=== PATIENT | male | born 1960 | race Caucasian/White ===

== ENCOUNTER 2017-11-07 08:03 | Inpatient (IN) | payer OTHER ==
[2017-11-07] VITALS (31 sets, daily range): BP systolic 104–138; BP diastolic 71–96; PULSE 179–188; RESP 5–41; TEMP 96.6–98.3; O2SAT 97–98
[~2017-11-07] VITALS: Ht 190.5 cm; Wt 107.4 kg
[2017-11-07] MEDS: HEPARIN 25,000 UNITS/D5W 250ML IV PRN (10:00)
[2017-11-07] MEDS ORDERED: ADENOSINE IV SOLN 3 MG/ML 2 ML VIAL ONE (10:06)
[2017-11-07] MEDS ORDERED: NURSING INFORMATION XX SCH (10:15)
[2017-11-07] MEDS ORDERED: METOCLOPRAMIDE HCL 10 MG/2 ML VIAL IV PUSH PRN (10:15)
[2017-11-07] MEDS ORDERED: LACTULOSE SYRUP 20 GM/30 ML CUP PO PRN (10:15)
[2017-11-07] MEDS ORDERED: CHLORHEXIDINE GLUCONATE 2 % 1 PACK (2 CLOTHS) TOP PRN (10:15)
[2017-11-07] MEDS ORDERED: ONDANSETRON ODT 4 MG TAB PO PRN (10:15)
[2017-11-07] MEDS ORDERED: BISACODYL 10 MG SUPP RECTAL PRN (10:15)
[2017-11-07] MEDS ORDERED: SODIUM CHLORIDE 0.9% FLUSH 10 ML FLUSH IV FLUSH PRN (10:15)
[2017-11-07] MEDS ORDERED: MAGNESIUM HYDROXIDE SUSP 30 ML CUP PO PRN (10:15)
[2017-11-07] MEDS ORDERED: SENNOSIDES 8.6 MG TAB PO PRN (10:15)
[2017-11-07] MEDS ORDERED: RESP: ALBUTEROL 2.5 MG/IPRATROPIUM 0.5 MG NEB (PRN) INH (10:15)
[2017-11-07] MEDS ORDERED: METOPROLOL TARTRATE 5 MG/5 ML VIAL IV PUSH ONE (10:45)
--- NOTE | 2017-11-07 11:06 | HHI.HP ---
HPI Service Critical Care Medicine Primary Care Physician No Primary Care Physician Admission Diagnosis Diagnosis: Chief Complaint: Palpitations, shortness of breath Travel History International Travel<30 Days: No Contact w/Intl Traveler <30 Da: No Traveled to Known Affected Are: No History of Present Illness History of Present Illness HPI This is a 57-year-old male who has a history of coronary artery disease status post CABG with a reduced ejection fraction of 30% and an AICD who presents to the emergency department with palpitations that started overnight, constant, severe, associated with some shortness of breath. He denies any chest discomfort. He says his AICD is set to fire at 220. He has never had symptoms like this before. He does not take any medications and does not currently follow with a spa therapist. One month ago he was evaluated in our chest pain center and had a normal stress test. He later developed shingles which was the etiology of his pain. Patient was evaluated in the ER at the [place]. He received adenosine 12 mg IV with no change in his heart rate. He was diagnosed to be in slow V. tach. Dr. Hassan from cardiology was contacted by ER physician and recommended transferring patient to the [facility] after being initiated on heparin and amiodarone drips. Patient was accepted for admission by critical care medicine service. I evaluated the patient immediately on his arrival to the ICU. At the time of my evaluation patient was resting in bed with a heart rate in the 180s however did not appear to be in any acute distress. He did complain of palpitations however denies any chest pain. He did have minimal shortness of breath at the time. Patient was on heparin and amiodarone drips. Adenosine 12 mg IV push was administered with 12-lead EKG running. Patient had absolutely no change in his heart rate which was at 188 bpm. His ICD was interrogated by ICD rep. It was reading the rhythm as SVT however there was limited data as patient was still in the acute episode per ICD rep. I spoke with Dr. Hassan personally evaluating patient and he recommended attempting Lopressor 5 mg IV for rate control PFSH Past Medical History Atrial Fibrillation: Yes Cardiovascular Problems: Yes (CAD, AFIB) Coronary Artery Disease: Yes Myocardial Infarction: Yes (X2) Past Surgical History AICD: Yes Cardiac Surgery: Yes (ABLATION, AICD) Coronary Artery Bypass Graft: Yes (X3) Social History Alcohol Use: Yes Tobacco Use: Yes (CIGARS OCCASIONALLY) Substance Use: No Allergies-Medications (Allergen,Severity, Reaction): Coded Allergies: No Known Allergies (Verified Allergy, Unknown, 11/07/17) Reported Meds & Prescriptions Reported Meds & Active Scripts Active No Active Prescriptions or Reported Medications Review of Systems Except as stated in HPI: all other systems reviewed are Neg Physical Exam Narrative GENERAL:Well appearing, no acute distress SKIN: Focused skin assessment warm and dry. HEAD: Atraumatic. Normocephalic. EYES: Pupils equal and round. No injection or drainage. ENT: Moist mucous membranes NECK: Trachea midline. CARDIOVASCULAR: Tachycardic. No murmur appreciated. RESPIRATORY: Clear to auscultation. Breath sounds equal bilaterally. GASTROINTESTINAL: Abdomen soft, non-tender, nondistended. MUSCULOSKELETAL: No obvious deformities. NEUROLOGICAL: Awake and alert. No obvious cranial nerve deficits. Moving all extremities. PSYCHIATRIC: Appropriate mood and affect; insight and judgment normal. Review of Systems Constitutional: DENIES: Diaphoretic episodes, Fatigue, Fever, Weight gain, Weight loss, Chills, Dizziness, Change in appetite, Night Sweats Endocrine: DENIES: Heat/cold intolerance, Polydipsia, Polyuria, Polyphagia Eyes: DENIES: Blurred vision, Diplopia, Eye inflammation, Eye pain, Vision loss , Photosensitivity, Double Vision Ears, nose, mouth, throat: DENIES: Tinnitus, Hearing loss, Vertigo, Nasal discharge, Oral lesions, Throat pain, Hoarseness, Ear Pain, Running Nose, Epistaxis, Sinus Pain, Toothache, Odynophagia Respiratory: COMPLAINS OF: Shortness of breath, DENIES: Apneas, Cough, Snoring , Wheezing, Hemoptysis, Sputum production Cardiovascular: COMPLAINS OF: Palpitations, DENIES: Chest pain, Syncope, Dyspnea on Exertion, PND, Lower Extremity Edema, Orthopnea, Claudication Gastrointestinal: DENIES: Abdominal pain, Black stools, Bloody stools, Constipation, Diarrhea, Nausea, Vomiting, Difficulty Swallowing, Anorexia Genitourinary: DENIES: Sexual dysfunction, Urinary frequency, Urinary incontinence, Urgency, Hematuria, Dysuria, Nocturia, Penile Discharge, Testicular Pain, Testicular Swelling Musculoskeletal: COMPLAINS OF: Back pain, DENIES: Joint pain, Muscle aches, Stiffness, Joint Swelling, Neck pain Integumentary: DENIES: Abnormal pigmentation, Nail changes, Pruritus, Rash Hematologic/lymphatic: DENIES: Bruising, Lymphadenopathy Immunologic/allergic: DENIES: Eczema, Urticaria Neurologic: DENIES: Abnormal gait, Headache, Localized weakness, Paresthesias, Seizures, Speech Problems, Tremor, Poor Balance Psychiatric: DENIES: Anxiety, Confusion, Mood changes, Depression, Hallucinations, Agitation, Suicidal Ideation, Homicidal Ideation, Delusions ROS Per HPI Physical Exam Physical Exam HEENT/Neuro: No pallor or icterus, tongue moist, DEBBIE, Awake alert oriented 3 , nonfocal grossly, moving all 4 extremities Neck: No JVD Chest/pulmonary: CTA bilaterally Cardiovascular: S1-S2 regular, ventricular rate 188 bpm, no gallop or murmur. Healed sternotomy scar noted. GI/abdomen: Soft, nontender, bowel sounds present Extremities: Warm bilaterally, no edema Laboratory Unremarkable at the [facility] Caprini VTE Risk Assessment Caprini VTE Risk Assessment: Mod/High Risk (score >= 2) Caprini Risk Assessment Model Point Value = 1 Point Value = 2 Point Value = 3 Point Value = 5 Age 41-60 Minor surgery BMI > 25 kg/m2 Swollen legs Varicose veins or History of unexplained or recurrent spontaneous Oral contraceptives or hormone replacement Sepsis (< 1 month) Serious lung disease, including pneumonia (< 1 month) Abnormal pulmonary function Acute myocardial infarction Congestive heart failure (< 1 month) History of inflammatory bowel disease Medical patient at bed rest Age 61-74 Arthroscopic surgery Major open surgery (> 45 min) Laparoscopic surgery (> 45 min) Malignancy Confined to bed (> 72 hours) Immobilizing plaster cast Central venous access Age >= 75 History of VTE Family history of VTE Factor V Leiden Prothrombin [id number] Lupus anticoagulant Anticardiolipin antibodies Elevated serum homocysteine Heparin-induced thrombocytopenia Other congenital or acquired thrombophilia Stroke (< 1 month) Elective arthroplasty Hip, pelvis, or leg fracture Acute spinal cord injury (< 1 month) Prophylaxis Regimen Total Risk Factor Score Risk Level Prophylaxis Regimen 0-1 Low Early ambulation 2 Moderate Order ONE of the following: *Sequential Compression Device (SCD) *Heparin 5000 units SQ BID 3-4 Higher Order ONE of the following medications: *Heparin 5000 units SQ TID *Enoxaparin/Lovenox 40 mg SQ daily (WT < 150 kg, CrCl > 30 mL/min) *Enoxaparin/Lovenox 30 mg SQ daily (WT < 150 kg, CrCl > 10-29 mL/min) *Enoxaparin/Lovenox 30 mg SQ BID (WT < 150 kg, CrCl > 30 mL/min) AND/OR *Sequential Compression Device (SCD) 5 or more Highest Order ONE of the following medications: *Heparin 5000 units SQ TID (Preferred with Epidurals) *Enoxaparin/Lovenox 40 mg SQ daily (WT < 150 kg, CrCl > 30 mL/min) *Enoxaparin/Lovenox 30 mg SQ daily (WT < 150 kg, CrCl > 10-29 mL/min) *Enoxaparin/Lovenox 30 mg SQ BID (WT < 150 kg, CrCl > 30 mL/min) AND *Sequential Compression Device (SCD) Assessment and Plan Assessment and Plan 57-year-old male with : Tachyarrhythmia: SVT versus slow V. tach CAD Ischemic cardiomyopathy History of A. fib History of CABG/Maze procedure History of ICD placement Plan: Neuro: Follow neuro status. avoid sedatives and narcotics. Cardiovascular: Started on heparin for anticoagulation and amiodarone gtt. following bolus. Did not respond with adenosine 12 mg IV with absolutely no change in heart rate raising concern for accessory pathway SVT versus slow V. tach. Discussed with Dr. Moe Hassan from cardiology. He recommends awaiting 2D echo and administering Lopressor 5 mg IV. He will be evaluating patient to decide further course of action. If patient does not convert possible need for ИРИНА and electrical cardioversion. Pulmonary: Supplemental O2. GI/liver: N.p.o. for now until cardiology evaluation. Renal/: IV hydration, strict intake output, monitor and replete electrolytes, follow BUN/creatinine. ID: No indication for antibiotics at this time. Heme: On any coagulation with heparin. Endocrine: Watch for hyperglycemia, SSI for glycemic control if needed Prophylaxis: On heparin for full anticoagulation. No indication for GI prophylaxis at this time. Further recommendations per Dr. Moe Hassan. Discussed with Dr. Dr. Hassan personally. Discussed current clinical status with patient and updated regarding plan of care and he voiced understanding and was agreeable. Chago Choi MD November 07, 2017 11:06
[2017-11-07] MEDS: SODIUM CHLOR 0.9% 1000 ML INJ 1,000 ML IV SCH ×2 (11:23→20:20)
[2017-11-07] MEDS ORDERED: AMIODARONE INJ 450 MG in DEXTROSE 5% IN WATE(EXCEL) INJ 241 ML IV PRN ×2 (14:58)
[2017-11-07] MEDS ORDERED: HEPARIN-D5W 25,000 U/250 ML 250 ML IV PRN (15:00)
[2017-11-07] MEDS ORDERED: AMIODARONE INJ 450 MG in D5W (EXCEL BAG) INJ 241 ML IV PRN (15:00)
[2017-11-07] MEDS: AMIODARONE INJ 450 MG in SODIUM CHLOR 0.9% 250 ML INJ 241 ML IV PRN (15:36)
[2017-11-07 15:40] LABS: HEMATOCRIT 44.1 % (39.0-51.0); HEMOGLOBIN 14.9 GM/DL (13.0-17.0); MEAN CELL VOLUME 99.8 FL (80.0-100.0); MEAN CORPUSCULAR HEMOGLOBIN 33.7 PG (27.0-34.0); MEAN CORPUSCULAR HGB CONC 33.7 % (32.0-36.0); MEAN PLATELET VOLUME 10.2 FL (7.0-11.0); PLATELET COUNT 178 TH/MM3 (150-450); RED BLOOD COUNT 4.42 MIL/MM3 (4.50-5.90); RED CELL DISTRIBUTION WIDTH 13.8 % (11.6-17.2); WHITE BLOOD COUNT 12.4 TH/MM3 (4.0-11.0)
--- NOTE | 2017-11-07 18:04 | ECHRPT ---
Indication: EVAL FOR APICAL THROMBUS CONCLUSIONS The left ventricular systolic function is severely reduced with an estimated ejection fraction @ 30% Severely dilated left ventricle. Mild concentric left ventricular hypertrophy. There is global left ventricular dysfunction. The left atrial size is moderately dilated. Trace mitral valve regurgitation. There is trace tricuspid valve regurgitation. The pulmonary valve is not well visualized. BP: / HR: Rhythm: Other MEASUREMENTS (Male / Female) Normal Values Technical Quality:Poor 2D ECHO LV Diastolic Diameter PLAX 6.0 cm 4.2 - 5.9 / 3.9 - 5.3 cm LV Systolic Diameter PLAX 5.8 cm IVS Diastolic Thickness 1.3 cm 0.6 - 1.0 / 0.6 - 0.9 cm LVPW Diastolic Thickness 1.2 cm 0.6 - 1.0 / 0.6 - 0.9 cm LV Relative Wall Thickness 0.4 LVOT Diameter 2.1 cm LA Systolic Diameter LX 4.8 cm 3.0 - 4.0 / 2.7 - 3.8 cm M-MODE Aortic Root Diameter MM 3.0 cm AV Cusp Separation MM 1.5 cm DOPPLER AV Peak Velocity 81.4 cm/s AV Peak Gradient 2.7 mmHg LVOT Peak Velocity 66.6 cm/s LVOT Peak Gradient 1.8 mmHg AV Area Cont Eq pk 2.8 cm MV Area PHT 12.2 cm PV Peak Velocity 59.7 cm/s PV Peak Gradient 1.4 mmHg FINDINGS LEFT VENTRICLE The left ventricular systolic function is severely reduced with an estimated ejection fraction less than 20%. Severely dilated left ventricle. Mild concentric left ventricular hypertrophy. There is global left ventricular dysfunction. RIGHT VENTRICLE Normal right ventricular size and systolic function. LEFT ATRIUM The left atrial size is moderately dilated. RIGHT ATRIUM The right atrial size is normal. ATRIAL SEPTUM Normal atrial septal thickness without atrial level shunting by limited color doppler interrogation. AORTA The aortic root and proximal ascending aorta are normal in size on limited imaging. MITRAL VALVE Structurally normal mitral valve. Trace mitral valve regurgitation. AORTIC VALVE Trileaflet aortic valve. No aortic valve stenosis or regurgitation. TRICUSPID VALVE Structurally normal tricuspid valve. There is trace tricuspid valve regurgitation. PULMONARY VALVE The pulmonary valve is not well visualized. VESSELS The inferior vena cava is normal in size. PERICARDIUM No pericardial effusion. Moe Hassan MD, FACC, [facility] (Electronically Signed) Final Date:07 Nov 2017 18:03
[2017-11-07] MEDS ORDERED: ASPIRIN EC 81 MG TABEC PO ONE (20:00)
[2017-11-07] MEDS: DOCUSATE SODIUM 50 MG/SENNA 8.6 MG TAB PO SCH (20:19)
[2017-11-07] MEDS: SODIUM CHLORIDE 0.9% FLUSH 10 ML FLUSH IV FLUSH SCH (20:19)
--- NOTE | 2017-11-07 21:29 | MB ---
cc: Moe Hassan MD DATE: 11/07/2017 HISTORY OF PRESENT ILLNESS: Alonzo is a very pleasant 57-year-old gentleman with history of CABG which was done in 2013 cardiomyopathy, with a known ejection fraction of 30%, status post ICD, presents to the [place] ER with chief complaint of palpitations, dyspnea. Denied any chest pain. Denied any syncope. He was transferred for further evaluation. Dr. Choi tried adenosine 12 mg IV push, which did not improve the arrhythmia. His ICD was interrogated, which showed supraventricular etiology. The patient was put on the amiodarone drip and an attempt was made to give him 5 mg of IV Lopressor, which he did not tolerate due to a mean arterial pressure of 60 and diaphoresis. The patient otherwise denies any fever, chills, cough, GI or , bleeding, PND, orthopnea, dizziness. PAST MEDICAL HISTORY: As per history of present illness. The patient has a history of AFib, myocardial infarction x 2, history of ablation. SOCIAL HISTORY: Drinks alcohol, smokes cigars occasionally. ALLERGIES: NONE. CURRENT MEDICATIONS: In the hospital, IV heparin IV amiodarone. PHYSICAL EXAMINATION: VITAL SIGNS: Pulse 183, blood pressure 129/93, temperature 98.3, sats 98% on room air. GENERAL: He is alert and oriented x 3, in no acute distress. NECK: Supple. No JVD. No bruit. CARDIOVASCULAR: S1, S2. No murmurs, rubs, gallops. PULMONARY: Lungs clear to auscultation bilaterally. ABDOMEN: Soft, nontender, nondistended, with positive bowel sounds. EXTREMITIES: No lower extremity edema. LABORATORY DATA: Chest x-ray shows no acute cardiopulmonary disease, status post CABG, mild cardiomegaly. STUDY: EKG is not available to review in the computer. His echocardiogram read by myself shows an EF of 30%, mild LVH, trace MR, PA pressure not determined. LABORATORY DATA: White count 12.4, hemoglobin 14.9, hematocrit 44.1, platelet count 78. INR is 31.4. Sodium 144, potassium 3.6, chloride 111, bicarbonate 24.0, BUN 15, creatinine 1.0, glucose 131. Troponin less than 0.02. BNP is 68. HE HAS THE FOLLOWING DIAGNOSES: 1. Supraventricular tachycardia. 2. Coronary artery disease. 3. Cardiomyopathy. 4. Status post implantable cardioverter defibrillator. 5. Elevated white count. 6. Palpitations. 7. Dyspnea. 8. Tobacco abuse. PLAN: At this point in time, the ICD interrogation shows SVT. Due to the history of atrial fibrillation, I have recommended not to cardiovert him, particularly in the context of cardiomyopathy as well. He is euvolemic by BMP and his ejection fraction is 30% on the current echo, which is his baseline. At this point in time, I recommend continuing IV heparin. We will add aspirin. We will continue to trend the troponins, continue the amiodarone drip. We will get a consult with Dr. Felder in the a.m. Continue telemetry monitoring and continue to follow trends in the heart rate and blood pressure and symptoms. Strongly recommend smoking cessation. MD GIULIANA Owens/FROILAN , 07:55 PM , 09:28 PM
[2017-11-07] MEDS: MELATONIN 5 MG TAB PO SCH (21:57)
[2017-11-08] VITALS (63 sets, daily range): BP systolic 109–165; BP diastolic 54–93; PULSE 92–184; RESP 17–38; TEMP 96.8–99.3; O2SAT 91–100
[2017-11-08] MEDS: CHLORHEXIDINE GLUCONATE 2 % 1 PACK (2 CLOTHS) TOP SCH (01:03)
[2017-11-08] MEDS: MORPHINE SULFATE 4 MG/ML INJ IV PUSH PRN ×4 (02:45→21:46)
[2017-11-08 03:57] LABS: AUTOMATED NEUTROPHIL # 11.2 TH/MM3 (1.8-7.7); BASOPHIL # 0.1 TH/MM3 (0-0.2); BASOPHIL % 0.4 % (0.0-2.0); EOSINOPHIL % 0.1 % (0.0-4.0); HEMATOCRIT 43.8 % (39.0-51.0); HEMOGLOBIN 14.7 GM/DL (13.0-17.0); LYMPH % 14.8 % (9.0-44.0); LYMPHOCYTE # 2.2 TH/MM3 (1.0-4.8); MEAN CELL VOLUME 99.2 FL (80.0-100.0); MEAN CORPUSCULAR HEMOGLOBIN 33.3 PG (27.0-34.0); MEAN CORPUSCULAR HGB CONC 33.6 % (32.0-36.0); MEAN PLATELET VOLUME 10.6 FL (7.0-11.0); MONO % 8.8 % (0.0-8.0); MONOCYTE # 1.3 TH/MM3 (0-0.9); NEUT % 75.9 % (16.0-70.0); PLATELET COUNT 176 TH/MM3 (150-450); RED BLOOD COUNT 4.42 MIL/MM3 (4.50-5.90); RED CELL DISTRIBUTION WIDTH 13.7 % (11.6-17.2); WHITE BLOOD COUNT 14.8 TH/MM3 (4.0-11.0)
[2017-11-08 04:18] LABS: ALBUMIN 3.3 GM/DL (3.4-5.0); AST (GOT) 51 U/L (15-37); BICARBONATE 19.7 MEQ/L (21.0-32.0); BLOOD UREA NITROGEN 17 MG/DL (7-18); CALCIUM 7.7 MG/DL (8.5-10.1); CHLORIDE 108 MEQ/L (98-107); CHOLESTEROL 218 MG/DL (120-200); CREATININE 1.02 MG/DL (0.60-1.30); GLOMERULAR FILTRATION RATE 76 ML/MIN (>89); GLUCOSE,RANDOM 141 MG/DL (74-106); MAGNESIUM 1.7 MG/DL (1.5-2.5); SODIUM (NA) 141 MEQ/L (136-145); TRIGLYCERIDES 320 MG/DL (42-150)
[2017-11-08 04:22] LABS: ALKALINE PHOSPHATASE 59 U/L (45-117); ALT (GPT) 80 U/L (12-78); CHOLESTEROL/ HDL RATIO 5.73 RATIO; LDL CHOLESTEROL 116 MG/DL (0-99); PHOSPHORUS 3.1 MG/DL (2.5-4.9); TOTAL BILIRUBIN ADULT 0.7 MG/DL (0.2-1.0); TOTAL PROTEIN 7.3 GM/DL (6.4-8.2); TROPONIN I 0.27 NG/ML (0.02-0.05)
[2017-11-08] MEDS ORDERED: PROMETHAZINE INJ 25 MG/ML VIAL IM ONE (05:45)
[2017-11-08] MEDS: HEPARIN 25,000 UNITS/D5W 250ML IV PRN (06:22)
[2017-11-08] MEDS: AMIODARONE INJ 450 MG in SODIUM CHLOR 0.9% 250 ML INJ 241 ML IV PRN ×2 (07:30→20:16)
[2017-11-08] MEDS: ASPIRIN EC 81 MG TABEC PO SCH (08:02)
[2017-11-08] MEDS: SODIUM CHLORIDE 0.9% FLUSH 10 ML FLUSH IV FLUSH SCH ×2 (08:02→20:15)
[2017-11-08] MEDS: DOCUSATE SODIUM 50 MG/SENNA 8.6 MG TAB PO SCH ×2 (08:03→20:15)
[2017-11-08] MEDS: SODIUM CHLOR 0.9% 1000 ML INJ 1,000 ML IV SCH ×2 (09:23→20:17)
[2017-11-08] MEDS ORDERED: HEPARIN-NS/PF INJ 0 ML ONE (12:11)
[2017-11-08] MEDS ORDERED: ISOPROTERENOL INJ PREMIX 0 ML IV ONE (12:11)
[2017-11-08] MEDS ORDERED: PROTAMINE SULFATE 50 MG/5 ML VIAL ONE (12:12)
[2017-11-08] MEDS ORDERED: HEPARIN-D5W 25,000 U/250 ML 0 ML ONE (12:13)
--- NOTE | 2017-11-08 12:14 | HHI.CCPN ---
Subjective Remarks/Hospital Course 11/07:This is a 57-year-old male who has a history of coronary artery disease status post CABG with a reduced ejection fraction of 30% and an AICD who presents to the emergency department with palpitations that started overnight, constant, severe, associated with some shortness of breath. He denies any chest discomfort. He says his AICD is set to fire at 220. He has never had symptoms like this before. He does not take any medications and does not currently follow with a assistant director of residence life. One month ago he was evaluated in our chest pain center and had a normal stress test. He later developed shingles which was the etiology of his pain. Patient was evaluated in the ER at [place]. He received adenosine 12 mg IV with no change in his heart rate. He was diagnosed to be in slow V. tach. Dr. Hassan from cardiology was contacted by ER physician and recommended transferring patient to the [facility] after being initiated on heparin and amiodarone drips. Patient was accepted for admission by critical care medicine service. I evaluated the patient immediately on his arrival to the ICU. At the time of my evaluation patient was resting in bed with a heart rate in the 180s however did not appear to be in any acute distress. He did complain of palpitations however denies any chest pain. He did have minimal shortness of breath at the time. Patient was on heparin and amiodarone drips. Adenosine 12 mg IV push was administered with 12-lead EKG running. Patient had absolutely no change in his heart rate which was at 188 bpm. His ICD was interrogated by ICD rep. It was reading the rhythm as SVT however there was limited data as patient was still in the acute episode per ICD rep. I spoke with Dr. Hassan personally evaluating patient and he recommended attempting Lopressor 5 mg IV for rate control. 11/08: Patient complaining of some shortness of breath and chest discomfort this morning. He had a heart rate of 180s when I was evaluating patient however maintaining his blood pressure. Subsequently he reportedly converted to sinus rhythm when being evaluated by Dr. Felder. Objective Vital Signs Date Time Temp Pulse Resp B/P (MAP) Pulse Ox O2 Delivery O2 Flow Rate FiO2 11/08/17 11:47 98 Nasal Cannula 2.00 11/08/17 07:30 180 125/81 11/08/17 04:00 96.8 18 Intake and Output 5/29/18 5/29/18 5/30/18 08:00 16:00 00:00 Intake Total 1108 ml Output Total 350 ml Balance 758 ml Result Diagram: 11/08/17 0320 11/08/17 0320 Objective Remarks HEENT/Neuro: No pallor or icterus, tongue moist, DEBBIE, Awake alert oriented 3 , nonfocal grossly, moving all 4 extremities Neck: No JVD Chest/pulmonary: CTA bilaterally Cardiovascular: S1-S2 regular, ventricular rate 188 bpm at the time of my evaluation, no gallop or murmur. Healed sternotomy scar noted. GI/abdomen: Soft, nontender, bowel sounds present Extremities: Warm bilaterally, no edema A/P Assessment and Plan 57-year-old male with : Tachyarrhythmia: SVT versus slow V. tach CAD Ischemic cardiomyopathy History of A. fib History of CABG/Maze procedure History of ICD placement Plan: Neuro: Follow neuro status. avoid sedatives and narcotics. Cardiovascular: Started on heparin for anticoagulation and amiodarone gtt. following bolus. Did not respond with adenosine 12 mg IV with absolutely no change in heart rate raising concern for accessory pathway SVT versus slow V. tach. Discussed with Dr. Moe Hassan from cardiology. EP consulted per Dr. Hassan. Patient reportedly converted to sinus rhythm and Dr. Hassan is planning cardiac catheterization. Pulmonary: Supplemental O2. GI/liver: N.p.o. for now until cardiology evaluation. Renal/: IV hydration, strict intake output, monitor and replete electrolytes, follow BUN/creatinine. ID: No indication for antibiotics at this time. Heme: On anticoagulation with heparin. Endocrine: Watch for hyperglycemia, SSI for glycemic control if needed Prophylaxis: On heparin for full anticoagulation. No indication for GI prophylaxis at this time. Further recommendations per Dr. Moe Hassan. Discussed current clinical status with patient and updated regarding plan of care and he voiced understanding and was agreeable. Patient will be transferred to hospitalist service for further medical management as he has converted out of this tachyarrhythmia. Chago Choi MD November 08, 2017 12:14
--- NOTE | 2017-11-08 13:31 | EKG ---
Date Performed: 11/07/2017 Time Performed: 10:16:26 PTAGE: 57 years EKG: Probable ventricular tachycardia. IV conduction defect Inferior infarct - age undetermined Possible septal infarct - age undetermined LVH with secondary repolarization abnormality Marked preco rdial ST depression, CONSIDER ACUTE INFARCT Lateral ST-T changes are probably due to ventricular hype rtrophy Abnormal ECG NO PREVIOUS TRACING Clinical correlation is strongly recommended . DOCTOR: Braden Walden Interpretating Date/Time 11/08/2017 13:30:22
--- NOTE | 2017-11-08 13:31 | EKG ---
Date Performed: 11/08/2017 Time Performed: 09:42:32 PTAGE: 57 years EKG: Sinus rhythm . Rightward axis IV conduction defect Inferior ST-T changes may be due to myocardial ischemia Abnorma l ECG PREVIOUS TRACING : 11/07/2017 10.16 Since prior tracing, the rate has slowed, and there is now sinus rhythm. Continued clinical correlation is recommended. DOCTOR: Braden Walden Interpretating Date/Time 11/11/2017 08:16:52
[2017-11-08] MEDS ORDERED: HEPARIN-NS/PF INJ 1,500 ML ONE (14:00)
[2017-11-08] MEDS ORDERED: MIDAZOLAM HCL 2 MG/2 ML VIAL ONE (14:01)
--- NOTE | 2017-11-08 14:15 | MB ---
cc: Lilia Felder MD,Moe Angel MD DATE: 11/08/2017 HISTORY OF PRESENT ILLNESS: Mr. Huynh is a 57-year-old, gentleman with history of coronary artery disease, coronary artery bypass grafting, previous defibrillator implanted, previous maze procedure during a CABG that was in 2013, admitted due to a wide complex tachyarrhythmia. Heart rate very difficult to control despite multiple medications. Very symptomatic. I was consulted for evaluation and management. The chart was reviewed. The patient was evaluated. ALLERGIES: NONE. SOCIAL HISTORY: The patient used to smoke cigars and drink before hospitalization. FAMILY HISTORY: Noncontributory to his current medical condition. MEDICATIONS: He is on IV heparin. He is on amiodarone IV. He is on aspirin and melatonin. REVIEW OF SYSTEMS: He referred feeling tired, can barely talk at the beginning. No vomiting. No fever. PHYSICAL EXAMINATION: GENERAL: Alert, fully oriented. VITAL SIGNS: Blood pressure 120/83, pulse 185-190 beats per minute, respiratory rate 18. LUNGS: Ventilated. CARDIOVASCULAR: S1, S2, tachycardic. ABDOMEN: Soft, obese. No mass. EXTREMITIES: No edema. SKIN: Left infraclavicular area with device pocket. LABORATORY DATA: Hemoglobin is 14.7, white blood cell 14.8. Potassium 4.6, creatinine 1.02. Troponin 0.27. BNP only 480. ASSESSMENT AND RECOMMENDATIONS: Mr. Huynh was in this arrhythmia for the past 24 hours. While I am talking to the gentleman, the gentleman converted into sinus rhythm with a different axis. Interrogation of the device reports supraventricular tachyarrhythmia. I am not sure if there was a supraventricular tachyarrhythmia that degenerated into ventricular arrhythmia because there is complete change of axis during the tachyarrhythmia. The gentleman refers previous episodes in the past. He has shortness of breath and was very tired. He has an ejection fraction of less than 20%; Dr. Hassan refers around 15%. I discussed the case extensively with the patient, as well as with Dr. Hassan. The patient is back into sinus rhythm. At this point my recommendation is for electrophysiology study. Based on the result, further decision be taking about his management. The gentleman is doing far better right now that the heart rate is controlled. I will monitor him during the hospitalization. ? MD MABLE Lopez/JONAS/ , 12:41 PM , 01:29 PM
[2017-11-08] MEDS ORDERED: ADENOSINE STRESS TEST INJ 90 MG/30 ML VIAL ONE (14:55)
[2017-11-08] MEDS ORDERED: FUROSEMIDE 40 MG/4 ML VIAL ONE (15:43)
[2017-11-08] MEDS ORDERED: CLOPIDOGREL 300 MG TAB ONE (15:48)
[2017-11-08] MEDS ORDERED: HEPARIN SODIUM - IV 10,000 UNITS/10 ML VIAL ONE (15:58)
[2017-11-08] MEDS ORDERED: MISC INFORMATION XX ONE (16:15)
[2017-11-08] MEDS ORDERED: SODIUM CHLORIDE 0.9% FLUSH 10 ML FLUSH IV FLUSH PRN (16:15)
--- NOTE | 2017-11-08 16:17 | CATHPROC ---
[facility] HIS Report Study Information Study Number Admission Scheduled Start Study Start [id number] Nov 07 2017 9:37AM 11/08/2017 Nov 08 2017 1:56PM [place] [facility] Cardiac Catheterization Admit Source Facility Department Other [facility] - Yeast Culture Operator Physician and Clinical Staff Initial Moe Garcia Building Estimator Balbir Connell,RITESH Other Taj Pederson,RITESH Recorder Yasmin Loya,RT(R) Scrub Manisha Humphries ,RT(R) Procedures Performed Procedure Location (Site) Vessel Name Coronary Angiograms LCA Left Coronary Coronary Angiograms RCA Right Coronary Coronary Angiograms HENDERSON-LAD Left Coronary Coronary Angiograms SVG-DIAG Left Coronary Coronary Angiograms SVG-RCA Right Coronary Stent SVG-RCA Right Coronary Stent LAD Ost Left Coronary Stent LAD Prox Left Coronary Wire insertion Fem Art (right) Femoral Art Wire insertion Fem Vein (right) Femoral Vein Equipment Time Supply Officer Description Size Mfg Part Number Used/Scraped CATHETER, FR5 SWAN FRED 14:18 BRAMBILA THOMPSON FR 5 [id number] *[id number] Used MONITOR TRANSDUCER, TRUWAVE [id number] 14:07 BRAMBILA THOMPSON * Used W/STOCKCOCK *[id number] TRANSDUCER, TRUWAVE [id number] 14:18 BRAMBILA THOMPSON * Used W/STOCKCOCK *[id number] [phone] *[id number] 538-448 *[id number] 538-420 *[id number] 538-422 *[id number] 538-421 *3795589 670-054-00 *[id number] 670-056-00 *[id number] 14:07 MEDLINE INDUSTRIES PACK, CCL CUSTOM * Used *[id number] 14:07 MEDLINE PACER PEN, SKIN DUAL W/ RULER * Used *[id number] 15:40 MEDTRONIC STENT, 3.0 9 INTEGRITY 3.0 9 Used *[id number] 15:08 MEDTRONIC STENT, 4.0 18 INTEGRITY 4.0 18 Used *[id number] 15:00 MEDTRONIC STENT, 4.0 9 INTEGRITY 4.0 9 [id number] Used [id number] 15:02 [employer]steres MEDICAL 30 RILEY INDEFLATOR Used *[id number] 14:18 [employer] MEDICAL SHEATH, FR5.5 PRELUDE 11CM FR 5.5 Used 038ACT# [id number] 14:48 MERIT MEDICAL SHEATH, FR6.5 PRELUDE 11CM FR 6.5 038ACT Used *[id number] 14:18 [employer] MEDICAL WIRE, 3MMJ .035 180CM 180CM Used *[id number] 14:18 NAMIC MANIFOLD, 4 PORT * Used *[id number] 14:07 NYCOMED OMNIPAQUE, 350 MG, 150ML 150ML [id number] Used 14:18 NYCOMED OMNIPAQUE, 350 MG, 150ML 150ML [id number] Used 15:00 NYCOMED OMNIPAQUE, 350 MG, 50ML 50ML [id number] Used 15:00 NYCOMED OMNIPAQUE, 350 MG, 50ML 50ML [id number] Used NEEDLE, FEMORAL ONE STICK, [id number] 14:26 NIR 18GA Used 18GA *[id number] [id number] 14:07 [facility] BLANKET,WARM AIR CCL * Used *[id number] 14:18 TERUMO MEDICAL SHEATH, FR4 TERUMO (10CM) FR 4 Used *[id number] 14:52 [place] PRIME WIRE, VERRATA 185CM 185CM Used *[id number] Equipment Model, Serial, Lot Number and Expiration Data Description Model Number Serial Number Lot Number Expiration Date PRIME WIRE, VERRATA 185CM 25093 [id number] 10-10-2020 STENT, 3.0 9 INTEGRITY [id number] 02-22-2019 STENT, 4.0 18 INTEGRITY [id number] 11-19-2017 STENT, 4.0 9 INTEGRITY [id number] 02-10-2019 History: Current Medications Medication Dosage/Unit Route Frequency Last Date/Time Taken ASA History: Allergies Allergy Reaction No Known Allergies History: Risk Factors Family History of Hypertension Dyslipidemia Previous NE Previous Heart Failure Premature CAD Yes Yes Yes Yes Yes Prior Valve Prior PCI Prior CABG Prior CABGDate Surgery No No Yes 06/13/2013 Cerebrovascular Peripheral Artery Chronic Lung On Dialysis Diabetes Disease Disease Disease No No Yes No No History: Symptoms/Diagnosis Selection Items Chest pain History: Stress Tests Stress or Imaging Studies Performed No History: Other Current Smoker No Labs Hgb (g/dl) Hct (%) WBC (l/cumm) Platelets (thousands) 11.60-17.00 35.00-51.00 4.00-11.00 150.00-450.00 14.7 43.8 14.8 176 Glucose (mg/dl) BUN (mg/dl) Creatinine (mg/dl) BUN:Creatinine (1:x) 74.00-106.00 7.00-18.00 0.50-1.30 10.00-20.00 141 17 1.0 17 Na (meq/l) K (meq/l) 136.00-145.00 3.50-5.10 141 4.6 Troponin I (ng/ml) CPK-MB (ng/ML) 0.02-0.05 0.50-3.60 0.27 Not Drawn Medication Medication Total Dose (Bolus/Oral) Medication Total Dosage/Unit 1% XYLOCAINE 20 mL FENTANYL 25 mcg HEPARIN 86953 units LASIX 40 mg PLAVIX 600 mg VERSED 1 mg Medications (Bolus/Oral) Medication Time Given Dosage/Unit Administered By Reason VERSED 11/08/2017 2:24:53 PM 1 mg Becki Balbir 1 mg VERSED given in lab by Balbir Connell RN via Peripheral IV. FENTANYL 11/08/2017 2:25:20 PM 25 mcg Becki, Balbir 25 mcg FENTANYL given in lab by Balbir Connell RN via Peripheral IV. 1% XYLOCAINE 11/08/2017 2:26:40 PM 20 mL SonyaMoe 20 mL 1% XYLOCAINE given in lab by Moe Hassan in Right Groin via Subcutaneous. HEPARIN 11/08/2017 2:53:50 PM 8000 units Becki, Balbir 8000 units HEPARIN given in lab by Balbir Connell RN via Peripheral IV. HEPARIN 11/08/2017 3:11:18 PM 2000 units Becki, Balbir 2000 units HEPARIN given in lab by Balbir Connell RN via Peripheral IV. HEPARIN 11/08/2017 3:23:25 PM 2000 units Becki, Balbir 2000 units HEPARIN given in lab by Balbir Connell RN via Peripheral IV. LASIX 11/08/2017 3:46:40 PM 40 mg Becki, Balbir 40 mg LASIX given in lab by Balbir Connell RN via Peripheral IV. PLAVIX 11/08/2017 3:52:44 PM 600 mg Becki, Balbir 600 mg PLAVIX given in lab by Balbir Connell RN via Oral. Medication (Drip) Medication Time Given Dosage/Unit Concentration/Unit Diluent (ml) Solution ADENOSINE DRIP 11/08/2017 3:23:04 PM 140 mcg/kg/min 90 mg 90 NaCl .9 140 mcg/kg/min ADENOSINE DRIP given in lab by Balbir Connell RN via Peripheral IV. Pump/Drip Flow = 95 5.92 ml/hr using NaCl .9 with a concentration of 90 mg in 90 ml. Amiodarone Drip 11/08/2017 2:09:30 PM 17 mL/hr 450 mL 250 D5W Patient arrived on 17 mL/hr Amiodarone Drip in Right Antecubital via Peripheral IV. Pump/Drip Flow = 9.44 ml/hr using D5W with a concentration of 450 mL in 250 ml. IV Solutions 11/08/2017 1:56:25 PM 0 mL (IV) 500 NaCl .9 Patient arrived on IV Solutions in Left Antecubital via Peripheral IV. Pump/Drip Flow = 20 ml/hr usin g NaCl .9. Initial Case Assessment Cardiovascular HR Rhythm NIBP Chest Pain 96 reg 151/90 0 Edema Present Skin color Skin None Normal Warm Circulatory - Right Pulses Dorsalis Pedis Femoral 1 1 Scale (0,1,2,3,4,d) Circulatory - Left Pulses Dorsalis Pedis Femoral 1 1 Scale (0,1,2,3,4,d) Circulatory - Lower Extremities Color Lower Right Color Lower Left Normal Normal Neurological State Oriented to time-place- Alert Moves all extremities person Respiration - General Respiration Rate SpO2 (%) O2 (lpm) (B/min) 20 97 4 Chronological Log Time Study Chronological Log 13:55:10 Patient arrived via Bed. 13:56:16 Patient Name, D.O.B, / Armband Verified By R.N. 13:56:16 Consent signed by the physician and the patient and verified by the Yeast Culture Operator staff. 13:56:17 Pre-op and post- op instructions given; patient acknowledges understanding of instruction s. 13:56:18 Verbal Stimulation=2 Physical Stimulation=2 Airway=2 Respiration=2 TOTAL=8. (0=absent, 1= limited, 2=present) 13:56:21 Patient has been NPO for More than 6Hrs. 13:56:22 Skin Breakdown-none 13:56:24 A # 20 IV was noted in the Antecubital (left). Grade = 0 13:56:25 Patient arrived on IV Solutions in Left Antecubital via Peripheral IV. Pump/Drip Flow = 20 ml/hr using NaCl .9. 13:56:29 History and physical on the chart or being dictated. Assessment: Initial Case, HR=96 BPM, Rhythm=reg, KGZI=261/90 mmhg, Chest Pain=0, Edema=None, Co oscar=Normal, Skin = Warm Right Pulses: Robert Ped=1, Femoral=1 Left Pulses: Robert Ped=1, Femoral=1 13:56:30 Lower Right Extremities: Color=Normal Lower Left Extremities: Color=Normal Neurological: State=Alert, Ox3, LANE Respiration: Resp=20 B/min, SpO2=97 %, O2=4 lpm Vitals capture started with the following parameters, Patient=Adult, Interval=5 min, Initial Pr hbrfwj=332 mmHg, 14:02:39 Deflation Rate=5 mmHg, Cuff placed on left Arm 14:04:33 HR=86 bpm, OUTG=474/95 mmhg, SpO2=98.0 %, Pain=0, Yoav=10, Falk=2 14:06:03 Reference ECG taken 14:08:20 HR=96 bpm, YGDB=582/95 mmhg, SpO2=96.0 %, Resp=17 B/min, Pain=0, Yoav=10, Falk=2 14:08:48 A # 20 IV was noted in the Wrist (right). Grade = 0 saline locked 14:09:09 A # 20 IV was noted in the Antecubital (right). Grade = 0 Patient arrived on 17 mL/hr Amiodarone Drip in Right Antecubital via Peripheral IV. Pump/Drip F low = 9.44 ml/hr using 14:09:30 D5W with a concentration of 450 mL in 250 ml. 14:13:25 HR=96 bpm, LQSB=359/82 mmhg, SpO2=96.0 %, Resp=22 B/min, Pain=0, Yoav=10, Falk=2 14:18:20 HR=95 bpm, UWVS=648/90 mmhg, SpO2=96.0 %, Resp=20 B/min, Pain=0, Yoav=10, Falk=2 14:21:05 History and physical on the chart or being dictated. 14:21:09 Bilateral groins prepped with 2% chlorhexidine, and draped after a 3 minute waiting time. 14:21:14 MD arrived. 14:23:21 HR=96 bpm, XYHR=280/91 mmhg, SpO2=96.0 %, Resp=36 B/min, Pain=0, Yoav=10, Falk=2 Time Out. Correct patient, correct procedure, correct physician, labs, allergies, and equipment verified with bobcat driver/labor 14::28 team present. Fire risk assesment completed (see hard stop sheet for coding). Time Out Conc urred by MD and individual staff in procedure. 14:24:15 Pressure channel 1 zeroed. 14:24:53 1 mg VERSED given in lab by Balbir Connell, RN via Peripheral IV. 14:25:20 25 mcg FENTANYL given in lab by Balbir Connell RN via Peripheral IV. 14:26:33 Case Start 14:26:34 Verbal Stimulation=2 Physical Stimulation=2 Airway=2 Respiration=2 TOTAL=8. (0=absent, 1=li mited, 2=present) 14:26:40 20 mL 1% XYLOCAINE given in lab by Moe Hassan in Right Groin via Subcutaneous. 14:27:16 Access site was Right Femoral Vein. 14:27:27 A WIRE, 3MMJ .035 180CM 180CM was inserted via Fem Vein (right). 14:27:48 A SHEATH, FR5.5 PRELUDE 11CM FR 5.5 was advanced into the Fem Vein (right) using the Percut aneous technique. 14:28:03 Access site was Right Femoral Artery. 14:28:09 A wire was inserted via Fem Art (right). 14:28:14 A SHEATH, FR4 TERUMO (10CM) FR 4 was advanced into the Fem Art (right) using the Percutaneo us technique. 14:28:25 HR=95 bpm, VGAC=774/83 mmhg, SpO2=97.0 %, Resp=17 B/min, Pain=0, Yoav=10, Falk=2 14:29:05 Saturation: Site=Ao (Aorta) , O2=96.2 %, Hgb=14.7 gm/dl, Condition=Condition 1. Used in dilip culation. 14:30:17 A CATHETER, FR5 SWAN FRED MONITOR FR 5 was inserted via Fem Vein (right) Recorded Pressure: PCW, HR=96, Condition=Condition 1 14:32:42 (Pulmonary Capillary Wedge) PCW 29/27/27 14:33:21 HR=96 bpm, NHIO=176/78 mmhg, SpO2=96.0 %, Resp=25 B/min, Pain=0, Yoav=10, Falk=2 Recorded Pressure: MPA, HR=96, Condition=Condition 1 14:33:28 (Main Pulmonary Artery) MPA 60/25/44 Recorded Pressure: RV, HR=97, Condition=Condition 1 14:34:22 (Right Ventricle) RV 62/21/32 Recorded Pressure: RA, HR=96, Condition=Condition 1 14:34:41 (Right Atrium) RA 18/16/13 14:34:59 Saturation: Site=PA (Pulmonary Artery) , O2=70.4 %, Hgb=14.7 gm/dl, Condition=Condition 1. Used in calculation. 14:35:58 Saturation: Site=RA (Right Atrium) , O2=72 %, Hgb=14.7 gm/dl, Condition=Condition 1. Used i n calculation. 14:36:13 [place] Fred Catheter Removed A JR 4.0 INFINITI CATHETER FR 4 was advanced over a wire. OMNIPAQUE, 350 MG, 150ML 150ML was us ed for 14:36:17 injections. Recorded Pressure: LV, HR=96, Condition=Condition 1 14:36:48 (Left Ventricle) LV -114/-159/-163 Recorded Pressure: LV, Ao, HR=96, Condition=Condition 1 14:37:07 (Left Ventricle) LV 118/4/16, (Aorta) Ao 125/76/96 14:38:23 The RCA was injected and visualized at various angles. OMNIPAQUE, 350 MG, 150ML 150ML used . 14:38:49 The SVG-DIAG was injected and visualized at various angles. OMNIPAQUE, 350 MG, 150ML 150ML used. 14:38:51 HR=96 bpm, CTZP=636/85 mmhg, SpO2=95.0 %, Resp=19 B/min, Pain=0, Yoav=10, Falk=2 Recorded Pressure: Ao, HR=97, Condition=Condition 1 14:38:59 (Aorta) Ao 118/77/94 14:39:57 The SVG-RCA was injected and visualized at various angles. OMNIPAQUE, 350 MG, 150ML 150ML u sed. 14:41:01 The HENDERSON-LAD was injected and visualized at various angles. OMNIPAQUE, 350 MG, 150ML 150ML used. 14:41:25 Catheter was removed A JL 5.0 INFINITI CATHETER FR 4 was advanced over a wire. OMNIPAQUE, 350 MG, 150ML 150ML was us ed for 14:41:38 injections. 14:43:09 The LCA was injected and visualized at various angles. OMNIPAQUE, 350 MG, 150ML 150ML used . 14:43:24 HR=97 bpm, TKAQ=588/84 mmhg, SpO2=96.0 %, Resp=23 B/min, Pain=0, Yoav=10, Falk=2 14:44:44 Catheter was removed A AR MOD INFINITI CATHETER FR 4 was advanced over a wire. OMNIPAQUE, 350 MG, 150ML 150ML was us ed for 14:44:51 injections. 14:45:46 The SVG-RCA was injected and visualized at various angles. OMNIPAQUE, 350 MG, 150ML 150ML u sed. 14:48:22 Catheter was removed 14:48:23 HR=95 bpm, OFRL=836/78 mmhg, SpO2=95.0 %, Resp=19 B/min, Pain=0, Yoav=10, Falk=2 A SHEATH, FR6.5 PRELUDE 11CM FR 6.5 was exchanged in the Fem Art (right). This was necessary in order to 14:48:33 accomodate a larger catheter. 14:49:47 Pressure channel 1 zeroed. 14:53:24 HR=95 bpm, CCPK=980/81 mmhg, SpO2=95.0 %, Resp=20 B/min, Pain=0, Yoav=10, Falk=2 14:53:50 8000 units HEPARIN given in lab by Balbir Connell, RN via Peripheral IV. After removing the current catheter a XB 4.0 GUIDE CATHETER FR 6 was advanced over a WIRE, 3MMJ .035 180CM 14:54:55 180CM. 14:55:56 A PRIME WIRE, VERRATA 185CM 185CM was inserted via Fem Art (right). 14:56:31 ACT (Normal Range 90-180) = 175 14:56:48 Flow Wire was was placed in the LAD Ost. The FFR measures ~FFR~ percent. The IFR measures 0 .88 Percent. 14:58:25 HR=96 bpm, KHDN=465/74 mmhg, SpO2=97.0 %, Resp=22 B/min, Pain=0, Yoav=10, Falk=2 An STENT, 4.0 9 INTEGRITY 4.0 9 Bare Metal Stent was inserted through a XB 4.0 GUIDE CATHETER F R 6 over a 15:01:17 PRIME WIRE, VERRATA 185CM 185CM. A STENT, 4.0 9 INTEGRITY 4.0 9 was deployed using a 30 RILEY INDEFLATOR at 16 atmospheres for 15 seconds in the 15:01:44 LAD Ost. 15:03:16 Delivery device removed 15:03:24 HR=95 bpm, XXMB=855/77 mmhg, SpO2=96.0 %, Resp=22 B/min, Pain=0, Yoav=10, Falk=2 15:04:14 Activated Clotting Time Drawn 15:05:13 Flow Wire was was placed in the LAD Prox. The FFR measures ~FFR~ percent. The IFR measures 0.84 Percent. 15:08:23 HR=95 bpm, CNMC=011/80 mmhg, SpO2=97.0 %, Resp=23 B/min, Pain=0, Yoav=10, Falk=2 An STENT, 4.0 18 INTEGRITY 4.0 18 Bare Metal Stent was inserted through a XB 4.0 GUIDE CATHETER FR 6 over a 15:08:29 PRIME WIRE, VERRATA 185CM 185CM. A STENT, 4.0 18 INTEGRITY 4.0 18 was deployed using a 30 RILEY INDEFLATOR at 10 atmospheres for 1 2 seconds in 15:08:41 the LAD Prox. ::29 Delivery device removed 15::18 2000 units HEPARIN given in lab by Balbir Connell RN via Peripheral IV. 15:11:38 Flow Wire was was placed in the LAD Prox. The FFR measures ~FFR~ percent. The IFR measures 0.9 Percent. 15:13:22 HR=94 bpm, DOZH=836/84 mmhg, SpO2=97.0 %, Resp=19 B/min, Pain=0, Yoav=10, Falk=2 15:17:15 Activated Clotting Time Drawn 15:18:27 HR=93 bpm, USYP=057/75 mmhg, SpO2=98.0 %, Resp=23 B/min, Pain=0, Yoav=10, Falk=2 15:18:46 Wire removed 15:18:58 Catheter was removed 15:19:50 A AR 1 GUIDE CATHETER FR 6 was advanced over a wire. OMNIPAQUE, 350 MG, 150ML 150ML was use d for injections. 15:23:02 Flow Wire was was placed in the SVG-RCA. The FFR measures 0.79 percent. The IFR measures 1 Percent. 140 mcg/kg/min ADENOSINE DRIP given in lab by Balbir Connell RN via Peripheral IV. Pump/Drip Sb w = 955.92 ml/hr 15:23:04 using NaCl .9 with a concentration of 90 mg in 90 ml. 15:23:25 2000 units HEPARIN given in lab by Balbir Connell RN via Peripheral IV. 15:23:28 HR=93 bpm, JBTP=250/75 mmhg, SpO2=98.0 %, Resp=17 B/min, Pain=0, Yoav=10, Falk=2 15:28:27 HR=92 bpm, VZUY=032/75 mmhg, SpO2=98.0 %, Resp=18 B/min, Pain=0, Yoav=10, Falk=2 15:33:28 HR=92 bpm, XIPR=383/77 mmhg, SpO2=99.0 %, Resp=20 B/min, Pain=0, Yoav=10, Falk=2 15:36:34 ACT (Normal Range 90-180) = 340 15:38:25 HR=92 bpm, NOOD=473/82 mmhg, SpO2=97 %, Resp=21 B/min, Pain=0, Yoav=10, Falk=2 An STENT, 3.0 9 INTEGRITY 3.0 9 Bare Metal Stent was inserted through a AR 1 GUIDE CATHETER FR 6 over a PRIME 15:39:18 WIRE, VERRATA 185CM 185CM. A STENT, 3.0 9 INTEGRITY 3.0 9 was deployed using a 30 RILEY INDEFLATOR at 10 atmospheres for 15 seconds in the 15:39:53 SVG-RCA. 15:43:17 The PRIME WIRE, VERRATA 185CM 185CM was removed. 15:43:26 HR=94 bpm, IYYX=873/84 mmhg, SpO2=96.0 %, Resp=22 B/min, Pain=0, Yoav=10, Falk=2 15:43:27 Catheter was removed 15:43:38 Case End 15:46:40 40 mg LASIX given in lab by Balbir Connell, RN via Peripheral IV. 15:48:31 HR=94 bpm, LDXR=034/83 mmhg, SpO2=95.0 %, Resp=14 B/min, Pain=0, Yoav=10, Falk=2 15:52:44 600 mg PLAVIX given in lab by Balbir Connell, RN via Oral. 15:53:32 HR=99 bpm, MBZW=950/94 mmhg, SpO2=97.0 %, Resp=27 B/min, Pain=0, Yoav=10, Falk=2 15:58:32 HR=93 bpm, DFGF=105/98 mmhg, SpO2=97.0 %, Resp=10 B/min, Pain=0, Yoav=10, Falk=2 16:03:28 Vitals capture stopped. End Study - Contrast Media Used In Study Contrast Total Opened (mL) Total Used (mL) Total Wasted (mL) Omnipaque 295 295 0 End Study - Maximum Contrast Load Max Contrast Load (mL) 569.1 End Study - Radiation Exposure Fluoro Time (minutes) 17.3 End Study - Patient Disposition Complications Transferred To Interventional Outcome No Telemetry Bed successful
[2017-11-08] MEDS ORDERED: CLOPIDOGREL 300 MG TAB PO ONE (16:45)
--- NOTE | 2017-11-08 17:09 | MA ---
cc: Moe Hassan MD, Hanscy MD DATE: 11/08/2017 PROCEDURE PERFORMED: Right heart catheterization, left heart catheterization, left ventriculography, coronary angiography, saphenous vein angiography, HENDERSON angiography, IFR of the ostial LAD, IFR of the proximal LAD, IFR of the distal LAD and mid-LAD with pullback IFR of the distal and mid-LAD, direct PCI with bare metal stent in the ostial LAD, direct PCI with bare-metal stent in the proximal LAD, FFR of the vein graft to the right coronary artery and direct PCI with bare metal stent of the vein graft to the right coronary artery anastomosis. INDICATIONS: V-tach, wide complex tachycardia, coronary artery disease, decompensated congestive heart failure, congestive heart failure, cardiomyopathy, coronary artery disease, status post CABG, non-STEMI. PROCEDURE: The patient was brought to the cardiac catheterization laboratory, prepped and draped in the usual sterile fashion. 10 mL of 1% lidocaine was used to locally anesthetize the right common femoral artery, a 4-Latvian sheath placed in right common femoral artery, a 5.5-Latvian sheath placed in the right common femoral vein. Right heart catheterization was performed first with the following findings: Pulmonary capillary wedge pressure 29/27-27. PA pressure 60/25-44. RV pressure 62/21-32. RA pressures 18/16-13. By Keith the cardiac output is 5.8 liters per minute. Cardiac index is 2.4 liters per meter2 square per minute. SVR is 1136.9 dynes. Sats on room air: FA sat 96.2%, PA sat 70.4%, RA sat 72.0%. Left heart catheterization was then performed with a 4-Latvian, JR4, JL5 and AR1 modified catheter with the following findings: The LV pressure is 118/4-20. Ejection fraction is 30%. Left ventricle appears to be dilated, at least mild to moderately. The right coronary artery is occluded proximally. The vein graft to first obtuse marginal vessel was widely patent. The marginal vessel has a proximal bifurcation just after the graft insertion site with both branches being about 2.5 mm in diameter with no significant obstructive disease. There is retrograde filling back to the circumflex vessel, which then fills the AV groove, left circumflex and then it fills 2 distal small posterolateral arteries, which are about 0.5 mm in diameter. The HENDERSON to LAD appears atretic in the ostial proximal segment. It is occluded in the proximal mid-segment. The left main coronary artery has no significant disease angiographically. Left circumflex vessel is occluded in the proximal segment. The LAD has an ostial 70% stenosis. It has a long 70% proximal mid-stenosis. The mid-segment has a 50% stenosis at a bifurcation with a small to medium-sized diagonal vessel, which is about 2.25 to 2.5 mm vessel angiographically. The LAD is tortuous in the mid to distal segment with no obvious focal segmental stenosis. It is a transapical vessel supplying the distal inferior apical wall. The initial ACT was 170. 2000 units of heparin was given. Subsequent ACT was 170. Another 2000 units of heparin was given. The next ACT was approximately 170. It was then determined that the IV was functioning properly and that the machine may not be working right. Therefore, we did give another 2000 units of heparin and checked an ACT on a different machine. Final ACT was 340. A 6-Latvian sheath was exchanged for the 4-Latvian sheath. I do think it was medically necessary to do FFR of the LAD and the anastomosis of the vein graft to the right coronary artery given the V-tach, the high risk presentation with cardiomyopathy, ventricular tachycardia refractory to IV amiodarone and high risk for significant morbidity and mortality. Therefore, a 6-Latvian XB 4.0 guide and a 0.014 [place] pressure wire was placed in the aortic root. Note: Pressure waveforms were normalized in the aortic root as the lesion location was in the ostium of the LAD. The introducer was removed. Guide catheter was thoroughly flushed with 20 mL of normal saline. We did a normalization of the pressure waveform. I then advanced the 0.014 [place] pressure wire into the distal LAD. Initial IFR was 0.88. We then placed a 4.0/9 Integrity stent at the ostium of the left anterior descending, one inflation to 16 atmospheres for 20 seconds. Stenosis went from 70% to 0% with NIKO 3 flow. I then did remove the wire. We did a second waveform normalization under normal conditions with flushing of the catheter and removal of the introducer as previously done. IFR remained at 0.88. The proximal LAD did appear to be 70% angiographically. I then placed a 4.0/18 Integrity stent at this lesion site, one inflation 16 of atmospheres for 20 seconds. Stenosis went from 70% to 0% with NIKO 3 flow. We then removed the wire to the third normalization under protocol conditions as previous, advanced the wire into the distal LAD. The IFR was still 0.88, therefore did a pullback across the area of tortuosity in the mid to distal LAD. IFR was then normal at 0.98. There was wire biasing of the very tortuous segment of the mid to distal LAD. I suspect that this was what was creating the gradient. Also, due to the extreme tortuosity of this segment, I did not feel the risk/benefit ratio favored initially stenting this segment and therefore did not perform PCI of the segment. Pullback proximal to this lesion showed an IFR 0.98 suggesting that the mid-LAD at the bifurcation with the diagonal vessel was not hemodynamically significant. The bifurcation of the diagonal vessel was about a 25-degree angle and the diagonal vessel was a medium-sized vessel. Therefore, I did think the risk/benefit ratio favored initially stenting this lesion either. We then turned our attention to the vein graft to the right coronary artery. We used a 6-Latvian AR1 guide, placed a 0.014 [place] pressure wire into the distal graft proximal to the lesion, removed the introducer to 20 mL of normal saline flush, normalized the pressure waveforms, then advanced the 0.014 [place] pressure wire into the makah right coronary artery and right PDA. Initial IFR was 0.98. We did a 3-minute infusion of adenosine at 140 mcg/kg per minute. At about 90 seconds, the FFR dropped to 0.78. Therefore, we proceeded to direct PCI with bare metal stent of the vein graft anastomosis to the right coronary artery with a 3.0/9 Integrity stent, one inflation of 12 atmospheres for 20 seconds. The stenosis went from 70% to 0% with NIKO 3 flow. Note that after the 3 PCIs done, initial pressure was 110 systolic. Final pressure was 145 systolic. The patient's dyspnea improved as well immediately. CONCLUSION: 1. Wide complex tachycardia, thought to be ventricular tachycardia by Dr. Felder, the checker dump grounds. Indeterminate culprit lesions, but the IFR of the ostial left anterior descending was 0.88, IFR of the proximal left anterior descending was 0.88 and FFR of the vein graft to right coronary anastomosis was 0.78. 2. Successful direct percutaneous coronary intervention of the ostial left anterior descending from 70% to 0% with NIKO 3 flow. 3. Successful direct percutaneous coronary intervention with bare metal stent of the proximal left anterior descending from 70% to 0% with NIKO 3 flow. 4. Successful direct percutaneous coronary intervention with bare metal stent of the vein graft to the right coronary artery from 70% to 0% with NIKO 3 flow. 5. Pullback FFR of the mid to distal very tortuous left anterior descending did show normalization of the IFR. Percutaneous coronary intervention deferred due to extreme vessel tortuosity and it appeared that there was significant vessel wire biasing which may have created a false stenosis. There was no IFR gradient of the mid left anterior descending 50% stenosis. 6. Also note that the patient had somewhat atypical anatomy; it was difficult to determine whether the vein graft to the right coronary artery anastomosis appeared to fill a right posterior descending artery and what would anatomically would be the right posterolateral artery. However, this segment, which was the stenotic area, then filled a segment that also bifurcated and appeared to demonstrate a posterior descending artery and posterolateral artery with retrograde filling of what appeared to be the right coronary artery. Note, there was partial obstruction of the questionable posterior descending artery at the vein graft anastomosis, but flow was NIKO 3 and the ostium appeared to be at about 50% stenosis. This was a 1.5-2 mm vessel. 7. Severe left ventricular systolic dysfunction, left ventricular ejection fraction of 30%. 8. Markedly elevated right heart catheterization pressures as detailed above. 9. Elevated left ventricular end-diastolic pressure equal to 20. 10. Severe three-vessel coronary artery disease with 2 of 3 grafts patent and severe stenosis in the vein graft to the right coronary artery, as detailed above. RECOMMENDATIONS: 1. Recommend Plavix 600 mg load, then 75 mg a day for 12-15 months. Aspirin 162 mg daily. Note the final activated clotting time was 340. Also 40 of intravenous Lasix was given at the end of the procedure, due to the markedly elevated right heart catheterization pressures. 2. We will continue telemetry monitoring. 3. Will defer to Dr. Felder further evaluation for arrhythmia and antiarrhythmic therapy. MD GIULIANA Owens/SHANNAN , 04:07 PM , 05:08 PM
[2017-11-08] MEDS ORDERED: IOHEXOL 350 MG/ML 100 ML BTL (for Cath Lab) OTHER ONE (17:18)
[2017-11-08] MEDS: MELATONIN 5 MG TAB PO SCH (20:15)
[2017-11-09] VITALS (32 sets, daily range): BP systolic 98–140; BP diastolic 57–78; PULSE 84–182; RESP 16–41; TEMP 98.4–100.2; O2SAT 93–98
[2017-11-09] MEDS: CHLORHEXIDINE GLUCONATE 2 % 1 PACK (2 CLOTHS) TOP SCH (02:54)
[2017-11-09 05:30] LABS: AUTOMATED NEUTROPHIL # 7.7 TH/MM3 (1.8-7.7); BASOPHIL % 0.5 % (0.0-2.0); EOSINOPHIL % 0.2 % (0.0-4.0); HEMATOCRIT 36.2 % (39.0-51.0); HEMOGLOBIN 12.3 GM/DL (13.0-17.0); LYMPH % 10.3 % (9.0-44.0); MEAN CELL VOLUME 100.2 FL (80.0-100.0); MEAN CORPUSCULAR HGB CONC 33.9 % (32.0-36.0); MEAN PLATELET VOLUME 10.7 FL (7.0-11.0); MONOCYTE # 0.9 TH/MM3 (0-0.9); PLATELET COUNT 129 TH/MM3 (150-450); RED BLOOD COUNT 3.62 MIL/MM3 (4.50-5.90); RED CELL DISTRIBUTION WIDTH 13.2 % (11.6-17.2); WHITE BLOOD COUNT 9.7 TH/MM3 (4.0-11.0)
[2017-11-09] MEDS: SODIUM CHLOR 0.9% 1000 ML INJ 1,000 ML IV SCH (05:46)
[2017-11-09 06:08] LABS: BICARBONATE 28.1 MEQ/L (21.0-32.0); CALCIUM 7.5 MG/DL (8.5-10.1); CHOLESTEROL/ HDL RATIO 4.72 RATIO; CREATININE 1.08 MG/DL (0.60-1.30); HDL CHOLESTEROL 32.2 MG/DL (40.0-60.0)
[2017-11-09] MEDS ORDERED: CARVEDILOL 3.125 MG TAB PO ONE (08:00)
[2017-11-09] MEDS ORDERED: RAMIPRIL 2.5 MG CAP PO ONE (08:00)
[2017-11-09] MEDS: CLOPIDOGREL 75 MG TAB PO SCH (08:48)
[2017-11-09] MEDS: ASPIRIN 81 MG CHEW TAB PO SCH (08:48)
[2017-11-09] MEDS: DOCUSATE SODIUM 50 MG/SENNA 8.6 MG TAB PO SCH ×2 (08:49→21:00)
[2017-11-09] MEDS: SODIUM CHLORIDE 0.9% FLUSH 10 ML FLUSH IV FLUSH SCH ×2 (08:49→21:00)
[2017-11-09] MEDS ORDERED: SPIRONOLACTONE 25 MG TAB PO SCH (09:00)
[2017-11-09] MEDS: ASPIRIN EC 81 MG TABEC PO SCH (09:00)
--- NOTE | 2017-11-09 09:33 | HHI.PR ---
Subjective Remarks 11/07:This is a 57-year-old male who has a history of coronary artery disease status post CABG with a reduced ejection fraction of 30% and an AICD who presents to the emergency department with palpitations that started overnight, constant, severe, associated with some shortness of breath. He denies any chest discomfort. He says his AICD is set to fire at 220. He has never had symptoms like this before. 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 One month ago he was evaluated in our chest pain center and had a normal stress test. He later developed shingles which was the etiology of his pain. Patient was evaluated in the ER at [place]. He received adenosine 12 mg IV with no change in his heart rate. He was diagnosed to be in slow V. tach. Dr. Hassan from cardiology was contacted by ER physician and recommended transferring patient to the [facility] after being initiated on heparin and amiodarone drips. Patient was accepted for admission by critical care medicine service. I evaluated the patient immediately on his arrival to the ICU. At the time of my evaluation patient was resting in bed with a heart rate in the 180s however did not appear to be in any acute distress. He did complain of palpitations however denies any chest pain. He did have minimal shortness of breath at the time. Patient was on heparin and amiodarone drips. Adenosine 12 mg IV push was administered with 12-lead EKG running. Patient had absolutely no change in his heart rate which was at 188 bpm. His ICD was interrogated by ICD rep. It was reading the rhythm as SVT however there was limited data as patient was still in the acute episode per ICD rep. I spoke with Dr. Hassan personally evaluating patient and he recommended attempting Lopressor 5 mg IV for rate control. 11/08: Patient complaining of some shortness of breath and chest discomfort this morning. He had a heart rate of 180s when I was evaluating patient however maintaining his blood pressure. Subsequently he reportedly converted to sinus rhythm when being evaluated by Dr. Rivero. 11-09 patient has been transferred to our service today Had cardiac catheterization yesterday with Dr. Hassan Was seen by Dr. RIVERO Remains on amiodarone drip Discussed with RN and patient Increased activity physical therapy and occupational therapy to eval and treat Try to transfer out of ICU bed is available Objective Vitals Vital Signs Date Time Temp Pulse Resp B/P (MAP) Pulse Ox O2 Delivery O2 Flow Rate FiO2 11/09/17 09:13 96 Nasal Cannula 2.00 11/09/17 09:00 94 22 139/78 (98) 94 11/09/17 08:00 98.8 90 23 140/67 (91) 93 11/09/17 08:00 90 11/09/17 07:00 89 22 116/66 (83) 95 11/09/17 06:00 90 11/09/17 06:00 90 140/65 11/09/17 04:30 93 31 128/67 (87) 94 11/09/17 04:15 92 23 114/57 (76) 95 11/09/17 04:00 98.8 91 18 137/69 (91) 95 11/09/17 04:00 91 11/09/17 03:45 91 33 122/65 (84) 95 11/09/17 03:30 92 34 127/68 (87) 96 11/09/17 03:15 92 21 137/64 (88) 95 11/09/17 03:00 93 25 127/65 (85) 97 11/09/17 02:45 94 23 126/67 (86) 97 11/09/17 02:30 91 32 126/70 (88) 98 11/09/17 02:16 91 25 127/66 (86) 95 11/09/17 02:00 91 11/09/17 02:00 91 30 126/59 (81) 96 11/09/17 01:46 101 41 126/65 (85) 97 11/09/17 01:30 92 18 127/64 (85) 96 11/09/17 01:15 92 18 129/65 (86) 95 11/09/17 01:00 93 18 138/67 (90) 95 11/09/17 00:30 93 17 121/64 (83) 95 11/09/17 00:15 93 19 113/61 (78) 95 11/09/17 00:00 94 11/09/17 00:00 98.6 94 20 111/59 (76) 94 11/08/17 23:45 96 18 124/62 (82) 94 11/08/17 23:30 95 17 124/57 (79) 94 11/08/17 23:15 96 17 134/67 (89) 94 11/08/17 23:00 96 28 119/62 (81) 95 11/08/17 22:45 97 20 126/60 (82) 94 11/08/17 22:30 96 26 115/58 (77) 95 11/08/17 22:15 97 24 124/62 (82) 93 11/08/17 22:00 97 23 113/59 (77) 94 11/08/17 22:00 97 11/08/17 21:30 100 20 127/62 (83) 93 11/08/17 21:15 100 20 121/55 (77) 94 11/08/17 21:00 99 21 125/61 (82) 93 11/08/17 20:55 99 21 Arterial Line 93 11/08/17 20:45 98 22 122/59 (80) 94 11/08/17 20:45 98 22 122/59 (80) 94 Arterial Line 11/08/17 20:40 99 22 Arterial Line 93 11/08/17 20:30 98 22 123/55 (77) 94 Arterial Line 11/08/17 20:30 98 22 123/55 (77) 94 11/08/17 20:25 98 25 Arterial Line 93 11/08/17 20:16 99 129/60 11/08/17 20:15 100 20 129/60 (83) 95 11/08/17 20:15 100 20 129/60 (83) 95 Arterial Line 11/08/17 20:10 101 24 Arterial Line 91 11/08/17 20:00 98.1 97 26 128/65 (86) 94 Arterial Line 11/08/17 20:00 97 11/08/17 20:00 98.1 97 26 128/65 (86) 94 11/08/17 19:55 98 21 127/66 (86) 93 11/08/17 19:55 98 21 127/66 (86) 93 Arterial Line 11/08/17 19:50 97 17 131/70 (90) 93 11/08/17 19:50 97 17 131/70 (90) 93 Arterial Line 11/08/17 19:45 99 22 131/66 (87) 92 Arterial Line 11/08/17 19:45 99 22 131/66 (87) 92 11/08/17 19:40 99 21 131/64 (86) 92 119/60 (79) 11/08/17 19:40 99 21 131/64 (86) 92 119/60 (79) 11/08/17 19:35 99 25 125/60 (81) 92 121/60 (80) 11/08/17 19:35 99 25 125/60 (81) 92 121/60 (80) 11/08/17 19:30 100 23 123/59 (80) 94 125/54 (77) 11/08/17 19:30 100 23 123/59 (80) 94 125/54 (77) 11/08/17 19:25 99 23 119/59 (79) 93 11/08/17 19:15 100 23 114/60 (78) 93 118/60 (79) 11/08/17 19:15 100 23 114/60 (78) 93 118/60 (79) 11/08/17 19:10 101 21 119/62 (81) 93 11/08/17 19:00 100 21 119/56 (77) 93 115/61 (79) 11/08/17 19:00 100 21 119/56 (77) 93 115/61 (79) 11/08/17 19:00 100 119/56 11/08/17 18:55 101 20 116/62 (80) 94 11/08/17 18:45 100 21 126/60 (82) 94 117/61 (79) 11/08/17 18:15 101 23 133/68 (89) 93 126/65 (85) 11/08/17 18:00 99 11/08/17 17:45 98 22 125/60 (81) 94 115/62 (79) 11/08/17 17:15 101 27 134/72 (92) 95 134/70 (91) 11/08/17 17:00 101 26 138/70 (92) 95 138/72 (94) 11/08/17 16:45 102 28 152/74 (100) 94 149/77 (101) 11/08/17 16:30 99.3 103 20 165/85 (111) 100 11/08/17 16:30 98.3 103 20 165/85 (111) 94 11/08/17 16:30 103 11/08/17 12:00 94 11/08/17 12:00 97.5 94 31 147/93 (111) 96 11/08/17 11:47 98 Nasal Cannula 2.00 11/08/17 10:00 92 I/O 11/08/17 11/08/17 11/08/17 11/09/17 11/09/17 11/09/17 07:00 15:00 23:00 07:00 15:00 23:00 Intake Total 1108 ml 1250 ml 1608 ml Output Total 350 ml 2100 ml 800 ml Balance 758 ml -850 ml 808 ml Intake Oral 500 ml IV Total 1108 ml 1250 ml 1108 ml Output Urine Total 350 ml 2100 ml 800 ml # Voids 5 # Bowel Movements 0 0 Result Diagram: 11/09/17 0322 11/09/17 0322 Other Results Laboratory Tests Test 11/07/17 10:30 11/07/17 15:11 11/07/17 21:32 11/08/17 03:20 Nasal Screen MRSA (PCR) MRSA NOT DETECTED White Blood Count 12.4 TH/MM3 14.8 TH/MM3 Red Blood Count 4.42 MIL/MM3 4.42 MIL/MM3 Hemoglobin 14.9 GM/DL 14.7 GM/DL Hematocrit 44.1 % 43.8 % Mean Corpuscular Volume 99.8 FL 99.2 FL Mean Corpuscular Hemoglobin 33.7 PG 33.3 PG Mean Corpuscular Hemoglobin Concent 33.7 % 33.6 % Red Cell Distribution Width 13.8 % 13.7 % Platelet Count 178 TH/MM3 176 TH/MM3 Mean Platelet Volume 10.2 FL 10.6 FL Activated Partial Thromboplast Time 31.4 SEC 32.1 SEC 34.3 SEC Troponin I 0.26 NG/ML 0.27 NG/ML Neutrophils (%) (Auto) 75.9 % Lymphocytes (%) (Auto) 14.8 % Monocytes (%) (Auto) 8.8 % Eosinophils (%) (Auto) 0.1 % Basophils (%) (Auto) 0.4 % Neutrophils # (Auto) 11.2 TH/MM3 Lymphocytes # (Auto) 2.2 TH/MM3 Monocytes # (Auto) 1.3 TH/MM3 Eosinophils # (Auto) 0.0 TH/MM3 Basophils # (Auto) 0.1 TH/MM3 CBC Comment DIFF FINAL Differential Comment Blood Urea Nitrogen 17 MG/DL Creatinine 1.02 MG/DL Random Glucose 141 MG/DL Total Protein 7.3 GM/DL Albumin 3.3 GM/DL Calcium Level 7.7 MG/DL Phosphorus Level 3.1 MG/DL Magnesium Level 1.7 MG/DL Alkaline Phosphatase 59 U/L Aspartate Amino Transf (AST/SGOT) 51 U/L Alanine Aminotransferase (ALT/SGPT) 80 U/L Total Bilirubin 0.7 MG/DL Sodium Level 141 MEQ/L Potassium Level 4.6 MEQ/L Chloride Level 108 MEQ/L Carbon Dioxide Level 19.7 MEQ/L Anion Gap 13 MEQ/L Estimat Glomerular Filtration Rate 76 ML/MIN B-Type Natriuretic Peptide 483 PG/ML Triglycerides Level 320 MG/DL Cholesterol Level 218 MG/DL LDL Cholesterol 116 MG/DL HDL Cholesterol 38.0 MG/DL Cholesterol/HDL Ratio 5.73 RATIO Test 11/08/17 09:45 11/08/17 16:52 11/09/17 03:22 Activated Partial Thromboplast Time 36.4 SEC 133.3 SEC White Blood Count 9.7 TH/MM3 Red Blood Count 3.62 MIL/MM3 Hemoglobin 12.3 GM/DL Hematocrit 36.2 % Mean Corpuscular Volume 100.2 FL Mean Corpuscular Hemoglobin 34.0 PG Mean Corpuscular Hemoglobin Concent 33.9 % Red Cell Distribution Width 13.2 % Platelet Count 129 TH/MM3 Mean Platelet Volume 10.7 FL Neutrophils (%) (Auto) 80.0 % Lymphocytes (%) (Auto) 10.3 % Monocytes (%) (Auto) 9.0 % Eosinophils (%) (Auto) 0.2 % Basophils (%) (Auto) 0.5 % Neutrophils # (Auto) 7.7 TH/MM3 Lymphocytes # (Auto) 1.0 TH/MM3 Monocytes # (Auto) 0.9 TH/MM3 Eosinophils # (Auto) 0.0 TH/MM3 Basophils # (Auto) 0.0 TH/MM3 CBC Comment DIFF FINAL Differential Comment Blood Urea Nitrogen 18 MG/DL Creatinine 1.08 MG/DL Random Glucose 110 MG/DL Calcium Level 7.5 MG/DL Sodium Level 140 MEQ/L Potassium Level 3.5 MEQ/L Chloride Level 104 MEQ/L Carbon Dioxide Level 28.1 MEQ/L Anion Gap 8 MEQ/L Estimat Glomerular Filtration Rate 71 ML/MIN Total Creatine Kinase 271 U/L B-Type Natriuretic Peptide 195 PG/ML Triglycerides Level 160 MG/DL Cholesterol Level 152 MG/DL LDL Cholesterol 88 MG/DL HDL Cholesterol 32.2 MG/DL Cholesterol/HDL Ratio 4.72 RATIO Objective Remarks GENERAL: Awake alert and oriented 3 talkative and cooperative SKIN: Warm and dry. HEAD: Atraumatic. Normocephalic. EYES: Pupils equal and round. No scleral icterus. No injection or drainage. Extraocular muscles intact ENT: No nasal bleeding or discharge. Mucous membranes pink and moist. Tongue is midline NECK: Trachea midline. No JVD. Supple CARDIOVASCULAR: IRRegular rate and rhythm. S1-S2 no S3 or S4 RESPIRATORY: No accessory muscle use. Clear to auscultation. Breath sounds equal bilaterally. GASTROINTESTINAL: Abdomen soft, non-tender, nondistended. Hepatic and splenic margins not palpable. MUSCULOSKELETAL: Extremities without clubbing, cyanosis, or edema. No obvious deformities. Right groin catheterization site is stable NEUROLOGICAL: Awake and alert. No obvious cranial nerve deficits. Motor grossly within normal limits. Five out of 5 muscle strength in the arms and legs. Normal speech. PSYCHIATRIC: Appropriate mood and affect; insight and judgment normal. Procedures 11/08/2017 PROCEDURE PERFORMED: Right heart catheterization, left heart catheterization, left ventriculography, coronary angiography, saphenous vein angiography, HENDERSON angiography, IFR of the ostial LAD, IFR of the proximal LAD, IFR of the distal LAD and mid-LAD with pullback IFR of the distal and mid-LAD, direct PCI with bare metal stent in the ostial LAD, direct PCI with bare-metal stent in the proximal LAD, FFR of the vein graft to the right coronary artery and direct PCI with bare metal stent of the vein graft to the right coronary artery anastomosis. INDICATIONS: V-tach, wide complex tachycardia, coronary artery disease, decompensated congestive heart failure, congestive heart failure, cardiomyopathy, coronary artery disease, status post CABG, non-STEMI. PROCEDURE: The patient was brought to the cardiac catheterization laboratory, prepped and draped in the usual sterile fashion. 10 mL of 1% lidocaine was used to locally anesthetize the right common femoral artery, a 4-[place] sheath placed in right common femoral artery, a 5.5-[place] sheath placed in the right common femoral vein. Right heart catheterization was performed first with the following findings: Pulmonary capillary wedge pressure 29/27-27. PA pressure 60/25-44. RV pressure 62/21-32. RA pressures 18/16-13. By Keith the cardiac output is 5.8 liters per minute. Cardiac index is 2.4 liters per meter2 square per minute. SVR is 1136.9 dynes. Sats on room air: FA sat 96.2%, PA sat 70.4%, RA sat 72.0%. Left heart catheterization was then performed with a 4-[place], JR4, JL5 and AR1 modified catheter with the following findings: The LV pressure is 118/4-20. Ejection fraction is 30%. Left ventricle appears to be dilated, at least mild to moderately. The right coronary artery is occluded proximally. The vein graft to first obtuse marginal vessel was widely patent. The marginal vessel has a proximal bifurcation just after the graft insertion site with both branches being about 2.5 mm in diameter with no significant obstructive disease. There is retrograde filling back to the circumflex vessel, which then fills the AV groove, left circumflex and then it fills 2 distal small posterolateral arteries, which are about 0.5 mm in diameter. The HENDERSON to LAD appears atretic in the ostial proximal segment. It is occluded in the proximal mid-segment. The left main coronary artery has no significant disease angiographically. Left circumflex vessel is occluded in the proximal segment. The LAD has an ostial 70% stenosis. It has a long 70% proximal mid-stenosis. The mid-segment has a 50% stenosis at a bifurcation with a small to medium-sized diagonal vessel, which is about 2.25 to 2.5 mm vessel angiographically. The LAD is tortuous in the mid to distal segment with no obvious focal segmental stenosis. It is a transapical vessel supplying the distal inferior apical wall. The initial ACT was 170. 2000 units of heparin was given. Subsequent ACT was 170. Another 2000 units of heparin was given. The next ACT was approximately 170. It was then determined that the IV was functioning properly and that the machine may not be working right. Therefore, we did give another 2000 units of heparin and checked an ACT on a different machine. Final ACT was 340. A 6-[place] sheath was exchanged for the 4-[place] sheath. I do think it was medically necessary to do FFR of the LAD and the anastomosis of the vein graft to the right coronary artery given the V-tach, the high risk presentation with cardiomyopathy, ventricular tachycardia refractory to IV amiodarone and high risk for significant morbidity and mortality. Therefore, a 6-[place] XB 4.0 guide and a 0.014 [place] pressure wire was placed in the aortic root. Note: Pressure waveforms were normalized in the aortic root as the lesion location was in the ostium of the LAD. The introducer was removed. Guide catheter was thoroughly flushed with 20 mL of normal saline. We did a normalization of the pressure waveform. I then advanced the 0.014 [place] pressure wire into the distal LAD. Initial IFR was 0.88. We then placed a 4.0/9 Integrity stent at the ostium of the left anterior descending, one inflation to 16 atmospheres for 20 seconds. Stenosis went from 70% to 0% with NIKO 3 flow. I then did remove the wire. We did a second waveform normalization under normal conditions with flushing of the catheter and removal of the introducer as previously done. IFR remained at 0.88. The proximal LAD did appear to be 70% angiographically. I then placed a 4.0/18 Integrity stent at this lesion site, one inflation 16 of atmospheres for 20 seconds. Stenosis went from 70% to 0% with NIKO 3 flow. We then removed the wire to the third normalization under protocol conditions as previous, advanced the wire into the distal LAD. The IFR was still 0.88, therefore did a pullback across the area of tortuosity in the mid to distal LAD. IFR was then normal at 0.98. There was wire biasing of the very tortuous segment of the mid to distal LAD. I suspect that this was what was creating the gradient. Also, due to the extreme tortuosity of this segment, I did not feel the risk/benefit ratio favored initially stenting this segment and therefore did not perform PCI of the segment. Pullback proximal to this lesion showed an IFR 0.98 suggesting that the mid-LAD at the bifurcation with the diagonal vessel was not hemodynamically significant. The bifurcation of the diagonal vessel was about a 25-degree angle and the diagonal vessel was a medium-sized vessel. Therefore, I did think the risk/benefit ratio favored initially stenting this lesion either. We then turned our attention to the vein graft to the right coronary artery. We used a 6-[place] AR1 guide, placed a 0.014 [place] pressure wire into the distal graft proximal to the lesion, removed the introducer to 20 mL of normal saline flush, normalized the pressure waveforms, then advanced the 0.014 [place] pressure wire into the [place] right coronary artery and right PDA. Initial IFR was 0.98. We did a 3-minute infusion of adenosine at 140 mcg/kg per minute. At about 90 seconds, the FFR dropped to 0.78. Therefore, we proceeded to direct PCI with bare metal stent of the vein graft anastomosis to the right coronary artery with a 3.0/9 Integrity stent, one inflation of 12 atmospheres for 20 seconds. The stenosis went from 70% to 0% with NIKO 3 flow. Note that after the 3 PCIs done, initial pressure was 110 systolic. Final pressure was 145 systolic. The patient's dyspnea improved as well immediately. CONCLUSION: 1. Wide complex tachycardia, thought to be ventricular tachycardia by Dr. Rivero, the case consultant. Indeterminate culprit lesions, but the IFR of the ostial left anterior descending was 0.88, IFR of the proximal left anterior descending was 0.88 and FFR of the vein graft to right coronary anastomosis was 0.78. 2. Successful direct percutaneous coronary intervention of the ostial left anterior descending from 70% to 0% with NIKO 3 flow. 3. Successful direct percutaneous coronary intervention with bare metal stent of the proximal left anterior descending from 70% to 0% with NIKO 3 flow. 4. Successful direct percutaneous coronary intervention with bare metal stent of the vein graft to the right coronary artery from 70% to 0% with NIKO 3 flow. 5. Pullback FFR of the mid to distal very tortuous left anterior descending did show normalization of the IFR. Percutaneous coronary intervention deferred due to extreme vessel tortuosity and it appeared that there was significant vessel wire biasing which may have created a false stenosis. There was no IFR gradient of the mid left anterior descending 50% stenosis. 6. Also note that the patient had somewhat atypical anatomy; it was difficult to determine whether the vein graft to the right coronary artery anastomosis appeared to fill a right posterior descending artery and what would anatomically would be the right posterolateral artery. However, this segment, which was the stenotic area, then filled a segment that also bifurcated and appeared to demonstrate a posterior descending artery and posterolateral artery with retrograde filling of what appeared to be the right coronary artery. Note, there was partial obstruction of the questionable posterior descending artery at the vein graft anastomosis, but flow was NIKO 3 and the ostium appeared to be at about 50% stenosis. This was a 1.5-2 mm vessel. 7. Severe left ventricular systolic dysfunction, left ventricular ejection fraction of 30%. 8. Markedly elevated right heart catheterization pressures as detailed above. 9. Elevated left ventricular end-diastolic pressure equal to 20. 10. Severe three-vessel coronary artery disease with 2 of 3 grafts patent and severe stenosis in the vein graft to the right coronary artery, as detailed above. RECOMMENDATIONS: 1. Recommend Plavix 600 mg load, then 75 mg a day for 12-15 months. Aspirin 162 mg daily. Note the final activated clotting time was 340. Also 40 of intravenous Lasix was given at the end of the procedure, due to the markedly elevated right heart catheterization pressures. 2. We will continue telemetry monitoring. 3. Will defer to Dr. Rivero further evaluation for arrhythmia and antiarrhythmic therapy. Moe Hassan MD Medications and IVs Current Medications Adenosine (Adenocard Inj) 12 mg STK-MED ONCE .ROUTE Last administered on at 10:12; Start 11/07/17 at 10:06; Stop 11/07/17 at 10:07; Status DC Sodium Chloride 1,000 ml @ 84 mls/hr [id number] IV Last administered on at 05:46; Start 11/07/17 at 10:10 Sodium Chloride (NS Flush) 2 ml UNSCH PRN IV FLUSH FLUSH AFTER USING IV ACCESS Last administered on 11/09/17at 08:49; Start 11/07/17 at 10:15 Sodium Chloride (NS Flush) 2 ml BID IV FLUSH Last administered on 11/08/17at 08: 02; Start 11/07/17 at 21:00; Stop 11/08/17 at 16:32; Status DC Acetaminophen (Tylenol) 650 mg Q6H PRN PO PAIN 1-10 AND/OR FEVER >101F; Start 11/07/17 at 10:15 Ondansetron HCl (Zofran Odt) 4 mg Q6H PRN PO NAUSEA OR VOMITING; Start at 10:15 Metoclopramide HCl (Reglan Inj) 10 mg Q6H PRN IV PUSH NAUSEA OR VOMITING; Start 11/07/17 at 10:15 Albuterol/ Ipratropium (Duoneb Neb) 1 ampule Q2HR NEB PRN INH WHEEZING; Start 11/07/17 at 10:15 Miscellaneous Information ([facility]) 1 [id number] Last administered on 11/07/17at 10:15; Start 11/07/17 at 10:15 Chlorhexidine Gluconate (Chlorhexidine 2% Cloth) 3 pack Taper DAILY@04 TOP Last administered on 11/09/17at 02:54; Start 11/08/17 at 04:00; Stop 11/04/18 at 03:59 Chlorhexidine Gluconate (Chlorhexidine 2% Cloth) 3 pack UNSCH PRN TOP HYGIENIC CARE; Start 11/07/17 at 10:15 Senna/Docusate Sodium (Amna-Colace) 1 tab BID PO ; Start 11/07/17 at 21:00 Magnesium Hydroxide (Milk Of Magnesia Liq) 30 ml Q12H PRN PO Mild constipation ; Start 11/07/17 at 10:15 Sennosides (Senokot) 17.2 mg Q12H PRN PO Moderate constipation; Start 11/07/17 at 10:15 Bisacodyl (Dulcolax Supp) 10 mg DAILY PRN RECTAL SEVERE CONSITIPATION; Start at 10:15 Lactulose (Lactulose Liq) 30 ml DAILY PRN PO SEVERE CONSITIPATION; Start at 10:15 Metoprolol Tartrate (Lopressor Inj) 5 mg ONCE ONCE IV PUSH Last administered on 11/07/17at 11:12; Start 11/07/17 at 10:45; Stop 11/07/17 at 10:53; Status DC Amiodarone HCl 450 mg/Dextrose 250 ml @ 16.66 mls/ hr Q15H1M PRN IV Per Protocol; Start 11/07/17 at 14:58; Status UNV Heparin Sodium/ Dextrose 250 ml @ 0 mls/hr TITRATE PRN IV Coagulation Management; Start 11/07/17 at 15:00; Status UNV Amiodarone HCl 450 mg/Dextrose 250 ml @ 16.66 mls/ hr TITRATE PRN IV Per Protocol; Start 11/07/17 at 15:00; Status Cancel Heparin Sodium/ Dextrose 250 ml @ 10 mls/hr TITRATE PRN IV Ordered parameters Last administered on 11/08/17at 06:22; Start 11/07/17 at 15:15 Amiodarone HCl 450 mg/Sodium Chloride 250 ml @ 16.66 mls/ hr TITRATE PRN IV Per Protocol Last administered on 11/08/17at 20:16; Start 11/07/17 at 15:15 Aspirin (Ecotrin Ec) 81 mg ONCE ONCE PO Last administered on 11/07/17at 20:19; Start 11/07/17 at 20:00; Stop 11/07/17 at 20:12; Status DC Aspirin (Ecotrin Ec) 81 mg DAILY PO Last administered on 11/08/17at 08:02; Start 11/08/17 at 09:00 Melatonin (Melatonin) 5 mg HS PO Last administered on 11/08/17at 20:15; Start at 22:00 Morphine Sulfate (Morphine Inj) 2 mg Q4H PRN IV PUSH pain 8-10 or not taking po Last administered on 11/08/17at 21:46; Start 11/08/17 at 02:45 Promethazine HCl (Phenergan Inj) 12.5 mg ONCE ONCE IM Last administered on at 08:02; Start 11/08/17 at 05:45; Stop 11/08/17 at 05:46; Status DC Isoproterenol HCl 0 ml @ As Directed STK-MED ONCE IV ; Start 11/08/17 at 12:11; Stop 11/08/17 at 12:12; Status DC Heparin Sodium/ Sodium Chloride 0 ml @ As Directed STK-MED ONCE .ROUTE ; Start 11/08/17 at 12:11; Stop 11/08/17 at 12:12; Status DC Protamine Sulfate (Protamine Sulfate Inj) 50 mg STK-MED ONCE .ROUTE ; Start at 12:12; Stop 11/08/17 at 12:13; Status DC Heparin Sodium/ Dextrose 0 ml @ As Directed STK-MED ONCE .ROUTE ; Start at 12:13; Stop 11/08/17 at 12:14; Status DC Heparin Sodium/ Sodium Chloride 1,500 ml @ As Directed STK-MED ONCE .ROUTE ; Start 11/08/17 at 14:00; Stop 11/08/17 at 14:01; Status DC Midazolam HCl (Versed Inj) 2 mg STK-MED ONCE .ROUTE Last administered on at 14:24; Start 11/08/17 at 14:01; Stop 11/08/17 at 14:02; Status DC Fentanyl Citrate (fentaNYL INJ) 100 mcg STK-MED ONCE .ROUTE Last administered on 11/08/17 14:25; Start 11/08/17 at 14:01; Stop 11/08/17 at 14:02; Status DC Adenosine (Adenoscan Inj) 90 mg STK-MED ONCE .ROUTE Last administered on at 15:30; Start 11/08/17 at 14:55; Stop 11/08/17 at 14:56; Status DC Furosemide (Lasix Inj) 40 mg STK-MED ONCE .ROUTE Last administered on at 15:46; Start 11/08/17 at 15:43; Stop 11/08/17 at 15:44; Status DC Clopidogrel Bisulfate (Plavix) 600 mg STK-MED ONCE .ROUTE ; Start 11/08/17 at 15 :48; Stop 11/08/17 at 15:49; Status DC Heparin Sodium (Porcine) (Heparin Inj) 20,000 units STK-MED ONCE .ROUTE Last administered on 11/08/17at 14:53; Start 11/08/17 at 15:58; Stop 11/08/17 at 15:59 ; Status DC Sodium Chloride (NS Flush) 2 ml UNSCH PRN IV FLUSH FLUSH AFTER USING IV ACCESS Last administered on 11/09/17at 08:49; Start 11/08/17 at 16:15 Sodium Chloride (NS Flush) 2 ml BID IV FLUSH Last administered on 11/09/17at 08: 49; Start 11/08/17 at 21:00 Aspirin (Aspirin Chew) 162 mg DAILY PO Last administered on 11/09/17at 08:48; Start 11/09/17 at 09:00 Clopidogrel Bisulfate (Plavix) 600 mg ONCE ONCE PO ; Start 11/08/17 at 16:45; Stop 11/08/17 at 16:46; Status DC Clopidogrel Bisulfate (Plavix) 75 mg DAILY PO Last administered on 11/09/17at 08 :48; Start 11/09/17 at 09:00 Miscellaneous Information 1 ONCE ONCE XX ; Start 11/08/17 at 16:15; Stop at 16:31; Status DC Iohexol (OMNIPAQUE 350 INJ ([employer])) 100 ml STK-MED ONCE OTHER ; Start at 17:18; Stop 11/08/17 at 17:19; Status DC Spironolactone (Aldactone) 25 mg DAILY PO ; Start 11/09/17 at 09:00; Status UNV Spironolactone (Aldactone) 25 mg BID@18 PO ; Start 11/09/17 at 09:00; Status UNV Ramipril (Altace) 2.5 mg ONCE ONCE PO Last administered on 11/09/17at 08:48; Start 11/09/17 at 08:00; Stop 11/09/17 at 08:01; Status DC Ramipril (Altace) 2.5 mg DAILY PO ; Start 11/10/17 at 09:00 Carvedilol (Coreg) 3.125 mg ONCE ONCE PO Last administered on 11/09/17at 08:48 ; Start 11/09/17 at 08:00; Stop 11/09/17 at 08:01; Status DC Carvedilol (Coreg) 3.125 mg Q12HR PO ; Start 11/09/17 at 21:00 A/P Assessment and Plan Assessment and Plan 57-year-old male with : Tachyarrhythmia: SVT versus slow V. tach CAD Ischemic cardiomyopathy History of A. fib History of CABG/Maze procedure History of ICD placement Status post cardiac catheterization was bare-metal stent to the LAD and saphenous vein graft Plan: Neuro: Follow neuro status. avoid sedatives and narcotics. Cardiovascular: Started on heparin for anticoagulation and amiodarone gtt. following bolus. Did not respond with adenosine 12 mg IV with absolutely no change in heart rate raising concern for accessory pathway SVT versus slow V. tach. Discussed with Dr. Moe Hassan from cardiology. EP consulted per Dr. Hassan. Patient reportedly converted to sinus rhythm and Dr. Hassan is planning cardiac catheterization. Remains on amiodarone drip Pulmonary: Supplemental O2. GI/liver: Continue cardiac diet Renal/: IV hydration, strict intake output, monitor and replete electrolytes, follow BUN/creatinine. ID: No indication for antibiotics at this time. Heme: On anticoagulation with heparin. Endocrine: Watch for hyperglycemia, SSI for glycemic control if needed Prophylaxis: On heparin for full anticoagulation. No indication for GI prophylaxis at this time. Is being followed by Dr. RIVERO Further recommendations per Dr. Moe Hassan. Discussed current clinical status with patient and updated regarding plan of care and he voiced understanding and was agreeable. Patient will be transferred to hospitalist service for further medical management as he has converted out of this tachyarrhythmia. Discharge Planning PENDING CARDIAC CLEARANCE Tramaine Mensah DO November 09, 2017 09:33
[2017-11-09] MEDS: AMIODARONE INJ 450 MG in SODIUM CHLOR 0.9% 250 ML INJ 241 ML IV PRN (12:52)
--- NOTE | 2017-11-09 13:56 | EKG ---
Date Performed: 11/09/2017 Time Performed: 07:41:20 PTAGE: 57 years EKG: Sinus rhythm BORDERLINE RIGHT AXIS DEVIATION INTRAVENTRICULAR CONDUCTION DELAY POSSIBLE INFERIOR MYOCARDIAL INFAR CTION , OF INDETERMINATE AGE ABNORMAL ECG PREVIOUS TRACING : 11/08/2017 17.00 DOCTOR: Sukhwinder Eldridge Interpretating Date/Time 11/09/2017 13:53:33
[2017-11-09] MEDS: ACETAMINOPHEN 325 MG TAB PO PRN (13:58)
--- NOTE | 2017-11-09 14:13 | EKG ---
Date Performed: 11/08/2017 Time Performed: 17:00:31 PTAGE: 57 years EKG: SINUS TACHYCARDIA WITH OCCASIONAL SUPRAVENTRICULAR PREMATURE COMPLEXES BORDERLINE RIGHT AXI S DEVIATION INTRAVENTRICULAR CONDUCTION DELAY ABNORMAL ECG PREVIOUS TRACING : 11/08/2017 09.42 DOCTOR: Sukhwinder Eldridge Interpretating Date/Time 11/09/2017 14:11:53
[2017-11-09] MEDS ORDERED: HEPARIN SODIUM - IV 10,000 UNITS/10 ML VIAL IV PUSH PRN ×2 (14:45)
[2017-11-09] MEDS ORDERED: HEPARIN 25,000 UNITS-D5W 250 ML - PREMIX IV PRN (15:00)
[2017-11-09] MEDS ORDERED: HEPARIN SODIUM - IV 10,000 UNITS/10 ML VIAL IV ONE (15:00)
[2017-11-09] MEDS ORDERED: LIDOCAINE HCL 2% 100 MG/5 ML SYRINGE IV PUSH ONE (15:15)
[2017-11-09] MEDS ORDERED: MIDAZOLAM HCL 2 MG/2 ML VIAL IV PUSH ONE (15:41)
[2017-11-09] MEDS ORDERED: MIDAZOLAM HCL 5 MG/ML VIAL (1 ML) ONE (15:49)
[2017-11-09] MEDS ORDERED: LIDOCAINE/D5W 2000 MG/500 ML 500 ML IV SCH (16:45)
--- NOTE | 2017-11-09 19:24 | PD.CARD.PN ---
Subjective Subjective Remarks diaphoretic, c/p palpitations, dyspnea, wct @ 180 bpm on monitor Objective Medications Current Medications Medications (Trade) Dose Ordered Sig/Janneth Route Start Time Stop Time Status Last Admin Sodium Chloride 1,000 ml @ 84 mls/hr [id number] IV 11/07/17 10:10 11/09/17 05:46 (NS Flush) 2 ml UNSCH PRN IV FLUSH 11/07/17 10:15 11/09/17 08:49 (Tylenol) 650 mg Q6H PRN PO 11/07/17 10:15 11/09/17 13:58 (Zofran Odt) 4 mg Q6H PRN PO 11/07/17 10:15 (Reglan Inj) 10 mg Q6H PRN IV PUSH 11/07/17 10:15 (Duoneb Neb) 1 ampule Q2HR NEB PRN INH 11/07/17 10:15 ([facility]) 1 [id number] XX 11/07/17 10:15 11/07/17 10:15 (Chlorhexidine 2% Cloth) 3 pack Taper DAILY@04 TOP 11/08/17 04:00 11/04/18 03:59 11/09/17 02:54 (Chlorhexidine 2% Cloth) 3 pack UNSCH PRN TOP 11/07/17 10:15 (Amna-Colace) 1 tab BID PO 11/07/17 21:00 (Milk Of Magnesia Liq) 30 ml Q12H PRN PO 11/07/17 10:15 (Senokot) 17.2 mg Q12H PRN PO 11/07/17 10:15 (Dulcolax Supp) 10 mg DAILY PRN RECTAL 11/07/17 10:15 (Lactulose Liq) 30 ml DAILY PRN PO 11/07/17 10:15 Amiodarone HCl 450 mg/Sodium Chloride 250 ml @ 16.66 mls/ hr TITRATE PRN IV 11/07/17 15:15 11/09/17 12:52 (Melatonin) 5 mg HS PO 11/07/17 22:00 11/08/17 20:15 (Morphine Inj) 2 mg Q4H PRN IV PUSH 11/08/17 02:45 11/08/17 21:46 (NS Flush) 2 ml UNSCH PRN IV FLUSH 11/08/17 16:15 11/09/17 08:49 (NS Flush) 2 ml BID IV FLUSH 11/08/17 21:00 11/09/17 08:49 (Aspirin Chew) 162 mg DAILY PO 11/09/17 09:00 11/09/17 08:48 (Plavix) 75 mg DAILY PO 11/09/17 09:00 11/09/17 08:48 (Aldactone) 25 mg DAILY PO 11/09/17 09:00 UNV (Aldactone) 25 mg BID@09,18 PO 11/09/17 09:00 UNV (Altace) 2.5 mg DAILY PO 11/10/17 09:00 Heparin Sodium/ Dextrose 250 ml @ 18 mls/hr TITRATE PRN IV 11/09/17 15:00 11/09/17 14:51 (Heparin Inj) 5,000 units UNSCH PRN IV PUSH 11/09/17 14:45 (Heparin Inj) 2,500 units UNSCH PRN IV PUSH 11/09/17 14:45 Lidocaine HCl/ Dextrose 500 ml @ 30 mls/hr [id number] IV 11/09/17 16:45 11/09/17 18:01 Vital Signs / I&O Vital Signs Date Time Temp Pulse Resp B/P (MAP) Pulse Ox O2 Delivery O2 Flow Rate FiO2 11/09/17 18:01 86 127/88 11/09/17 17:01 87 11/09/17 16:01 100.2 173 20 98/71 (80) 95 11/09/17 16:00 94 11/09/17 16:00 93 4.00 11/09/17 15:00 182 11/09/17 14:00 178 11/09/17 13:00 84 11/09/17 12:52 82 136/76 11/09/17 12:01 98.4 84 18 138/76 (96) 94 11/09/17 12:00 86 11/09/17 09:13 96 Nasal Cannula 2.00 11/09/17 09:00 94 22 139/78 (98) 94 11/09/17 08:00 98.8 90 23 140/67 (91) 93 11/09/17 08:00 90 11/09/17 07:00 89 22 116/66 (83) 95 11/09/17 06:00 90 11/09/17 06:00 90 140/65 11/09/17 04:30 93 31 128/67 (87) 94 11/09/17 04:15 92 23 114/57 (76) 95 11/09/17 04:00 98.8 91 18 137/69 (91) 95 11/09/17 04:00 91 11/09/17 03:45 91 33 122/65 (84) 95 11/09/17 03:30 92 34 127/68 (87) 96 11/09/17 03:15 92 21 137/64 (88) 95 11/09/17 03:00 93 25 127/65 (85) 97 11/09/17 02:45 94 23 126/67 (86) 97 11/09/17 02:30 91 32 126/70 (88) 98 11/09/17 02:16 91 25 127/66 (86) 95 11/09/17 02:00 91 11/09/17 02:00 91 30 126/59 (81) 96 11/09/17 01:46 101 41 126/65 (85) 97 11/09/17 01:30 92 18 127/64 (85) 96 11/09/17 01:15 92 18 129/65 (86) 95 11/09/17 01:00 93 18 138/67 (90) 95 11/09/17 00:30 93 17 121/64 (83) 95 11/09/17 00:15 93 19 113/61 (78) 95 11/09/17 00:00 94 11/09/17 00:00 98.6 94 20 111/59 (76) 94 11/08/17 23:45 96 18 124/62 (82) 94 11/08/17 23:30 95 17 124/57 (79) 94 11/08/17 23:15 96 17 134/67 (89) 94 11/08/17 23:00 96 28 119/62 (81) 95 11/08/17 22:45 97 20 126/60 (82) 94 11/08/17 22:30 96 26 115/58 (77) 95 11/08/17 22:15 97 24 124/62 (82) 93 11/08/17 22:00 97 23 113/59 (77) 94 11/08/17 22:00 97 11/08/17 21:30 100 20 127/62 (83) 93 11/08/17 21:15 100 20 121/55 (77) 94 11/08/17 21:00 99 21 125/61 (82) 93 11/08/17 20:55 99 21 Arterial Line 93 11/08/17 20:45 98 22 122/59 (80) 94 11/08/17 20:45 98 22 122/59 (80) 94 Arterial Line 11/08/17 20:40 99 22 Arterial Line 93 11/08/17 20:30 98 22 123/55 (77) 94 Arterial Line 11/08/17 20:30 98 22 123/55 (77) 94 11/08/17 20:25 98 25 Arterial Line 93 11/08/17 20:16 99 129/60 11/08/17 20:15 100 20 129/60 (83) 95 11/08/17 20:15 100 20 129/60 (83) 95 Arterial Line 11/08/17 20:10 101 24 Arterial Line 91 11/08/17 20:00 98.1 97 26 128/65 (86) 94 Arterial Line 11/08/17 20:00 97 11/08/17 20:00 98.1 97 26 128/65 (86) 94 11/08/17 19:55 98 21 127/66 (86) 93 11/08/17 19:55 98 21 127/66 (86) 93 Arterial Line 11/08/17 19:50 97 17 131/70 (90) 93 11/08/17 19:50 97 17 131/70 (90) 93 Arterial Line 11/08/17 19:45 99 22 131/66 (87) 92 Arterial Line 11/08/17 19:45 99 22 131/66 (87) 92 11/08/17 19:40 99 21 131/64 (86) 92 119/60 (79) 11/08/17 19:40 99 21 131/64 (86) 92 119/60 (79) 11/08/17 19:35 99 25 125/60 (81) 92 121/60 (80) 11/08/17 19:35 99 25 125/60 (81) 92 121/60 (80) 11/08/17 19:30 100 23 123/59 (80) 94 125/54 (77) 11/08/17 19:30 100 23 123/59 (80) 94 125/54 (77) 11/08/17 19:25 99 23 119/59 (79) 93 I/O 11/08/17 11/08/17 11/08/17 11/09/17 11/09/17 11/09/17 07:00 15:00 23:00 07:00 15:00 23:00 Intake Total 1108 ml 1250 ml 1608 ml 250 ml 480 ml Output Total 350 ml 2100 ml 800 ml 400 ml 600 ml Balance 758 ml -850 ml 808 ml -150 ml -120 ml Intake Oral 500 ml 250 ml 480 ml IV Total 1108 ml 1250 ml 1108 ml Output Urine Total 350 ml 2100 ml 800 ml 400 ml 600 ml # Voids 5 # Bowel Movements 0 0 Physical Exam GENERAL: SKIN: Warm and dry. HEAD: Normocephalic. EYES: No scleral icterus. No injection or drainage. NECK: Supple, trachea midline. No JVD or lymphadenopathy. CARDIOVASCULAR: Regular rate and rhythm without murmurs, gallops, or rubs. RESPIRATORY: Breath sounds equal bilaterally. No accessory muscle use. GASTROINTESTINAL: Abdomen soft, non-tender, nondistended. MUSCULOSKELETAL: No cyanosis, or edema. BACK: Nontender without obvious deformity. No CVA tenderness. Laboratory Laboratory Tests Test 11/09/17 03:22 11/09/17 15:00 White Blood Count 9.7 TH/MM3 Red Blood Count 3.62 MIL/MM3 Hemoglobin 12.3 GM/DL Hematocrit 36.2 % Mean Corpuscular Volume 100.2 FL Mean Corpuscular Hemoglobin 34.0 PG Mean Corpuscular Hemoglobin Concent 33.9 % Red Cell Distribution Width 13.2 % Platelet Count 129 TH/MM3 Mean Platelet Volume 10.7 FL Neutrophils (%) (Auto) 80.0 % Lymphocytes (%) (Auto) 10.3 % Monocytes (%) (Auto) 9.0 % Eosinophils (%) (Auto) 0.2 % Basophils (%) (Auto) 0.5 % Neutrophils # (Auto) 7.7 TH/MM3 Lymphocytes # (Auto) 1.0 TH/MM3 Monocytes # (Auto) 0.9 TH/MM3 Eosinophils # (Auto) 0.0 TH/MM3 Basophils # (Auto) 0.0 TH/MM3 CBC Comment DIFF FINAL Differential Comment Blood Urea Nitrogen 18 MG/DL Creatinine 1.08 MG/DL Random Glucose 110 MG/DL Calcium Level 7.5 MG/DL Sodium Level 140 MEQ/L Potassium Level 3.5 MEQ/L Chloride Level 104 MEQ/L Carbon Dioxide Level 28.1 MEQ/L Anion Gap 8 MEQ/L Estimat Glomerular Filtration Rate 71 ML/MIN Total Creatine Kinase 271 U/L B-Type Natriuretic Peptide 195 PG/ML Triglycerides Level 160 MG/DL Cholesterol Level 152 MG/DL LDL Cholesterol 88 MG/DL HDL Cholesterol 32.2 MG/DL Cholesterol/HDL Ratio 4.72 RATIO Activated Partial Thromboplast Time 212.0 SEC Assessment and Plan Problem List: (1) CAD (coronary artery disease) ICD Codes: I25.10 - Atherosclerotic heart disease of [place] coronary artery without angina pectoris (2) S/P CABG x 3 ICD Codes: Z95.1 - Presence of aortocoronary bypass graft (3) Cardiomyopathy ICD Codes: I42.9 - Cardiomyopathy, unspecified (4) ICD (implantable cardioverter-defibrillator) battery depletion ICD Codes: Z45.02 - Encounter for adjustment and management of automatic implantable cardiac defibrillator (5) CHF (congestive heart failure) ICD Codes: I50.9 - Heart failure, unspecified (6) Dyspnea ICD Codes: R06.00 - Dyspnea, unspecified (7) Palpitations ICD Codes: R00.2 - Palpitations (8) Tobacco abuse ICD Codes: Z72.0 - Tobacco use (9) Wide-complex tachycardia ICD Codes: I47.2 - Ventricular tachycardia (10) Ventricular tachycardia ICD Codes: I47.2 - Ventricular tachycardia Assessment and Plan 1.) Ventricular tachycardia - symptomatic, recurrent, d/w Dr Felder, he recommends attempt at lidocaine bolus of 100 mg iv and if not converted to proceed to cardioversion, unable to do EPS until 5-6 s/p plavix bolus, continue iv amiodarone; at this point VT appears to be nonischemic in origin as he is completely revascularized 11/08/17; replete electrolytes prn 2.) CAD - continue aspirin, plavix 3.) Cardiomyopathy - continue altace, aldactone, lasix, f/u bnp/bmp; there is uncertainty of his ability to tolerate beta blockers has he developed hypotension and diaphoresis with administration of 5 mg iv lopressor and recurrent vt occurred @ 2-3 hours after he was given coreg 3.125 mg po, so i have discontinued coreg and will defer risks and benefits of beta leigh use to Dr Felder; f/u bnp, bmp Moe Hassan MD November 09, 2017 19:24
[2017-11-09] MEDS ORDERED: POTASSIUM CHLORIDE 10 MEQ CONTROLLED RELEASE TAB PO ONE (20:00)
--- NOTE | 2017-11-09 20:26 | MR ---
cc: Moe Hassan MD, Arthur W MD DATE: 11/09/2017 PROCEDURE: Cardioversion INDICATIONS FOR PROCEDURE: 1. Ventricular tachycardia. 2. Symptomatic ventricular tachycardia. 3. Coronary artery disease. 4. Cardiomyopathy. PROCEDURE IN DETAIL: Pads were placed in the appropriate positions. The patient was started on a heparin bolus and drip with an ACT at 212. He was given 1 mg of Versed and 50 mcg of IV fentanyl. First attempt was made at synchronized cardioversion at 100 joules. This was unsuccessful. 200 joules was unsuccessful. 300 joules was unsuccessful and finally at 360 joules, the patient cardioverted to normal sinus rhythm. Blood pressure improved from 90 systolic to 130 systolic. The patient felt much better. I attempted to call Dr. Felder, but he was not available. Therefore, I called Dr. Marina, who recommended lidocaine drip which we initiated and also I ordered a transfer to ICU. Continue IV amiodarone. Continue IV heparin and continue electrolyte repletion p.r.n. Moe Hassan MD AWViolette/ , 07:29 PM , 08:24 PM
[2017-11-09] MEDS: MELATONIN 5 MG TAB PO SCH (20:50)
[2017-11-09] MEDS: MAGNESIUM SULFATE 1 GM PREMIX 100 ML IV SCH ×2 (20:52→22:17)
[2017-11-09] MEDS: SPIRONOLACTONE 25 MG TAB PO SCH (20:52)
[2017-11-09] MEDS ORDERED: CARVEDILOL 3.125 MG TAB PO SCH (21:00)
--- NOTE | 2017-11-09 21:37 | MB ---
cc: Robbie Marina MD, Huijian MD Crossman,Moe Angel MD DATE: 11/09/2017 REFERRING PHYSICIAN: Dr. Hassan REASON FOR CONSULTATION: Management of tachycardia. HISTORY OF PRESENT ILLNESS: Ms. Huynh is a 57-year-old gentleman who presented to [facility] with tachycardia. He does have CAD status post bypass and maze procedure back in 2013. He also had ischemic cardiomyopathy, had a single-chamber [employer] ICD implanted by Dr. Khan at [place]. He did have episodes of VT, status post ICD shocks in the past. He presented to [place] with some tachycardia. I did review all the tracings. He was admitted and he had cardiac catheterization with Dr. Hassan, which showed ostial LAD disease, status post bare metal stenting along with stenting involving SVG to RCA. Cardiac catheterization also showed EF around 30%. He has seen by Dr. Felder, but today on the floor he was noted to have tachycardia. He had multiple shocks, finally terminated by [address] Felder was not available. I got involved in his care. He was started on amiodarone drip and given lidocaine bolus and currently on lidocaine drip of 2 along with amio 0.5 mg. Currently, he is in sinus. I did review the ICD interrogation. So far, VT setting is over 170. Some of the VT episodes could be slower than that. Overall morphology agree with Dr. Felder. It could be most likely VT giving different axis with more than left bundle branch block morphology. He is stable at this moment. He has been given potassium and he is getting magnesium. I also ordered calcium gluconate. PAST MEDICAL HISTORY: As above. ALLERGIES: NO KNOWN DRUG ALLERGIES. THERE IS A QUESTION ABOUT BETA HEMA INCLUDING METOPROLOL AND COREG. SOCIAL HISTORY: He used to smoke cigars and drinks some alcohol. FAMILY HISTORY: Not significant for CAD at early age. MEDICATIONS: 1. Ramipril 2.5 mg. 2. Amiodarone drip 0.5 3. Lidocaine drip. 4. Aspirin 162 mg along with Plavix 75 mg. PHYSICAL EXAMINATION: VITAL SIGNS: Blood pressure of 124/70 with pulse in the 80s. The patient is afebrile. HEENT: Normal oral exam. PERRLA. ENDOCRINE: There is no thyroid enlargement. LYMPHATIC: There is lymphadenopathy. RESPIRATORY: Decreased breath sounds bilaterally, but no crackles. CARDIOVASCULAR: Decreased S1, S2. Left-sided ICD incision well healed. No loud murmurs. ABDOMEN: Active bowel sounds in all 4 quadrants. GENITOURINARY: Deferred. MUSCULOSKELETAL: All range of motion. SKIN: There is no ecchymosis. PSYCHIATRIC: The patient has good mood good judgment. LABORATORY DATA: So far, hematocrit 36 with potassium 3.5. BNP is decreased at 191 with potassium 3.5, which has been supplemented. Calcium was low also. ASSESSMENT: 1. Tachycardiac. So far, it is more consistent with ventricular tachycardia with axis changes. I agree with Dr. Felder. 2. Coronary artery disease status post bypass. 3. Atrial fibrillation, status post MAZE procedure. 4. [employer] single chamber implantable cardioverter-defibrillator. 5. Dizziness. 6. Status post recent left anterior descending percutaneous coronary intervention involving ostial lesion along with stent to saphenous vein graft to right coronary artery. PLAN: I will admit him for supportive care. We will keep amiodarone drip along with lidocaine drip overnight. May consider switching to mexiletine tomorrow along with amiodarone. I also discussed the option of ablation with him if he has recurrent tachycardia. So far, it is more consistent with ventricular tachycardia. I also talked to the [employer] dermatology sales representative. We will change the ventricular tachycardia zone to 150 beats along with ATP addition, along with shock treatment. I will continue aspirin and Plavix with recent coronary artery disease status post percutaneous coronary intervention. I would like to hold off on ablation if possible, with recent coronary artery disease status post percutaneous coronary intervention. We were aiming for medical treatment. Hopefully, he will be stabilized on amiodarone along with a class 1B drug. I will also continue potassium supplements, magnesium supplement along with calcium gluconate. We will see how he does overnight first. I would like to thank Dr. Hassan for letting me participate in the care of Mr. Huynh. MD CARMEN Fenton/ , 09:04 PM , 09:36 PM
[2017-11-09] MEDS ORDERED: CALCIUM GLUCONATE INJ 1 GM in SODIUM CHLORIDE 0.9% INJ 100 ML IV ONE (22:00)
[2017-11-10] VITALS (11 sets, daily range): BP systolic 144–164; BP diastolic 75–111; PULSE 81–97; RESP 14–20; TEMP 98.4–98.7; O2SAT 96–97
[2017-11-10 01:11] LABS: HEMATOCRIT 34.3 % (39.0-51.0); HEMOGLOBIN 11.9 GM/DL (13.0-17.0); MEAN CELL VOLUME 99.3 FL (80.0-100.0); MEAN CORPUSCULAR HEMOGLOBIN 34.5 PG (27.0-34.0); MEAN CORPUSCULAR HGB CONC 34.7 % (32.0-36.0); MEAN PLATELET VOLUME 10.4 FL (7.0-11.0); PLATELET COUNT 123 TH/MM3 (150-450); RED BLOOD COUNT 3.45 MIL/MM3 (4.50-5.90); RED CELL DISTRIBUTION WIDTH 13.2 % (11.6-17.2); WHITE BLOOD COUNT 7.4 TH/MM3 (4.0-11.0)
[2017-11-10 01:13] LABS: AUTOMATED NEUTROPHIL # 5.3 TH/MM3 (1.8-7.7); BASOPHIL % 0.4 % (0.0-2.0); EOSINOPHIL # 0.1 TH/MM3 (0-0.4); EOSINOPHIL % 0.9 % (0.0-4.0); HEMATOCRIT 34.3 % (39.0-51.0); HEMOGLOBIN 11.9 GM/DL (13.0-17.0); LYMPH % 16.9 % (9.0-44.0); LYMPHOCYTE # 1.3 TH/MM3 (1.0-4.8); MEAN CELL VOLUME 99.3 FL (80.0-100.0); MEAN CORPUSCULAR HEMOGLOBIN 34.4 PG (27.0-34.0); MEAN CORPUSCULAR HGB CONC 34.6 % (32.0-36.0); MEAN PLATELET VOLUME 10.2 FL (7.0-11.0); MONO % 9.8 % (0.0-8.0); MONOCYTE # 0.7 TH/MM3 (0-0.9); PLATELET COUNT 118 TH/MM3 (150-450); RED BLOOD COUNT 3.46 MIL/MM3 (4.50-5.90); RED CELL DISTRIBUTION WIDTH 13.1 % (11.6-17.2); WHITE BLOOD COUNT 7.4 TH/MM3 (4.0-11.0)
[2017-11-10 01:38] LABS: ALBUMIN 2.9 GM/DL (3.4-5.0); ALKALINE PHOSPHATASE 136 U/L (45-117); ALT (GPT) 167 U/L (12-78); AST (GOT) 124 U/L (15-37); BICARBONATE 25.5 MEQ/L (21.0-32.0); BLOOD UREA NITROGEN 12 MG/DL (7-18); CALCIUM 7.6 MG/DL (8.5-10.1); CHLORIDE 103 MEQ/L (98-107); CREATININE 0.92 MG/DL (0.60-1.30); DIRECT BILIRUBIN ADULT 0.3 MG/DL (0.0-0.2); FREE T4 1.02 NG/DL (0.76-1.46); GLOMERULAR FILTRATION RATE 85 ML/MIN (>89); GLUCOSE,RANDOM 108 MG/DL (74-106); INDIRECT BILIRUBIN 0.5 MG/DL (0.0-0.8); MAGNESIUM 2.5 MG/DL (1.5-2.5); PHOSPHORUS 1.5 MG/DL (2.5-4.9); SODIUM (NA) 139 MEQ/L (136-145); TOTAL BILIRUBIN ADULT 0.8 MG/DL (0.2-1.0); TOTAL PROTEIN 6.6 GM/DL (6.4-8.2)
[2017-11-10] MEDS: AMIODARONE INJ 450 MG in SODIUM CHLOR 0.9% 250 ML INJ 241 ML IV PRN (04:00)
[2017-11-10] MEDS: CHLORHEXIDINE GLUCONATE 2 % 1 PACK (2 CLOTHS) TOP SCH (04:00)
[2017-11-10] MEDS: SPIRONOLACTONE 25 MG TAB PO SCH ×2 (08:59→17:31)
[2017-11-10] MEDS: DOCUSATE SODIUM 50 MG/SENNA 8.6 MG TAB PO SCH ×2 (09:00→20:16)
[2017-11-10] MEDS: SODIUM CHLORIDE 0.9% FLUSH 10 ML FLUSH IV FLUSH SCH ×2 (09:00→20:16)
[2017-11-10] MEDS: ASPIRIN 81 MG CHEW TAB PO SCH (09:01)
[2017-11-10] MEDS: CLOPIDOGREL 75 MG TAB PO SCH (09:02)
[2017-11-10] MEDS: RAMIPRIL 2.5 MG CAP PO SCH (09:02)
[2017-11-10] MEDS ORDERED: POTASSIUM PHOSPHATE INJ 30 MMOL in SODIUM CHLOR 0.9% 250 ML INJ 250 ML IV ONE (10:00)
--- NOTE | 2017-11-10 10:17 | HHI.PR ---
Subjective Remarks 11/07:This is a 57-year-old male who has a history of coronary artery disease status post CABG with a reduced ejection fraction of 30% and an AICD who presents to the emergency department with palpitations that started overnight, constant, severe, associated with some shortness of breath. He denies any chest discomfort. He says his AICD is set to fire at 220. He has never had symptoms like this before. 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 One month ago he was evaluated in our chest pain center and had a normal stress test. He later developed shingles which was the etiology of his pain. Patient was evaluated in the ER at [place]. He received adenosine 12 mg IV with no change in his heart rate. He was diagnosed to be in slow V. tach. Dr. Hassan from cardiology was contacted by ER physician and recommended transferring patient to the [facility] after being initiated on heparin and amiodarone drips. Patient was accepted for admission by critical care medicine service. I evaluated the patient immediately on his arrival to the ICU. At the time of my evaluation patient was resting in bed with a heart rate in the 180s however did not appear to be in any acute distress. He did complain of palpitations however denies any chest pain. He did have minimal shortness of breath at the time. Patient was on heparin and amiodarone drips. Adenosine 12 mg IV push was administered with 12-lead EKG running. Patient had absolutely no change in his heart rate which was at 188 bpm. His ICD was interrogated by ICD rep. It was reading the rhythm as SVT however there was limited data as patient was still in the acute episode per ICD rep. I spoke with Dr. Hassan personally evaluating patient and he recommended attempting Lopressor 5 mg IV for rate control. 11/08: Patient complaining of some shortness of breath and chest discomfort this morning. He had a heart rate of 180s when I was evaluating patient however maintaining his blood pressure. Subsequently he reportedly converted to sinus rhythm when being evaluated by Dr. Rivero. 11-09 patient has been transferred to our service today Had cardiac catheterization yesterday with Dr. Hassan Was seen by Dr. RIVERO Remains on amiodarone drip Discussed with RN and patient Increased activity physical therapy and occupational therapy to eval and treat Try to transfer out of ICU bed is available 11-10 had issues with ventricular tachycardia yesterday Was cardioverted by Dr. Hassan Seen by electrophysiology medications have been adjusted Started on amiodarone and mexiletine Discussed with RN and patient Hep-Lock IV Increase activity REPLACE POTASSIUM Objective Vitals Vital Signs Date Time Temp Pulse Resp B/P (MAP) Pulse Ox O2 Delivery O2 Flow Rate FiO2 11/10/17 07:00 85 11/10/17 04:00 98.7 87 16 160/82 (108) 96 11/10/17 04:00 88 11/10/17 04:00 88 158/71 11/10/17 00:00 98.6 84 14 161/75 (103) 97 11/10/17 00:00 90 11/09/17 20:00 88 11/09/17 20:00 98.5 88 16 124/69 (87) 98 11/09/17 18:01 86 127/88 11/09/17 17:01 87 11/09/17 16:01 100.2 173 20 98/71 (80) 95 11/09/17 16:00 94 11/09/17 16:00 93 4.00 11/09/17 15:00 182 11/09/17 14:00 178 11/09/17 13:00 84 11/09/17 12:52 82 136/76 11/09/17 12:01 98.4 84 18 138/76 (96) 94 11/09/17 12:00 86 I/O 11/09/17 11/09/17 11/09/17 11/10/17 11/10/17 11/10/17 07:00 15:00 23:00 07:00 15:00 23:00 Intake Total 1608 ml 250 ml 580 ml 2010 ml Output Total 800 ml 400 ml 600 ml 1850 ml Balance 808 ml -150 ml -20 ml 160 ml Intake Oral 500 ml 250 ml 480 ml 480 ml IV Total 1108 ml 100 ml 1530 ml Output Urine Total 800 ml 400 ml 600 ml 1850 ml # Bowel Movements 0 0 Result Diagram: 11/10/174211/10/1742 Other Results Laboratory Tests Test 11/07/17 10:30 11/07/17 15:11 11/07/17 21:32 11/08/17 03:20 Nasal Screen MRSA (PCR) MRSA NOT DETECTED White Blood Count 12.4 TH/MM3 14.8 TH/MM3 Red Blood Count 4.42 MIL/MM3 4.42 MIL/MM3 Hemoglobin 14.9 GM/DL 14.7 GM/DL Hematocrit 44.1 % 43.8 % Mean Corpuscular Volume 99.8 FL 99.2 FL Mean Corpuscular Hemoglobin 33.7 PG 33.3 PG Mean Corpuscular Hemoglobin Concent 33.7 % 33.6 % Red Cell Distribution Width 13.8 % 13.7 % Platelet Count 178 TH/MM3 176 TH/MM3 Mean Platelet Volume 10.2 FL 10.6 FL Activated Partial Thromboplast Time 31.4 SEC 32.1 SEC 34.3 SEC Troponin I 0.26 NG/ML 0.27 NG/ML Neutrophils (%) (Auto) 75.9 % Lymphocytes (%) (Auto) 14.8 % Monocytes (%) (Auto) 8.8 % Eosinophils (%) (Auto) 0.1 % Basophils (%) (Auto) 0.4 % Neutrophils # (Auto) 11.2 TH/MM3 Lymphocytes # (Auto) 2.2 TH/MM3 Monocytes # (Auto) 1.3 TH/MM3 Eosinophils # (Auto) 0.0 TH/MM3 Basophils # (Auto) 0.1 TH/MM3 CBC Comment DIFF FINAL Differential Comment Blood Urea Nitrogen 17 MG/DL Creatinine 1.02 MG/DL Random Glucose 141 MG/DL Total Protein 7.3 GM/DL Albumin 3.3 GM/DL Calcium Level 7.7 MG/DL Phosphorus Level 3.1 MG/DL Magnesium Level 1.7 MG/DL Alkaline Phosphatase 59 U/L Aspartate Amino Transf (AST/SGOT) 51 U/L Alanine Aminotransferase (ALT/SGPT) 80 U/L Total Bilirubin 0.7 MG/DL Sodium Level 141 MEQ/L Potassium Level 4.6 MEQ/L Chloride Level 108 MEQ/L Carbon Dioxide Level 19.7 MEQ/L Anion Gap 13 MEQ/L Estimat Glomerular Filtration Rate 76 ML/MIN B-Type Natriuretic Peptide 483 PG/ML Triglycerides Level 320 MG/DL Cholesterol Level 218 MG/DL LDL Cholesterol 116 MG/DL HDL Cholesterol 38.0 MG/DL Cholesterol/HDL Ratio 5.73 RATIO Test 11/08/17 09:45 11/08/17 16:52 11/09/17 03:22 11/09/17 15:00 Activated Partial Thromboplast Time 36.4 SEC 133.3 SEC 212.0 SEC White Blood Count 9.7 TH/MM3 Red Blood Count 3.62 MIL/MM3 Hemoglobin 12.3 GM/DL Hematocrit 36.2 % Mean Corpuscular Volume 100.2 FL Mean Corpuscular Hemoglobin 34.0 PG Mean Corpuscular Hemoglobin Concent 33.9 % Red Cell Distribution Width 13.2 % Platelet Count 129 TH/MM3 Mean Platelet Volume 10.7 FL Neutrophils (%) (Auto) 80.0 % Lymphocytes (%) (Auto) 10.3 % Monocytes (%) (Auto) 9.0 % Eosinophils (%) (Auto) 0.2 % Basophils (%) (Auto) 0.5 % Neutrophils # (Auto) 7.7 TH/MM3 Lymphocytes # (Auto) 1.0 TH/MM3 Monocytes # (Auto) 0.9 TH/MM3 Eosinophils # (Auto) 0.0 TH/MM3 Basophils # (Auto) 0.0 TH/MM3 CBC Comment DIFF FINAL Differential Comment Blood Urea Nitrogen 18 MG/DL Creatinine 1.08 MG/DL Random Glucose 110 MG/DL Calcium Level 7.5 MG/DL Sodium Level 140 MEQ/L Potassium Level 3.5 MEQ/L Chloride Level 104 MEQ/L Carbon Dioxide Level 28.1 MEQ/L Anion Gap 8 MEQ/L Estimat Glomerular Filtration Rate 71 ML/MIN Total Creatine Kinase 271 U/L B-Type Natriuretic Peptide 195 PG/ML Triglycerides Level 160 MG/DL Cholesterol Level 152 MG/DL LDL Cholesterol 88 MG/DL HDL Cholesterol 32.2 MG/DL Cholesterol/HDL Ratio 4.72 RATIO Test 11/10/17 00:43 White Blood Count 7.4 TH/MM3 Red Blood Count 3.46 MIL/MM3 Hemoglobin 11.9 GM/DL Hematocrit 34.3 % Mean Corpuscular Volume 99.3 FL Mean Corpuscular Hemoglobin 34.4 PG Mean Corpuscular Hemoglobin Concent 34.6 % Red Cell Distribution Width 13.1 % Platelet Count 118 TH/MM3 Mean Platelet Volume 10.2 FL Neutrophils (%) (Auto) 72.0 % Lymphocytes (%) (Auto) 16.9 % Monocytes (%) (Auto) 9.8 % Eosinophils (%) (Auto) 0.9 % Basophils (%) (Auto) 0.4 % Neutrophils # (Auto) 5.3 TH/MM3 Lymphocytes # (Auto) 1.3 TH/MM3 Monocytes # (Auto) 0.7 TH/MM3 Eosinophils # (Auto) 0.1 TH/MM3 Basophils # (Auto) 0.0 TH/MM3 CBC Comment DIFF FINAL Differential Comment Activated Partial Thromboplast Time 26.8 SEC Blood Urea Nitrogen 12 MG/DL Creatinine 0.92 MG/DL Random Glucose 108 MG/DL Total Protein 6.6 GM/DL Albumin 2.9 GM/DL Calcium Level 7.6 MG/DL Phosphorus Level 1.5 MG/DL Magnesium Level 2.5 MG/DL Alkaline Phosphatase 136 U/L Aspartate Amino Transf (AST/SGOT) 124 U/L Alanine Aminotransferase (ALT/SGPT) 167 U/L Total Bilirubin 0.8 MG/DL Direct Bilirubin 0.3 MG/DL Sodium Level 139 MEQ/L Potassium Level 3.4 MEQ/L Chloride Level 103 MEQ/L Carbon Dioxide Level 25.5 MEQ/L Anion Gap 11 MEQ/L Estimat Glomerular Filtration Rate 85 ML/MIN Indirect Bilirubin 0.5 MG/DL B-Type Natriuretic Peptide 448 PG/ML Free Thyroxine 1.02 NG/DL Thyroid Stimulating Hormone 3rd Gen 2.440 uIU/ML Objective Remarks GENERAL: Awake alert and oriented 3 talkative and cooperative SKIN: Warm and dry. HEAD: Atraumatic. Normocephalic. EYES: Pupils equal and round. No scleral icterus. No injection or drainage. Extraocular muscles intact ENT: No nasal bleeding or discharge. Mucous membranes pink and moist. Tongue is midline NECK: Trachea midline. No JVD. Supple CARDIOVASCULAR: IRRegular rate and rhythm. S1-S2 no S3 or S4 RESPIRATORY: No accessory muscle use. Clear to auscultation. Breath sounds equal bilaterally. GASTROINTESTINAL: Abdomen soft, non-tender, nondistended. Hepatic and splenic margins not palpable. MUSCULOSKELETAL: Extremities without clubbing, cyanosis, or edema. No obvious deformities. Right groin catheterization site is stable NEUROLOGICAL: Awake and alert. No obvious cranial nerve deficits. Motor grossly within normal limits. Five out of 5 muscle strength in the arms and legs. Normal speech. PSYCHIATRIC: Appropriate mood and affect; insight and judgment normal. Procedures 11/08/2017 PROCEDURE PERFORMED: Right heart catheterization, left heart catheterization, left ventriculography, coronary angiography, saphenous vein angiography, HENDERSON angiography, IFR of the ostial LAD, IFR of the proximal LAD, IFR of the distal LAD and mid-LAD with pullback IFR of the distal and mid-LAD, direct PCI with bare metal stent in the ostial LAD, direct PCI with bare-metal stent in the proximal LAD, FFR of the vein graft to the right coronary artery and direct PCI with bare metal stent of the vein graft to the right coronary artery anastomosis. INDICATIONS: V-tach, wide complex tachycardia, coronary artery disease, decompensated congestive heart failure, congestive heart failure, cardiomyopathy, coronary artery disease, status post CABG, non-STEMI. PROCEDURE: The patient was brought to the cardiac catheterization laboratory, prepped and draped in the usual sterile fashion. 10 mL of 1% lidocaine was used to locally anesthetize the right common femoral artery, a 4-Swedish sheath placed in right common femoral artery, a 5.5-Swedish sheath placed in the right common femoral vein. Right heart catheterization was performed first with the following findings: Pulmonary capillary wedge pressure 29/27-27. PA pressure 60/25-44. RV pressure 62/21-32. RA pressures 18/16-13. By Keith the cardiac output is 5.8 liters per minute. Cardiac index is 2.4 liters per meter2 square per minute. SVR is 1136.9 dynes. Sats on room air: FA sat 96.2%, PA sat 70.4%, RA sat 72.0%. Left heart catheterization was then performed with a 4-Swedish, JR4, JL5 and AR1 modified catheter with the following findings: The LV pressure is 118/4-20. Ejection fraction is 30%. Left ventricle appears to be dilated, at least mild to moderately. The right coronary artery is occluded proximally. The vein graft to first obtuse marginal vessel was widely patent. The marginal vessel has a proximal bifurcation just after the graft insertion site with both branches being about 2.5 mm in diameter with no significant obstructive disease. There is retrograde filling back to the circumflex vessel, which then fills the AV groove, left circumflex and then it fills 2 distal small posterolateral arteries, which are about 0.5 mm in diameter. The HENDERSON to LAD appears atretic in the ostial proximal segment. It is occluded in the proximal mid-segment. The left main coronary artery has no significant disease angiographically. Left circumflex vessel is occluded in the proximal segment. The LAD has an ostial 70% stenosis. It has a long 70% proximal mid-stenosis. The mid-segment has a 50% stenosis at a bifurcation with a small to medium-sized diagonal vessel, which is about 2.25 to 2.5 mm vessel angiographically. The LAD is tortuous in the mid to distal segment with no obvious focal segmental stenosis. It is a transapical vessel supplying the distal inferior apical wall. The initial ACT was 170. 2000 units of heparin was given. Subsequent ACT was 170. Another 2000 units of heparin was given. The next ACT was approximately 170. It was then determined that the IV was functioning properly and that the machine may not be working right. Therefore, we did give another 2000 units of heparin and checked an ACT on a different machine. Final ACT was 340. A 6-Swedish sheath was exchanged for the 4-Swedish sheath. I do think it was medically necessary to do FFR of the LAD and the anastomosis of the vein graft to the right coronary artery given the V-tach, the high risk presentation with cardiomyopathy, ventricular tachycardia refractory to IV amiodarone and high risk for significant morbidity and mortality. Therefore, a 6-Swedish XB 4.0 guide and a 0.014 [place] pressure wire was placed in the aortic root. Note: Pressure waveforms were normalized in the aortic root as the lesion location was in the ostium of the LAD. The introducer was removed. Guide catheter was thoroughly flushed with 20 mL of normal saline. We did a normalization of the pressure waveform. I then advanced the 0.014 [place] pressure wire into the distal LAD. Initial IFR was 0.88. We then placed a 4.0/9 Integrity stent at the ostium of the left anterior descending, one inflation to 16 atmospheres for 20 seconds. Stenosis went from 70% to 0% with NIKO 3 flow. I then did remove the wire. We did a second waveform normalization under normal conditions with flushing of the catheter and removal of the introducer as previously done. IFR remained at 0.88. The proximal LAD did appear to be 70% angiographically. I then placed a 4.0/18 Integrity stent at this lesion site, one inflation 16 of atmospheres for 20 seconds. Stenosis went from 70% to 0% with NIKO 3 flow. We then removed the wire to the third normalization under protocol conditions as previous, advanced the wire into the distal LAD. The IFR was still 0.88, therefore did a pullback across the area of tortuosity in the mid to distal LAD. IFR was then normal at 0.98. There was wire biasing of the very tortuous segment of the mid to distal LAD. I suspect that this was what was creating the gradient. Also, due to the extreme tortuosity of this segment, I did not feel the risk/benefit ratio favored initially stenting this segment and therefore did not perform PCI of the segment. Pullback proximal to this lesion showed an IFR 0.98 suggesting that the mid-LAD at the bifurcation with the diagonal vessel was not hemodynamically significant. The bifurcation of the diagonal vessel was about a 25-degree angle and the diagonal vessel was a medium-sized vessel. Therefore, I did think the risk/benefit ratio favored initially stenting this lesion either. We then turned our attention to the vein graft to the right coronary artery. We used a 6-Swedish AR1 guide, placed a 0.014 [place] pressure wire into the distal graft proximal to the lesion, removed the introducer to 20 mL of normal saline flush, normalized the pressure waveforms, then advanced the 0.014 [place] pressure wire into the [place] right coronary artery and right PDA. Initial IFR was 0.98. We did a 3-minute infusion of adenosine at 140 mcg/kg per minute. At about 90 seconds, the FFR dropped to 0.78. Therefore, we proceeded to direct PCI with bare metal stent of the vein graft anastomosis to the right coronary artery with a 3.0/9 Integrity stent, one inflation of 12 atmospheres for 20 seconds. The stenosis went from 70% to 0% with NIKO 3 flow. Note that after the 3 PCIs done, initial pressure was 110 systolic. Final pressure was 145 systolic. The patient's dyspnea improved as well immediately. CONCLUSION: 1. Wide complex tachycardia, thought to be ventricular tachycardia by Dr. Rivero, the patrol supervisor. Indeterminate culprit lesions, but the IFR of the ostial left anterior descending was 0.88, IFR of the proximal left anterior descending was 0.88 and FFR of the vein graft to right coronary anastomosis was 0.78. 2. Successful direct percutaneous coronary intervention of the ostial left anterior descending from 70% to 0% with NIKO 3 flow. 3. Successful direct percutaneous coronary intervention with bare metal stent of the proximal left anterior descending from 70% to 0% with NIKO 3 flow. 4. Successful direct percutaneous coronary intervention with bare metal stent of the vein graft to the right coronary artery from 70% to 0% with NIKO 3 flow. 5. Pullback FFR of the mid to distal very tortuous left anterior descending did show normalization of the IFR. Percutaneous coronary intervention deferred due to extreme vessel tortuosity and it appeared that there was significant vessel wire biasing which may have created a false stenosis. There was no IFR gradient of the mid left anterior descending 50% stenosis. 6. Also note that the patient had somewhat atypical anatomy; it was difficult to determine whether the vein graft to the right coronary artery anastomosis appeared to fill a right posterior descending artery and what would anatomically would be the right posterolateral artery. However, this segment, which was the stenotic area, then filled a segment that also bifurcated and appeared to demonstrate a posterior descending artery and posterolateral artery with retrograde filling of what appeared to be the right coronary artery. Note, there was partial obstruction of the questionable posterior descending artery at the vein graft anastomosis, but flow was NIKO 3 and the ostium appeared to be at about 50% stenosis. This was a 1.5-2 mm vessel. 7. Severe left ventricular systolic dysfunction, left ventricular ejection fraction of 30%. 8. Markedly elevated right heart catheterization pressures as detailed above. 9. Elevated left ventricular end-diastolic pressure equal to 20. 10. Severe three-vessel coronary artery disease with 2 of 3 grafts patent and severe stenosis in the vein graft to the right coronary artery, as detailed above. RECOMMENDATIONS: 1. Recommend Plavix 600 mg load, then 75 mg a day for 12-15 months. Aspirin 162 mg daily. Note the final activated clotting time was 340. Also 40 of intravenous Lasix was given at the end of the procedure, due to the markedly elevated right heart catheterization pressures. 2. We will continue telemetry monitoring. 3. Will defer to Dr. Rivero further evaluation for arrhythmia and antiarrhythmic therapy. Moe Hassan MD 11/09/2017 PROCEDURE: Cardioversion INDICATIONS FOR PROCEDURE: 1. Ventricular tachycardia. 2. Symptomatic ventricular tachycardia. 3. Coronary artery disease. 4. Cardiomyopathy. PROCEDURE IN DETAIL: Pads were placed in the appropriate positions. The patient was started on a heparin bolus and drip with an ACT at 212. He was given 1 mg of Versed and 50 mcg of IV fentanyl. First attempt was made at synchronized cardioversion at 100 joules. This was unsuccessful. 200 joules was unsuccessful. 300 joules was unsuccessful and finally at 360 joules, the patient cardioverted to normal sinus rhythm. Blood pressure improved from 90 systolic to 130 systolic. The patient felt much better. I attempted to call Dr. Rivero, but he was not available. Therefore, I called Dr. Marina, who recommended lidocaine drip which we initiated and also I ordered a transfer to ICU. Continue IV amiodarone. Continue IV heparin and continue electrolyte repletion p.r.n. Moe Hassan MD Medications and IVs Current Medications Adenosine (Adenocard Inj) 12 mg STK-MED ONCE .ROUTE Last administered on at 10:12; Start 11/07/17 at 10:06; Stop 11/07/17 at 10:07; Status DC Sodium Chloride 1,000 ml @ 84 mls/hr [id number] IV Last administered on at 05:46; Start 11/07/17 at 10:10 Sodium Chloride (NS Flush) 2 ml UNSCH PRN IV FLUSH FLUSH AFTER USING IV ACCESS Last administered on 11/09/17at 08:49; Start 11/07/17 at 10:15; Stop 11/09/17 at 19:49; Status DC Sodium Chloride (NS Flush) 2 ml BID IV FLUSH Last administered on 11/08/17at 08: 02; Start 11/07/17 at 21:00; Stop 11/08/17 at 16:32; Status DC Acetaminophen (Tylenol) 650 mg Q6H PRN PO PAIN 1-10 AND/OR FEVER >101F Last administered on 11/09/17at 13:58; Start 11/07/17 at 10:15 Ondansetron HCl (Zofran Odt) 4 mg Q6H PRN PO NAUSEA OR VOMITING; Start at 10:15 Metoclopramide HCl (Reglan Inj) 10 mg Q6H PRN IV PUSH NAUSEA OR VOMITING; Start 11/07/17 at 10:15 Albuterol/ Ipratropium (Duoneb Neb) 1 ampule Q2HR NEB PRN INH WHEEZING; Start 11/07/17 at 10:15 Miscellaneous Information ([facility]) 1 [id number] Last administered on 11/07/17at 10:15; Start 11/07/17 at 10:15 Chlorhexidine Gluconate (Chlorhexidine 2% Cloth) 3 pack Taper DAILY@04 TOP Last administered on 11/10/17at 04:00; Start 11/08/17 at 04:00; Stop 11/04/18 at 03:59 Chlorhexidine Gluconate (Chlorhexidine 2% Cloth) 3 pack UNSCH PRN TOP HYGIENIC CARE; Start 11/07/17 at 10:15 Senna/Docusate Sodium (Amna-Colace) 1 tab BID PO ; Start 11/07/17 at 21:00 Magnesium Hydroxide (Milk Of Magnesia Liq) 30 ml Q12H PRN PO Mild constipation ; Start 11/07/17 at 10:15 Sennosides (Senokot) 17.2 mg Q12H PRN PO Moderate constipation; Start 11/07/17 at 10:15 Bisacodyl (Dulcolax Supp) 10 mg DAILY PRN RECTAL SEVERE CONSITIPATION; Start at 10:15 Lactulose (Lactulose Liq) 30 ml DAILY PRN PO SEVERE CONSITIPATION; Start at 10:15 Metoprolol Tartrate (Lopressor Inj) 5 mg ONCE ONCE IV PUSH Last administered on 11/07/17at 11:12; Start 11/07/17 at 10:45; Stop 11/07/17 at 10:53; Status DC Amiodarone HCl 450 mg/Dextrose 250 ml @ 16.66 mls/ hr Q15H1M PRN IV Per Protocol; Start 11/07/17 at 14:58; Status UNV Heparin Sodium/ Dextrose 250 ml @ 0 mls/hr TITRATE PRN IV Coagulation Management; Start 11/07/17 at 15:00; Status UNV Amiodarone HCl 450 mg/Dextrose 250 ml @ 16.66 mls/ hr TITRATE PRN IV Per Protocol; Start 11/07/17 at 15:00; Status Cancel Heparin Sodium/ Dextrose 250 ml @ 10 mls/hr TITRATE PRN IV Ordered parameters Last administered on 11/08/17at 06:22; Start 11/07/17 at 15:15; Stop 11/09/17 at 14:38; Status DC Amiodarone HCl 450 mg/Sodium Chloride 250 ml @ 16.66 mls/ hr TITRATE PRN IV Per Protocol Last administered on 11/10/17at 04:00; Start 11/07/17 at 15:15 Aspirin (Ecotrin Ec) 81 mg ONCE ONCE PO Last administered on 11/07/17at 20:19; Start 11/07/17 at 20:00; Stop 11/07/17 at 20:12; Status DC Aspirin (Ecotrin Ec) 81 mg DAILY PO Last administered on 11/08/17at 08:02; Start 11/08/17 at 09:00; Stop 11/09/17 at 09:36; Status DC Melatonin (Melatonin) 5 mg HS PO Last administered on 11/09/17at 20:50; Start at 22:00 Morphine Sulfate (Morphine Inj) 2 mg Q4H PRN IV PUSH pain 8-10 or not taking po Last administered on 11/08/17at 21:46; Start 11/08/17 at 02:45 Promethazine HCl (Phenergan Inj) 12.5 mg ONCE ONCE IM Last administered on at 08:02; Start 11/08/17 at 05:45; Stop 11/08/17 at 05:46; Status DC Isoproterenol HCl 0 ml @ As Directed STK-MED ONCE IV ; Start 11/08/17 at 12:11; Stop 11/08/17 at 12:12; Status DC Heparin Sodium/ Sodium Chloride 0 ml @ As Directed STK-MED ONCE .ROUTE ; Start 11/08/17 at 12:11; Stop 11/08/17 at 12:12; Status DC Protamine Sulfate (Protamine Sulfate Inj) 50 mg STK-MED ONCE .ROUTE ; Start at 12:12; Stop 11/08/17 at 12:13; Status DC Heparin Sodium/ Dextrose 0 ml @ As Directed STK-MED ONCE .ROUTE ; Start at 12:13; Stop 11/08/17 at 12:14; Status DC Heparin Sodium/ Sodium Chloride 1,500 ml @ As Directed STK-MED ONCE .ROUTE ; Start 11/08/17 at 14:00; Stop 11/08/17 at 14:01; Status DC Midazolam HCl (Versed Inj) 2 mg STK-MED ONCE .ROUTE Last administered on at 14:24; Start 11/08/17 at 14:01; Stop 11/08/17 at 14:02; Status DC Fentanyl Citrate (fentaNYL INJ) 100 mcg STK-MED ONCE .ROUTE Last administered on 11/08/17at 14:25; Start 11/08/17 at 14:01; Stop 11/08/17 at 14:02; Status DC Adenosine (Adenoscan Inj) 90 mg STK-MED ONCE .ROUTE Last administered on at 15:30; Start 11/08/17 at 14:55; Stop 11/08/17 at 14:56; Status DC Furosemide (Lasix Inj) 40 mg STK-MED ONCE .ROUTE Last administered on at 15:46; Start 11/08/17 at 15:43; Stop 11/08/17 at 15:44; Status DC Clopidogrel Bisulfate (Plavix) 600 mg STK-MED ONCE .ROUTE ; Start 11/08/17 at 15 :48; Stop 11/08/17 at 15:49; Status DC Heparin Sodium (Porcine) (Heparin Inj) 20,000 units STK-MED ONCE .ROUTE Last administered on 11/08/17at 14:53; Start 11/08/17 at 15:58; Stop 11/08/17 at 15:59 ; Status DC Sodium Chloride (NS Flush) 2 ml UNSCH PRN IV FLUSH FLUSH AFTER USING IV ACCESS Last administered on 11/09/17at 08:49; Start 11/08/17 at 16:15 Sodium Chloride (NS Flush) 2 ml BID IV FLUSH Last administered on 11/10/17at 09: 00; Start 11/08/17 at 21:00 Aspirin (Aspirin Chew) 162 mg DAILY PO Last administered on 11/10/17at 09:01; Start 11/09/17 at 09:00 Clopidogrel Bisulfate (Plavix) 600 mg ONCE ONCE PO ; Start 11/08/17 at 16:45; Stop 11/08/17 at 16:46; Status DC Clopidogrel Bisulfate (Plavix) 75 mg DAILY PO Last administered on 11/10/17at 09 :02; Start 11/09/17 at 09:00 Miscellaneous Information 1 ONCE ONCE XX ; Start 11/08/17 at 16:15; Stop at 16:31; Status DC Iohexol (OMNIPAQUE 350 INJ (Twx Operator)) 100 ml STK-MED ONCE OTHER ; Start at 17:18; Stop 11/08/17 at 17:19; Status DC Spironolactone (Aldactone) 25 mg DAILY PO ; Start 11/09/17 at 09:00; Status UNV Spironolactone (Aldactone) 25 mg BID@09,18 PO Last administered on 11/10/17at 08 :59; Start 11/09/17 at 20:00 Ramipril (Altace) 2.5 mg ONCE ONCE PO Last administered on 11/09/17at 08:48; Start 11/09/17 at 08:00; Stop 11/09/17 at 08:01; Status DC Ramipril (Altace) 2.5 mg DAILY PO Last administered on 11/10/17at 09:02; Start 11/10/17 at 09:00 Carvedilol (Coreg) 3.125 mg ONCE ONCE PO Last administered on 11/09/17at 08:48 ; Start 11/09/17 at 08:00; Stop 11/09/17 at 08:01; Status DC Carvedilol (Coreg) 3.125 mg Q12HR PO ; Start 11/09/17 at 21:00; Stop 11/09/17 at 21:00; Status DC Heparin Sodium/ Dextrose 250 ml @ 18 mls/hr TITRATE PRN IV Coagulation Management Last administered on 11/09/17at 14:51; Start 11/09/17 at 15:00 Heparin Sodium (Porcine) (Heparin Inj) 5,000 units UNSCH PRN IV PUSH aPTT less than 25; Start 11/09/17 at 14:45 Heparin Sodium (Porcine) (Heparin Inj) 2,500 units UNSCH PRN IV PUSH aPTT 25 to 39; Start 11/09/17 at 14:45 Heparin Sodium (Porcine) (Heparin Inj) 9,000 units ONCE ONCE IV Last administered on 11/09/17at 14:52; Start 11/09/17 at 15:00; Stop 11/09/17 at 15:01 ; Status DC Lidocaine HCl (Xylocaine 2% Inj) 100 mg STAT ONCE IV PUSH Last administered on 11/09/17at 15:14; Start 11/09/17 at 15:15; Stop 11/09/17 at 15:16; Status DC Fentanyl Citrate (fentaNYL INJ) 100 mcg STK-MED ONCE .ROUTE ; Start 11/09/17 at 15:49; Stop 11/09/17 at 15:50; Status DC Midazolam HCl (Versed Inj) 5 mg STK-MED ONCE .ROUTE ; Start 11/09/17 at 15:49; Stop 11/09/17 at 15:50; Status DC Fentanyl Citrate (fentaNYL INJ) 25 mcg ONCE ONCE IV PUSH Last administered on 11/09/17at 15:41; Start 11/09/17 at 15:41; Stop 11/09/17 at 16:33; Status DC Midazolam HCl (Versed Inj) 1 mg NOW ONCE IV PUSH Last administered on at 15:41; Start 11/09/17 at 15:41; Stop 11/09/17 at 16:33; Status DC Lidocaine HCl/ Dextrose 500 ml @ 30 mls/hr [id number] IV Last administered on at 18:01; Start 11/09/17 at 16:45 Fentanyl Citrate (fentaNYL INJ) 50 mcg NOW ONCE IV Last administered on at 16:25; Start 11/09/17 at 16:25; Stop 11/09/17 at 16:35; Status DC Magnesium Sulfate/ Dextrose 100 ml @ 100 mls/hr Q1H IV Last administered on at 22:17; Start 11/09/17 at 20:00; Stop 11/09/17 at 21:59; Status DC Potassium Chloride (KCl) 30 meq ONCE ONCE PO Last administered on 11/09/17at 20 :50; Start 11/09/17 at 20:00; Stop 11/09/17 at 20:01; Status DC Calcium Gluconate 1 gm/Sodium Chloride 110 ml @ 110 mls/hr ONCE ONCE IV Last administered on 11/10/17at 01:16; Start 11/09/17 at 22:00; Stop 11/09/17 at 22:59 ; Status DC Potassium Phosphate 30 mmol/ Sodium Chloride 260 ml @ 43.333 mls/ hr ONCE ONCE IV Last administered on 11/10/17at 09:39; Start 11/10/17 at 10:00; Stop at 15:59 A/P Assessment and Plan Assessment and Plan 57-year-old male with : Tachyarrhythmia: SVT versus slow V. tach CAD Ischemic cardiomyopathy History of A. fib History of CABG/Maze procedure History of ICD placement Status post cardiac catheterization was bare-metal stent to the LAD and saphenous vein graft HYPOKALEMIA WILL REPLACE HYPOMAG WILL REPLACE SP CARDIOVERSION ON11-09 Plan: Neuro: Follow neuro status. avoid sedatives and narcotics. Cardiovascular: Started on heparin for anticoagulation and amiodarone gtt. following bolus. Did not respond with adenosine 12 mg IV with absolutely no change in heart rate raising concern for accessory pathway SVT versus slow V. tach. Discussed with Dr. Moe Hassan from cardiology. EP consulted per Dr. Hassan. Patient reportedly converted to sinus rhythm and Dr. Hassan is planning cardiac catheterization. Remains on amiodarone drip Pulmonary: Supplemental O2. GI/liver: Continue cardiac diet Renal/: IV hydration, strict intake output, monitor and replete electrolytes, follow BUN/creatinine. ID: No indication for antibiotics at this time. Heme: On anticoagulation with heparin. Endocrine: Watch for hyperglycemia, SSI for glycemic control if needed Prophylaxis: On heparin for full anticoagulation. No indication for GI prophylaxis at this time. Is being followed by ELECTROPHYSIOLOGY Further recommendations per Dr. Moe Hassan. Discussed current clinical status with patient and updated regarding plan of care and he voiced understanding and was agreeable. Patient will be transferred to hospitalist service for further medical management as he has converted out of this tachyarrhythmia. Discharge Planning PENDING CARDIAC CLEARANCE Tramaine Mensah DO November 10, 2017 10:17
[2017-11-10] MEDS ORDERED: POTASSIUM CHLORIDE 10 MEQ CAP PO ONE (10:45)
[2017-11-10] MEDS ORDERED: POTASSIUM BICARBONATE 25 MEQ EFFERVESCENT TAB PO ONE (11:00)
[2017-11-10] MEDS ORDERED: FUROSEMIDE 20 MG/2 ML VIAL IV PUSH ONE (12:00)
[2017-11-10] MEDS: MEXILETINE HCL 200 MG CAP PO SCH ×2 (13:48→17:30)
--- NOTE | 2017-11-10 14:23 | PD.CARD.PN ---
Subjective Subjective Remarks alert in nad Objective Medications Current Medications Medications (Trade) Dose Ordered Sig/Janneth Route Start Time Stop Time Status Last Admin (Tylenol) 650 mg Q6H PRN PO 11/07/17 10:15 11/09/17 13:58 (Zofran Odt) 4 mg Q6H PRN PO 11/07/17 10:15 (Reglan Inj) 10 mg Q6H PRN IV PUSH 11/07/17 10:15 (Duoneb Neb) 1 ampule Q2HR NEB PRN INH 11/07/17 10:15 ([facility] Nursing Information) 1 Q361D XX 11/07/17 10:15 11/07/17 10:15 (Chlorhexidine 2% Cloth) 3 pack Taper DAILY@04 TOP 11/08/17 04:00 11/04/18 03:59 11/10/17 04:00 (Chlorhexidine 2% Cloth) 3 pack UNSCH PRN TOP 11/07/17 10:15 (Amna-Colace) 1 tab BID PO 11/07/17 21:00 (Milk Of Magnesia Liq) 30 ml Q12H PRN PO 11/07/17 10:15 (Senokot) 17.2 mg Q12H PRN PO 11/07/17 10:15 (Dulcolax Supp) 10 mg DAILY PRN RECTAL 11/07/17 10:15 (Lactulose Liq) 30 ml DAILY PRN PO 11/07/17 10:15 Amiodarone HCl 450 mg/Sodium Chloride 250 ml @ 16.66 mls/ hr TITRATE PRN IV 11/07/17 15:15 11/11/17 06:00 11/10/17 04:00 (Melatonin) 5 mg HS PO 11/07/17 22:00 11/09/17 20:50 (Morphine Inj) 2 mg Q4H PRN IV PUSH 11/08/17 02:45 11/08/17 21:46 (NS Flush) 2 ml UNSCH PRN IV FLUSH 11/08/17 16:15 11/09/17 08:49 (NS Flush) 2 ml BID IV FLUSH 11/08/17 21:00 11/10/17 09:00 (Aspirin Chew) 162 mg DAILY PO 11/09/17 09:00 11/10/17 09:01 (Plavix) 75 mg DAILY PO 11/09/17 09:00 11/10/17 09:02 (Aldactone) 25 mg BID@09,18 PO 11/09/17 20:00 11/10/17 08:59 (Altace) 2.5 mg DAILY PO 11/10/17 09:00 11/10/17 09:02 Heparin Sodium/ Dextrose 250 ml @ 18 mls/hr TITRATE PRN IV 11/09/17 15:00 11/09/17 14:51 (Heparin Inj) 5,000 units UNSCH PRN IV PUSH 11/09/17 14:45 (Heparin Inj) 2,500 units UNSCH PRN IV PUSH 11/09/17 14:45 Potassium Phosphate 30 mmol/ Sodium Chloride 260 ml @ 43.333 mls/ hr ONCE ONCE IV 11/10/17 10:00 11/10/17 15:59 11/10/17 09:39 (Mexitil) 200 mg TID PO 11/10/17 13:00 11/10/17 13:48 (Cordarone) 200 mg TID PO 11/11/17 09:00 Vital Signs / I&O Vital Signs Date Time Temp Pulse Resp B/P (MAP) Pulse Ox O2 Delivery O2 Flow Rate FiO2 11/10/17 11:20 98.4 87 18 164/98 (120) 96 11/10/17 11:00 97 11/10/17 09:05 96 21 11/10/17 07:00 85 11/10/17 04:00 98.7 87 16 160/82 (108) 96 11/10/17 04:00 88 11/10/17 04:00 88 158/71 11/10/17 00:00 98.6 84 14 161/75 (103) 97 11/10/17 00:00 90 11/09/17 20:00 88 11/09/17 20:00 98.5 88 16 124/69 (87) 98 11/09/17 18:01 86 127/88 11/09/17 17:01 87 11/09/17 16:01 100.2 173 20 98/71 (80) 95 11/09/17 16:00 94 11/09/17 16:00 93 4.00 11/09/17 15:00 182 I/O 5/30/18 5/3011/09/17 11/10/17 11/10/17 11/10/17 06:59 14:59 22:59 06:59 14:59 22:59 Intake Total 1608 ml 250 ml 580 ml 2010 ml 602 ml Output Total 800 ml 400 ml 600 ml 1850 ml Balance 808 ml -150 ml -20 ml 160 ml 602 ml Intake Oral 500 ml 250 ml 480 ml 480 ml IV Total 1108 ml 100 ml 1530 ml 602 ml Output Urine Total 800 ml 400 ml 600 ml 1850 ml # Bowel Movements 0 0 Physical Exam GENERAL: SKIN: Warm and dry. HEAD: Normocephalic. EYES: No scleral icterus. No injection or drainage. NECK: Supple, trachea midline. No JVD or lymphadenopathy. CARDIOVASCULAR: Regular rate and rhythm without murmurs, gallops, or rubs. RESPIRATORY: Breath sounds equal bilaterally. No accessory muscle use. GASTROINTESTINAL: Abdomen soft, non-tender, nondistended. MUSCULOSKELETAL: No cyanosis, or edema. BACK: Nontender without obvious deformity. No CVA tenderness. Laboratory Laboratory Tests Test 11/09/17 15:00 11/10/17 00:43 Activated Partial Thromboplast Time 212.0 SEC 26.8 SEC White Blood Count 7.4 TH/MM3 Red Blood Count 3.46 MIL/MM3 Hemoglobin 11.9 GM/DL Hematocrit 34.3 % Mean Corpuscular Volume 99.3 FL Mean Corpuscular Hemoglobin 34.4 PG Mean Corpuscular Hemoglobin Concent 34.6 % Red Cell Distribution Width 13.1 % Platelet Count 118 TH/MM3 Mean Platelet Volume 10.2 FL Neutrophils (%) (Auto) 72.0 % Lymphocytes (%) (Auto) 16.9 % Monocytes (%) (Auto) 9.8 % Eosinophils (%) (Auto) 0.9 % Basophils (%) (Auto) 0.4 % Neutrophils # (Auto) 5.3 TH/MM3 Lymphocytes # (Auto) 1.3 TH/MM3 Monocytes # (Auto) 0.7 TH/MM3 Eosinophils # (Auto) 0.1 TH/MM3 Basophils # (Auto) 0.0 TH/MM3 CBC Comment DIFF FINAL Differential Comment Blood Urea Nitrogen 12 MG/DL Creatinine 0.92 MG/DL Random Glucose 108 MG/DL Total Protein 6.6 GM/DL Albumin 2.9 GM/DL Calcium Level 7.6 MG/DL Phosphorus Level 1.5 MG/DL Magnesium Level 2.5 MG/DL Alkaline Phosphatase 136 U/L Aspartate Amino Transf (AST/SGOT) 124 U/L Alanine Aminotransferase (ALT/SGPT) 167 U/L Total Bilirubin 0.8 MG/DL Direct Bilirubin 0.3 MG/DL Sodium Level 139 MEQ/L Potassium Level 3.4 MEQ/L Chloride Level 103 MEQ/L Carbon Dioxide Level 25.5 MEQ/L Anion Gap 11 MEQ/L Estimat Glomerular Filtration Rate 85 ML/MIN Indirect Bilirubin 0.5 MG/DL B-Type Natriuretic Peptide 448 PG/ML Free Thyroxine 1.02 NG/DL Thyroid Stimulating Hormone 3rd Gen 2.440 uIU/ML Assessment and Plan Problem List: (1) CAD (coronary artery disease) ICD Codes: I25.10 - Atherosclerotic heart disease of [place] coronary artery without angina pectoris (2) S/P CABG x 3 ICD Codes: Z95.1 - Presence of aortocoronary bypass graft (3) Cardiomyopathy ICD Codes: I42.9 - Cardiomyopathy, unspecified (4) ICD (implantable cardioverter-defibrillator) battery depletion ICD Codes: Z45.02 - Encounter for adjustment and management of automatic implantable cardiac defibrillator (5) CHF (congestive heart failure) ICD Codes: I50.9 - Heart failure, unspecified (6) Dyspnea ICD Codes: R06.00 - Dyspnea, unspecified (7) Palpitations ICD Codes: R00.2 - Palpitations (8) Tobacco abuse ICD Codes: Z72.0 - Tobacco use (9) Wide-complex tachycardia ICD Codes: I47.2 - Ventricular tachycardia (10) Ventricular tachycardia ICD Codes: I47.2 - Ventricular tachycardia Assessment and Plan 1.) Ventricular tachycardia - VT appears to be nonischemic in origin as he is completely revascularized 11/08/17; replete electrolytes prn; remains in narrow complex nsr s/p cardioversion with synchronized 360 j 11/09/17, lidocaine drip discontinued by Dr Marina, started on po mexilitine and amiodarone per Dr Marina, icd threshold changed to 150 bpm with atp pre shock algorhythm, d/w Dr Marina, ok to dc iv amiodarone 11/11/17 with possible discharge 11/11/17 and then elective ablation as outpatient 2.) CAD - continue aspirin, plavix 3.) Cardiomyopathy - continue altace, aldactone, lasix, f/u bnp/bmp; there is uncertainty of his ability to tolerate beta blockers has he developed hypotension and diaphoresis with administration of 5 mg iv lopressor and recurrent vt occurred @ 2-3 hours after he was given coreg 3.125 mg po, so i have discontinued coreg and will defer risks and benefits of beta leigh use to Dr Felder; f/u bnp, bmp Moe Hassan MD November 10, 2017 14:23
[2017-11-10 16:08] LABS: HEMOGLOBIN A1C 4.8 % (4.3-6.0)
[2017-11-10] MEDS: MELATONIN 5 MG TAB PO SCH (20:10)
[2017-11-11] VITALS (13 sets, daily range): BP systolic 147–157; BP diastolic 88–98; PULSE 77–148; RESP 16–22; TEMP 97.9–98.7; O2SAT 96–98
[2017-11-11] MEDS: CHLORHEXIDINE GLUCONATE 2 % 1 PACK (2 CLOTHS) TOP SCH (04:00)
[2017-11-11 04:26] LABS: AUTOMATED NEUTROPHIL # 6.1 TH/MM3 (1.8-7.7); BASOPHIL # 0.1 TH/MM3 (0-0.2); BASOPHIL % 0.9 % (0.0-2.0); EOSINOPHIL # 0.2 TH/MM3 (0-0.4); LYMPH % 17.5 % (9.0-44.0); LYMPHOCYTE # 1.6 TH/MM3 (1.0-4.8); MEAN CELL VOLUME 99.3 FL (80.0-100.0); MEAN CORPUSCULAR HEMOGLOBIN 33.8 PG (27.0-34.0); MEAN CORPUSCULAR HGB CONC 34.1 % (32.0-36.0); MONO % 10.8 % (0.0-8.0); NEUT % 68.8 % (16.0-70.0); PLATELET COUNT 152 TH/MM3 (150-450); RED BLOOD COUNT 3.83 MIL/MM3 (4.50-5.90); RED CELL DISTRIBUTION WIDTH 13.6 % (11.6-17.2); WHITE BLOOD COUNT 8.9 TH/MM3 (4.0-11.0)
[2017-11-11 04:47] LABS: ALBUMIN 3.2 GM/DL (3.4-5.0); AST (GOT) 59 U/L (15-37); BICARBONATE 22.1 MEQ/L (21.0-32.0); BLOOD UREA NITROGEN 12 MG/DL (7-18); CALCIUM 8.2 MG/DL (8.5-10.1); CHLORIDE 105 MEQ/L (98-107); CREATININE 0.92 MG/DL (0.60-1.30); GLOMERULAR FILTRATION RATE 85 ML/MIN (>89); GLUCOSE,RANDOM 102 MG/DL (74-106); MAGNESIUM 2.1 MG/DL (1.5-2.5); SODIUM (NA) 137 MEQ/L (136-145)
[2017-11-11 04:48] LABS: ALT (GPT) 151 U/L (12-78); PHOSPHORUS 2.3 MG/DL (2.5-4.9)
[2017-11-11 04:51] LABS: ALKALINE PHOSPHATASE 121 U/L (45-117); TOTAL BILIRUBIN ADULT 0.8 MG/DL (0.2-1.0); TOTAL PROTEIN 7.5 GM/DL (6.4-8.2)
--- NOTE | 2017-11-11 08:40 | EKG ---
Date Performed: 11/09/2017 Time Performed: 14:18:34 PTAGE: 57 years EKG: VENTRICULAR TACHYCARDIA PROLONGED QT INTERVAL PREVIOUS TRACING : 11/09/2017 07.41 DOCTOR: Moe Hassan Interpretating Date/Time 11/11/2017 08:37:59
[2017-11-11] MEDS: CLOPIDOGREL 75 MG TAB PO SCH (08:49)
[2017-11-11] MEDS: SPIRONOLACTONE 25 MG TAB PO SCH (08:50)
[2017-11-11] MEDS: AMIODARONE 200 MG TAB PO SCH ×3 (08:51→16:58)
[2017-11-11] MEDS: RAMIPRIL 2.5 MG CAP PO SCH (08:51)
[2017-11-11] MEDS: ASPIRIN 81 MG CHEW TAB PO SCH (08:51)
[2017-11-11] MEDS: MEXILETINE HCL 200 MG CAP PO SCH ×3 (08:51→16:58)
[2017-11-11] MEDS: SODIUM CHLORIDE 0.9% FLUSH 10 ML FLUSH IV FLUSH SCH ×2 (08:52→19:57)
[2017-11-11] MEDS: DOCUSATE SODIUM 50 MG/SENNA 8.6 MG TAB PO SCH ×2 (09:00→20:02)
[2017-11-11] MEDS ORDERED: MAGNESIUM OXIDE 400 MG TAB PO ONE (09:15)
[2017-11-11] MEDS ORDERED: ICU - POTASSIUM PHOSPHATE 30 MMOL/NS 250 ML IV ONE ×2 (10:00)
--- NOTE | 2017-11-11 10:57 | PD.CARD.PN ---
Subjective Subjective Remarks alert in nad Objective Medications Current Medications Medications (Trade) Dose Ordered Sig/Janneth Route Start Time Stop Time Status Last Admin (Tylenol) 650 mg Q6H PRN PO 11/07/17 10:15 11/09/17 13:58 (Zofran Odt) 4 mg Q6H PRN PO 11/07/17 10:15 (Reglan Inj) 10 mg Q6H PRN IV PUSH 11/07/17 10:15 11/10/17 20:11 (Duoneb Neb) 1 ampule Q2HR NEB PRN INH 11/07/17 10:15 ([facility] Nursing Information) 1 Q361D XX 11/07/17 10:15 11/07/17 10:15 (Chlorhexidine 2% Cloth) 3 pack Taper DAILY@04 TOP 11/08/17 04:00 11/04/18 03:59 11/11/17 04:00 (Chlorhexidine 2% Cloth) 3 pack UNSCH PRN TOP 11/07/17 10:15 (Amna-Colace) 1 tab BID PO 11/07/17 21:00 (Milk Of Magnesia Liq) 30 ml Q12H PRN PO 11/07/17 10:15 (Senokot) 17.2 mg Q12H PRN PO 11/07/17 10:15 (Dulcolax Supp) 10 mg DAILY PRN RECTAL 11/07/17 10:15 (Lactulose Liq) 30 ml DAILY PRN PO 11/07/17 10:15 (Melatonin) 5 mg HS PO 11/07/17 22:00 11/10/17 20:10 (Morphine Inj) 2 mg Q4H PRN IV PUSH 11/08/17 02:45 11/08/17 21:46 (NS Flush) 2 ml UNSCH PRN IV FLUSH 11/08/17 16:15 11/09/17 08:49 (NS Flush) 2 ml BID IV FLUSH 11/08/17 21:00 11/11/17 08:52 (Aspirin Chew) 162 mg DAILY PO 11/09/17 09:00 11/11/17 08:51 (Plavix) 75 mg DAILY PO 11/09/17 09:00 11/11/17 08:49 (Altace) 2.5 mg DAILY PO 11/10/17 09:00 11/11/17 08:51 Heparin Sodium/ Dextrose 250 ml @ 18 mls/hr TITRATE PRN IV 11/09/17 15:00 11/09/17 14:51 (Heparin Inj) 5,000 units UNSCH PRN IV PUSH 11/09/17 14:45 (Heparin Inj) 2,500 units UNSCH PRN IV PUSH 11/09/17 14:45 (Mexitil) 200 mg TID PO 11/10/17 13:00 11/11/17 08:51 (Cordarone) 200 mg TID PO 11/11/17 09:00 11/11/17 08:51 (Aldactone) 50 mg BID@,18 PO 11/11/17 18:00 (Mag-Ox) 400 mg Q12HR PO 11/11/17 21:00 Potassium Phosphate 30 mmol/ Sodium Chloride 260 ml @ 43.333 mls/ hr ONCE ONCE IV 11/11/17 10:00 11/11/17 15:59 11/11/17 10:10 Vital Signs / I&O Vital Signs Date Time Temp Pulse Resp B/P (MAP) Pulse Ox O2 Delivery O2 Flow Rate FiO2 11/11/17 07:44 97 21 11/11/17 07:00 77 11/11/17 07:00 98.4 77 18 147/88 (107) 97 11/11/17 03:00 98.3 79 20 147/95 (112) 96 11/11/17 03:00 80 11/10/17 23:00 98.6 81 20 144/85 (104) 97 11/10/17 23:00 81 11/10/17 20:44 97 21 11/10/17 19:00 84 11/10/17 19:00 98.6 84 20 162/111 (128) 97 11/10/17 15:22 98.5 83 18 147/78 (101) 97 11/10/17 15:00 83 11/10/17 11:20 98.4 87 18 164/98 (120) 96 11/10/17 11:00 97 I/O 11/10/17 11/10/17 11/10/17 11/11/17 11/11/17 11/11/17 07:00 15:00 23:00 07:00 15:00 23:00 Intake Total 2010 ml 602 ml 2496 ml 678 ml Output Total 1850 ml 2940 ml 1300 ml Balance 160 ml 602 ml -444 ml -622 ml Intake Oral 480 ml 1700 ml 480 ml IV Total 1530 ml 602 ml 796 ml 198 ml Output Urine Total 1850 ml 2940 ml 1300 ml # Bowel Movements 0 1 Physical Exam GENERAL: SKIN: Warm and dry. HEAD: Normocephalic. EYES: No scleral icterus. No injection or drainage. NECK: Supple, trachea midline. No JVD or lymphadenopathy. CARDIOVASCULAR: Regular rate and rhythm without murmurs, gallops, or rubs. RESPIRATORY: Breath sounds equal bilaterally. No accessory muscle use. GASTROINTESTINAL: Abdomen soft, non-tender, nondistended. MUSCULOSKELETAL: No cyanosis, or edema. BACK: Nontender without obvious deformity. No CVA tenderness. Laboratory Laboratory Tests Test 11/11/17 04:04 White Blood Count 8.9 TH/MM3 Red Blood Count 3.83 MIL/MM3 Hemoglobin 13.0 GM/DL Hematocrit 38.0 % Mean Corpuscular Volume 99.3 FL Mean Corpuscular Hemoglobin 33.8 PG Mean Corpuscular Hemoglobin Concent 34.1 % Red Cell Distribution Width 13.6 % Platelet Count 152 TH/MM3 Mean Platelet Volume 10.0 FL Neutrophils (%) (Auto) 68.8 % Lymphocytes (%) (Auto) 17.5 % Monocytes (%) (Auto) 10.8 % Eosinophils (%) (Auto) 2.0 % Basophils (%) (Auto) 0.9 % Neutrophils # (Auto) 6.1 TH/MM3 Lymphocytes # (Auto) 1.6 TH/MM3 Monocytes # (Auto) 1.0 TH/MM3 Eosinophils # (Auto) 0.2 TH/MM3 Basophils # (Auto) 0.1 TH/MM3 CBC Comment DIFF FINAL Differential Comment Blood Urea Nitrogen 12 MG/DL Creatinine 0.92 MG/DL Random Glucose 102 MG/DL Total Protein 7.5 GM/DL Albumin 3.2 GM/DL Calcium Level 8.2 MG/DL Phosphorus Level 2.3 MG/DL Magnesium Level 2.1 MG/DL Alkaline Phosphatase 121 U/L Aspartate Amino Transf (AST/SGOT) 59 U/L Alanine Aminotransferase (ALT/SGPT) 151 U/L Total Bilirubin 0.8 MG/DL Sodium Level 137 MEQ/L Potassium Level 3.9 MEQ/L Chloride Level 105 MEQ/L Carbon Dioxide Level 22.1 MEQ/L Anion Gap 10 MEQ/L Estimat Glomerular Filtration Rate 85 ML/MIN B-Type Natriuretic Peptide 606 PG/ML Assessment and Plan Problem List: (1) CAD (coronary artery disease) ICD Codes: I25.10 - Atherosclerotic heart disease of [place] coronary artery without angina pectoris (2) S/P CABG x 3 ICD Codes: Z95.1 - Presence of aortocoronary bypass graft (3) Cardiomyopathy ICD Codes: I42.9 - Cardiomyopathy, unspecified (4) ICD (implantable cardioverter-defibrillator) battery depletion ICD Codes: Z45.02 - Encounter for adjustment and management of automatic implantable cardiac defibrillator (5) CHF (congestive heart failure) ICD Codes: I50.9 - Heart failure, unspecified (6) Dyspnea ICD Codes: R06.00 - Dyspnea, unspecified (7) Palpitations ICD Codes: R00.2 - Palpitations (8) Tobacco abuse ICD Codes: Z72.0 - Tobacco use (9) Wide-complex tachycardia ICD Codes: I47.2 - Ventricular tachycardia (10) Ventricular tachycardia ICD Codes: I47.2 - Ventricular tachycardia Assessment and Plan 1.) Ventricular tachycardia - VT appears to be nonischemic in origin as he is completely revascularized 11/08/17; replete electrolytes prn; remains in narrow complex nsr s/p cardioversion with synchronized 360 j 11/09/17, lidocaine drip discontinued by Dr Marina, started on po mexilitine and amiodarone per Dr Marina, icd threshold changed to 150 bpm with atp pre shock algorhythm, d/w Dr Marina, ok to dc iv amiodarone 11/11/17 with possible discharge 11/11/17 and then elective ablation as outpatient 2.) CAD - continue aspirin, plavix 3.) Cardiomyopathy - continue altace, increase aldactone 50 mg bid, add magnesium, lasix, f/u bnp/bmp; there is uncertainty of his ability to tolerate beta blockers has he developed hypotension and diaphoresis with administration of 5 mg iv lopressor and recurrent vt occurred @ 2-3 hours after he was given coreg 3.125 mg po, so i have discontinued coreg and will defer risks and benefits of beta leigh use to Dr Felder; f/u bnp, bmp Moe Hassan MD Nov 11, 2017 10:57
--- NOTE | 2017-11-11 14:25 | HHI.PR ---
Subjective Remarks 11/07:This is a 57-year-old male who has a history of coronary artery disease status post CABG with a reduced ejection fraction of 30% and an AICD who presents to the emergency department with palpitations that started overnight, constant, severe, associated with some shortness of breath. He denies any chest discomfort. He says his AICD is set to fire at 220. He has never had symptoms like this before. 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 One month ago he was evaluated in our chest pain center and had a normal stress test. He later developed shingles which was the etiology of his pain. Patient was evaluated in the ER at [facility]. He received adenosine 12 mg IV with no change in his heart rate. He was diagnosed to be in slow V. tach. Dr. Hassan from cardiology was contacted by ER physician and recommended transferring patient to the [facility] after being initiated on heparin and amiodarone drips. Patient was accepted for admission by critical care medicine service. I evaluated the patient immediately on his arrival to the ICU. At the time of my evaluation patient was resting in bed with a heart rate in the 180s however did not appear to be in any acute distress. He did complain of palpitations however denies any chest pain. He did have minimal shortness of breath at the time. Patient was on heparin and amiodarone drips. Adenosine 12 mg IV push was administered with 12-lead EKG running. Patient had absolutely no change in his heart rate which was at 188 bpm. His ICD was interrogated by ICD rep. It was reading the rhythm as SVT however there was limited data as patient was still in the acute episode per ICD rep. I spoke with Dr. Hassan personally evaluating patient and he recommended attempting Lopressor 5 mg IV for rate control. 11/08: Patient complaining of some shortness of breath and chest discomfort this morning. He had a heart rate of 180s when I was evaluating patient however maintaining his blood pressure. Subsequently he reportedly converted to sinus rhythm when being evaluated by Dr. Rivero. 11-09 patient has been transferred to our service today Had cardiac catheterization yesterday with Dr. Hassan Was seen by Dr. RIVERO Remains on amiodarone drip Discussed with RN and patient Increased activity physical therapy and occupational therapy to eval and treat Try to transfer out of ICU bed is available 11-10 had issues with ventricular tachycardia yesterday Was cardioverted by Dr. Hassan Seen by electrophysiology medications have been adjusted Started on amiodarone and mexiletine Discussed with RN and patient Hep-Lock IV Increase activity REPLACE POTASSIUM 11-11 MEDICATIONS ADJUSTED BY [facility] WILL GET AM LABS IF STABLE CAN DC TO HOME TOMORROW FOLLOW UP WITH [facility], AND DR Rena GREENE AND PCP PROBABLY CAN RETURN TO WORK ON TUESDAY- DOES OFFICE WORK ONLY AND SITS AT [employer] RN AND PT AND CM HAD ABNORMAL RATE LAST NIGHT AND WAS BACK INTO NORMAL RHYTHM PER AICD PROTOCOLS NEW SETTINGS Objective Vitals Vital Signs Date Time Temp Pulse Resp B/P (MAP) Pulse Ox O2 Delivery O2 Flow Rate FiO2 11/11/17 11:10 81 11/11/17 11:10 98.7 81 18 154/88 (110) 97 11/11/17 07:44 97 21 11/11/17 07:00 77 11/11/17 07:00 98.4 77 18 147/88 (107) 97 11/11/17 03:00 98.3 79 20 147/95 (112) 96 11/11/17 03:00 80 11/10/17 23:00 98.6 81 20 144/85 (104) 97 11/10/17 23:00 81 11/10/17 20:44 97 21 11/10/17 19:00 84 11/10/17 19:00 98.6 84 20 162/111 (128) 97 11/10/17 15:22 98.5 83 18 147/78 (101) 97 11/10/17 15:00 83 I/O 11/10/17 11/10/17 11/10/17 11/11/17 11/11/17 11/11/17 07:00 15:00 23:00 07:00 15:00 23:00 Intake Total 2010 ml 602 ml 2496 ml 678 ml 400 ml Output Total 1850 ml 2940 ml 1300 ml 1050 ml Balance 160 ml 602 ml -444 ml -622 ml -650 ml Intake Oral 480 ml 1700 ml 480 ml 400 ml IV Total 1530 ml 602 ml 796 ml 198 ml Output Urine Total 1850 ml 2940 ml 1300 ml 1050 ml # Voids 2 # Bowel Movements 0 1 1 Result Diagram: 11/11/17 0404 11/11/17 0404 Other Results Laboratory Tests Test 11/08/17 16:52 11/09/17 03:22 11/09/17 15:00 11/10/17 00:43 Activated Partial Thromboplast Time 133.3 SEC 212.0 SEC 26.8 SEC White Blood Count 9.7 TH/MM3 7.4 TH/MM3 Red Blood Count 3.62 MIL/MM3 3.46 MIL/MM3 Hemoglobin 12.3 GM/DL 11.9 GM/DL Hematocrit 36.2 % 34.3 % Mean Corpuscular Volume 100.2 FL 99.3 FL Mean Corpuscular Hemoglobin 34.0 PG 34.4 PG Mean Corpuscular Hemoglobin Concent 33.9 % 34.6 % Red Cell Distribution Width 13.2 % 13.1 % Platelet Count 129 TH/MM3 118 TH/MM3 Mean Platelet Volume 10.7 FL 10.2 FL Neutrophils (%) (Auto) 80.0 % 72.0 % Lymphocytes (%) (Auto) 10.3 % 16.9 % Monocytes (%) (Auto) 9.0 % 9.8 % Eosinophils (%) (Auto) 0.2 % 0.9 % Basophils (%) (Auto) 0.5 % 0.4 % Neutrophils # (Auto) 7.7 TH/MM3 5.3 TH/MM3 Lymphocytes # (Auto) 1.0 TH/MM3 1.3 TH/MM3 Monocytes # (Auto) 0.9 TH/MM3 0.7 TH/MM3 Eosinophils # (Auto) 0.0 TH/MM3 0.1 TH/MM3 Basophils # (Auto) 0.0 TH/MM3 0.0 TH/MM3 CBC Comment DIFF FINAL DIFF FINAL Differential Comment Blood Urea Nitrogen 18 MG/DL 12 MG/DL Creatinine 1.08 MG/DL 0.92 MG/DL Random Glucose 110 MG/DL 108 MG/DL Calcium Level 7.5 MG/DL 7.6 MG/DL Sodium Level 140 MEQ/L 139 MEQ/L Potassium Level 3.5 MEQ/L 3.4 MEQ/L Chloride Level 104 MEQ/L 103 MEQ/L Carbon Dioxide Level 28.1 MEQ/L 25.5 MEQ/L Anion Gap 8 MEQ/L 11 MEQ/L Estimat Glomerular Filtration Rate 71 ML/MIN 85 ML/MIN Total Creatine Kinase 271 U/L B-Type Natriuretic Peptide 195 PG/ML 448 PG/ML Triglycerides Level 160 MG/DL Cholesterol Level 152 MG/DL LDL Cholesterol 88 MG/DL HDL Cholesterol 32.2 MG/DL Cholesterol/HDL Ratio 4.72 RATIO Total Protein 6.6 GM/DL Albumin 2.9 GM/DL Phosphorus Level 1.5 MG/DL Magnesium Level 2.5 MG/DL Alkaline Phosphatase 136 U/L Aspartate Amino Transf (AST/SGOT) 124 U/L Alanine Aminotransferase (ALT/SGPT) 167 U/L Total Bilirubin 0.8 MG/DL Direct Bilirubin 0.3 MG/DL Hemoglobin A1c 4.8 % Indirect Bilirubin 0.5 MG/DL Free Thyroxine 1.02 NG/DL Thyroid Stimulating Hormone 3rd Gen 2.440 uIU/ML Test 11/11/17 04:04 White Blood Count 8.9 TH/MM3 Red Blood Count 3.83 MIL/MM3 Hemoglobin 13.0 GM/DL Hematocrit 38.0 % Mean Corpuscular Volume 99.3 FL Mean Corpuscular Hemoglobin 33.8 PG Mean Corpuscular Hemoglobin Concent 34.1 % Red Cell Distribution Width 13.6 % Platelet Count 152 TH/MM3 Mean Platelet Volume 10.0 FL Neutrophils (%) (Auto) 68.8 % Lymphocytes (%) (Auto) 17.5 % Monocytes (%) (Auto) 10.8 % Eosinophils (%) (Auto) 2.0 % Basophils (%) (Auto) 0.9 % Neutrophils # (Auto) 6.1 TH/MM3 Lymphocytes # (Auto) 1.6 TH/MM3 Monocytes # (Auto) 1.0 TH/MM3 Eosinophils # (Auto) 0.2 TH/MM3 Basophils # (Auto) 0.1 TH/MM3 CBC Comment DIFF FINAL Differential Comment Blood Urea Nitrogen 12 MG/DL Creatinine 0.92 MG/DL Random Glucose 102 MG/DL Total Protein 7.5 GM/DL Albumin 3.2 GM/DL Calcium Level 8.2 MG/DL Phosphorus Level 2.3 MG/DL Magnesium Level 2.1 MG/DL Alkaline Phosphatase 121 U/L Aspartate Amino Transf (AST/SGOT) 59 U/L Alanine Aminotransferase (ALT/SGPT) 151 U/L Total Bilirubin 0.8 MG/DL Sodium Level 137 MEQ/L Potassium Level 3.9 MEQ/L Chloride Level 105 MEQ/L Carbon Dioxide Level 22.1 MEQ/L Anion Gap 10 MEQ/L Estimat Glomerular Filtration Rate 85 ML/MIN B-Type Natriuretic Peptide 606 PG/ML Objective Remarks GENERAL: Awake alert and oriented 3 talkative and cooperative SKIN: Warm and dry. HEAD: Atraumatic. Normocephalic. EYES: Pupils equal and round. No scleral icterus. No injection or drainage. Extraocular muscles intact ENT: No nasal bleeding or discharge. Mucous membranes pink and moist. Tongue is midline NECK: Trachea midline. No JVD. Supple CARDIOVASCULAR: IRRegular rate and rhythm. S1-S2 no S3 or S4 RESPIRATORY: No accessory muscle use. Clear to auscultation. Breath sounds equal bilaterally. GASTROINTESTINAL: Abdomen soft, non-tender, nondistended. Hepatic and splenic margins not palpable. MUSCULOSKELETAL: Extremities without clubbing, cyanosis, or edema. No obvious deformities. Right groin catheterization site is stable NEUROLOGICAL: Awake and alert. No obvious cranial nerve deficits. Motor grossly within normal limits. Five out of 5 muscle strength in the arms and legs. Normal speech. PSYCHIATRIC: Appropriate mood and affect; insight and judgment normal. Procedures 11/08/2017 PROCEDURE PERFORMED: Right heart catheterization, left heart catheterization, left ventriculography, coronary angiography, saphenous vein angiography, HENDERSON angiography, IFR of the ostial LAD, IFR of the proximal LAD, IFR of the distal LAD and mid-LAD with pullback IFR of the distal and mid-LAD, direct PCI with bare metal stent in the ostial LAD, direct PCI with bare-metal stent in the proximal LAD, FFR of the vein graft to the right coronary artery and direct PCI with bare metal stent of the vein graft to the right coronary artery anastomosis. INDICATIONS: V-tach, wide complex tachycardia, coronary artery disease, decompensated congestive heart failure, congestive heart failure, cardiomyopathy, coronary artery disease, status post CABG, non-STEMI. PROCEDURE: The patient was brought to the cardiac catheterization laboratory, prepped and draped in the usual sterile fashion. 10 mL of 1% lidocaine was used to locally anesthetize the right common femoral artery, a 4-American sheath placed in right common femoral artery, a 5.5-American sheath placed in the right common femoral vein. Right heart catheterization was performed first with the following findings: Pulmonary capillary wedge pressure 29/27-27. PA pressure 60/25-44. RV pressure 62/21-32. RA pressures 18/16-13. By Keith the cardiac output is 5.8 liters per minute. Cardiac index is 2.4 liters per meter2 square per minute. SVR is 1136.9 dynes. Sats on room air: FA sat 96.2%, PA sat 70.4%, RA sat 72.0%. Left heart catheterization was then performed with a 4-American, JR4, JL5 and AR1 modified catheter with the following findings: The LV pressure is 118/4-20. Ejection fraction is 30%. Left ventricle appears to be dilated, at least mild to moderately. The right coronary artery is occluded proximally. The vein graft to first obtuse marginal vessel was widely patent. The marginal vessel has a proximal bifurcation just after the graft insertion site with both branches being about 2.5 mm in diameter with no significant obstructive disease. There is retrograde filling back to the circumflex vessel, which then fills the AV groove, left circumflex and then it fills 2 distal small posterolateral arteries, which are about 0.5 mm in diameter. The HENDERSON to LAD appears atretic in the ostial proximal segment. It is occluded in the proximal mid-segment. The left main coronary artery has no significant disease angiographically. Left circumflex vessel is occluded in the proximal segment. The LAD has an ostial 70% stenosis. It has a long 70% proximal mid-stenosis. The mid-segment has a 50% stenosis at a bifurcation with a small to medium-sized diagonal vessel, which is about 2.25 to 2.5 mm vessel angiographically. The LAD is tortuous in the mid to distal segment with no obvious focal segmental stenosis. It is a transapical vessel supplying the distal inferior apical wall. The initial ACT was 170. 2000 units of heparin was given. Subsequent ACT was 170. Another 2000 units of heparin was given. The next ACT was approximately 170. It was then determined that the IV was functioning properly and that the machine may not be working right. Therefore, we did give another 2000 units of heparin and checked an ACT on a different machine. Final ACT was 340. A 6-American sheath was exchanged for the 4-American sheath. I do think it was medically necessary to do FFR of the LAD and the anastomosis of the vein graft to the right coronary artery given the V-tach, the high risk presentation with cardiomyopathy, ventricular tachycardia refractory to IV amiodarone and high risk for significant morbidity and mortality. Therefore, a 6-American XB 4.0 guide and a 0.014 [place] pressure wire was placed in the aortic root. Note: Pressure waveforms were normalized in the aortic root as the lesion location was in the ostium of the LAD. The introducer was removed. Guide catheter was thoroughly flushed with 20 mL of normal saline. We did a normalization of the pressure waveform. I then advanced the 0.014 [place] pressure wire into the distal LAD. Initial IFR was 0.88. We then placed a 4.0/9 Integrity stent at the ostium of the left anterior descending, one inflation to 16 atmospheres for 20 seconds. Stenosis went from 70% to 0% with NIKO 3 flow. I then did remove the wire. We did a second waveform normalization under normal conditions with flushing of the catheter and removal of the introducer as previously done. IFR remained at 0.88. The proximal LAD did appear to be 70% angiographically. I then placed a 4.0/18 Integrity stent at this lesion site, one inflation 16 of atmospheres for 20 seconds. Stenosis went from 70% to 0% with NIKO 3 flow. We then removed the wire to the third normalization under protocol conditions as previous, advanced the wire into the distal LAD. The IFR was still 0.88, therefore did a pullback across the area of tortuosity in the mid to distal LAD. IFR was then normal at 0.98. There was wire biasing of the very tortuous segment of the mid to distal LAD. I suspect that this was what was creating the gradient. Also, due to the extreme tortuosity of this segment, I did not feel the risk/benefit ratio favored initially stenting this segment and therefore did not perform PCI of the segment. Pullback proximal to this lesion showed an IFR 0.98 suggesting that the mid-LAD at the bifurcation with the diagonal vessel was not hemodynamically significant. The bifurcation of the diagonal vessel was about a 25-degree angle and the diagonal vessel was a medium-sized vessel. Therefore, I did think the risk/benefit ratio favored initially stenting this lesion either. We then turned our attention to the vein graft to the right coronary artery. We used a 6-American AR1 guide, placed a 0.014 [place] pressure wire into the distal graft proximal to the lesion, removed the introducer to 20 mL of normal saline flush, normalized the pressure waveforms, then advanced the 0.014 [place] pressure wire into the creek right coronary artery and right PDA. Initial IFR was 0.98. We did a 3-minute infusion of adenosine at 140 mcg/kg per minute. At about 90 seconds, the FFR dropped to 0.78. Therefore, we proceeded to direct PCI with bare metal stent of the vein graft anastomosis to the right coronary artery with a 3.0/9 Integrity stent, one inflation of 12 atmospheres for 20 seconds. The stenosis went from 70% to 0% with NIKO 3 flow. Note that after the 3 PCIs done, initial pressure was 110 systolic. Final pressure was 145 systolic. The patient's dyspnea improved as well immediately. CONCLUSION: 1. Wide complex tachycardia, thought to be ventricular tachycardia by Dr. Rivero, the implant polisher. Indeterminate culprit lesions, but the IFR of the ostial left anterior descending was 0.88, IFR of the proximal left anterior descending was 0.88 and FFR of the vein graft to right coronary anastomosis was 0.78. 2. Successful direct percutaneous coronary intervention of the ostial left anterior descending from 70% to 0% with NIKO 3 flow. 3. Successful direct percutaneous coronary intervention with bare metal stent of the proximal left anterior descending from 70% to 0% with NIKO 3 flow. 4. Successful direct percutaneous coronary intervention with bare metal stent of the vein graft to the right coronary artery from 70% to 0% with NIKO 3 flow. 5. Pullback FFR of the mid to distal very tortuous left anterior descending did show normalization of the IFR. Percutaneous coronary intervention deferred due to extreme vessel tortuosity and it appeared that there was significant vessel wire biasing which may have created a false stenosis. There was no IFR gradient of the mid left anterior descending 50% stenosis. 6. Also note that the patient had somewhat atypical anatomy; it was difficult to determine whether the vein graft to the right coronary artery anastomosis appeared to fill a right posterior descending artery and what would anatomically would be the right posterolateral artery. However, this segment, which was the stenotic area, then filled a segment that also bifurcated and appeared to demonstrate a posterior descending artery and posterolateral artery with retrograde filling of what appeared to be the right coronary artery. Note, there was partial obstruction of the questionable posterior descending artery at the vein graft anastomosis, but flow was NIKO 3 and the ostium appeared to be at about 50% stenosis. This was a 1.5-2 mm vessel. 7. Severe left ventricular systolic dysfunction, left ventricular ejection fraction of 30%. 8. Markedly elevated right heart catheterization pressures as detailed above. 9. Elevated left ventricular end-diastolic pressure equal to 20. 10. Severe three-vessel coronary artery disease with 2 of 3 grafts patent and severe stenosis in the vein graft to the right coronary artery, as detailed above. RECOMMENDATIONS: 1. Recommend Plavix 600 mg load, then 75 mg a day for 12-15 months. Aspirin 162 mg daily. Note the final activated clotting time was 340. Also 40 of intravenous Lasix was given at the end of the procedure, due to the markedly elevated right heart catheterization pressures. 2. We will continue telemetry monitoring. 3. Will defer to Dr. Rivero further evaluation for arrhythmia and antiarrhythmic therapy. Moe Hassan MD 11/09/2017 PROCEDURE: Cardioversion INDICATIONS FOR PROCEDURE: 1. Ventricular tachycardia. 2. Symptomatic ventricular tachycardia. 3. Coronary artery disease. 4. Cardiomyopathy. PROCEDURE IN DETAIL: Pads were placed in the appropriate positions. The patient was started on a heparin bolus and drip with an ACT at 212. He was given 1 mg of Versed and 50 mcg of IV fentanyl. First attempt was made at synchronized cardioversion at 100 joules. This was unsuccessful. 200 joules was unsuccessful. 300 joules was unsuccessful and finally at 360 joules, the patient cardioverted to normal sinus rhythm. Blood pressure improved from 90 systolic to 130 systolic. The patient felt much better. I attempted to call Dr. Rivero, but he was not available. Therefore, I called Dr. Greene, who recommended lidocaine drip which we initiated and also I ordered a transfer to ICU. Continue IV amiodarone. Continue IV heparin and continue electrolyte repletion p.r.n. Moe Hassan MD Medications and IVs Current Medications Adenosine (Adenocard Inj) 12 mg STK-MED ONCE .ROUTE Last administered on at 10:12; Start 11/07/17 at 10:06; Stop 11/07/17 at 10:07; Status DC Sodium Chloride 1,000 ml @ 84 mls/hr [id number] IV Last administered on at 05:46; Start 11/07/17 at 10:10; Stop 11/10/17 at 10:16; Status DC Sodium Chloride (NS Flush) 2 ml UNSCH PRN IV FLUSH FLUSH AFTER USING IV ACCESS Last administered on 11/09/17at 08:49; Start 11/07/17 at 10:15; Stop 11/09/17 at 19:49; Status DC Sodium Chloride (NS Flush) 2 ml BID IV FLUSH Last administered on 11/08/17at 08: 02; Start 11/07/17 at 21:00; Stop 11/08/17 at 16:32; Status DC Acetaminophen (Tylenol) 650 mg Q6H PRN PO PAIN 1-10 AND/OR FEVER >101F Last administered on 11/09/17at 13:58; Start 11/07/17 at 10:15 Ondansetron HCl (Zofran Odt) 4 mg Q6H PRN PO NAUSEA OR VOMITING; Start at 10:15 Metoclopramide HCl (Reglan Inj) 10 mg Q6H PRN IV PUSH NAUSEA OR VOMITING Last administered on 11/10/17at 20:11; Start 11/07/17 at 10:15 Albuterol/ Ipratropium (Duoneb Neb) 1 ampule Q2HR NEB PRN INH WHEEZING; Start 11/07/17 at 10:15 Miscellaneous Information ([facility] Nursing Information) 1 [id number] Last administered on 11/07/17at 10:15; Start 11/07/17 at 10:15 Chlorhexidine Gluconate (Chlorhexidine 2% Cloth) 3 pack Taper DAILY@04 TOP Last administered on 11/11/17at 04:00; Start 11/08/17 at 04:00; Stop 11/04/18 at 03:59 Chlorhexidine Gluconate (Chlorhexidine 2% Cloth) 3 pack UNSCH PRN TOP HYGIENIC CARE; Start 11/07/17 at 10:15 Senna/Docusate Sodium (Amna-Colace) 1 tab BID PO ; Start 11/07/17 at 21:00 Magnesium Hydroxide (Milk Of Magnesia Liq) 30 ml Q12H PRN PO Mild constipation ; Start 11/07/17 at 10:15 Sennosides (Senokot) 17.2 mg Q12H PRN PO Moderate constipation; Start 11/07/17 at 10:15 Bisacodyl (Dulcolax Supp) 10 mg DAILY PRN RECTAL SEVERE CONSITIPATION; Start at 10:15 Lactulose (Lactulose Liq) 30 ml DAILY PRN PO SEVERE CONSITIPATION; Start at 10:15 Metoprolol Tartrate (Lopressor Inj) 5 mg ONCE ONCE IV PUSH Last administered on 11/07/17at 11:12; Start 11/07/17 at 10:45; Stop 11/07/17 at 10:53; Status DC Amiodarone HCl 450 mg/Dextrose 250 ml @ 16.66 mls/ hr Q15H1M PRN IV Per Protocol; Start 11/07/17 at 14:58; Status UNV Heparin Sodium/ Dextrose 250 ml @ 0 mls/hr TITRATE PRN IV Coagulation Management; Start 11/07/17 at 15:00; Status UNV Amiodarone HCl 450 mg/Dextrose 250 ml @ 16.66 mls/ hr TITRATE PRN IV Per Protocol; Start 11/07/17 at 15:00; Status Cancel Heparin Sodium/ Dextrose 250 ml @ 10 mls/hr TITRATE PRN IV Ordered parameters Last administered on 11/08/17at 06:22; Start 11/07/17 at 15:15; Stop 11/09/17 at 14:38; Status DC Amiodarone HCl 450 mg/Sodium Chloride 250 ml @ 16.66 mls/ hr TITRATE PRN IV Per Protocol Last administered on 11/10/17at 04:00; Start 11/07/17 at 15:15; Stop 11/11/17 at 06:00; Status DC Aspirin (Ecotrin Ec) 81 mg ONCE ONCE PO Last administered on 11/07/17at 20:19; Start 11/07/17 at 20:00; Stop 11/07/17 at 20:12; Status DC Aspirin (Ecotrin Ec) 81 mg DAILY PO Last administered on 11/08/17at 08:02; Start 11/08/17 at 09:00; Stop 11/09/17 at 09:36; Status DC Melatonin (Melatonin) 5 mg HS PO Last administered on 11/10/17at 20:10; Start at 22:00 Morphine Sulfate (Morphine Inj) 2 mg Q4H PRN IV PUSH pain 8-10 or not taking po Last administered on 11/08/17at 21:46; Start 11/08/17 at 02:45 Promethazine HCl (Phenergan Inj) 12.5 mg ONCE ONCE IM Last administered on at 08:02; Start 11/08/17 at 05:45; Stop 11/08/17 at 05:46; Status DC Isoproterenol HCl 0 ml @ As Directed STK-MED ONCE IV ; Start 11/08/17 at 12:11; Stop 11/08/17 at 12:12; Status DC Heparin Sodium/ Sodium Chloride 0 ml @ As Directed STK-MED ONCE .ROUTE ; Start 11/08/17 at 12:11; Stop 11/08/17 at 12:12; Status DC Protamine Sulfate (Protamine Sulfate Inj) 50 mg STK-MED ONCE .ROUTE ; Start at 12:12; Stop 11/08/17 at 12:13; Status DC Heparin Sodium/ Dextrose 0 ml @ As Directed STK-MED ONCE .ROUTE ; Start at 12:13; Stop 11/08/17 at 12:14; Status DC Heparin Sodium/ Sodium Chloride 1,500 ml @ As Directed STK-MED ONCE .ROUTE ; Start 11/08/17 at 14:00; Stop 11/08/17 at 14:01; Status DC Midazolam HCl (Versed Inj) 2 mg STK-MED ONCE .ROUTE Last administered on at 14:24; Start 11/08/17 at 14:01; Stop 11/08/17 at 14:02; Status DC Fentanyl Citrate (fentaNYL INJ) 100 mcg STK-MED ONCE .ROUTE Last administered on 11/08/17at 14:25; Start 11/08/17 at 14:01; Stop 11/08/17 at 14:02; Status DC Adenosine (Adenoscan Inj) 90 mg STK-MED ONCE .ROUTE Last administered on at 15:30; Start 11/08/17 at 14:55; Stop 11/08/17 at 14:56; Status DC Furosemide (Lasix Inj) 40 mg STK-MED ONCE .ROUTE Last administered on at 15:46; Start 11/08/17 at 15:43; Stop 11/08/17 at 15:44; Status DC Clopidogrel Bisulfate (Plavix) 600 mg STK-MED ONCE .ROUTE ; Start 11/08/17 at 15 :48; Stop 11/08/17 at 15:49; Status DC Heparin Sodium (Porcine) (Heparin Inj) 20,000 units STK-MED ONCE .ROUTE Last administered on 11/08/17at 14:53; Start 11/08/17 at 15:58; Stop 11/08/17 at 15:59 ; Status DC Sodium Chloride (NS Flush) 2 ml UNSCH PRN IV FLUSH FLUSH AFTER USING IV ACCESS Last administered on 11/09/17at 08:49; Start 11/08/17 at 16:15 Sodium Chloride (NS Flush) 2 ml BID IV FLUSH Last administered on 11/11/17at 08: 52; Start 11/08/17 at 21:00 Aspirin (Aspirin Chew) 162 mg DAILY PO Last administered on 11/11/17at 08:51; Start 11/09/17 at 09:00 Clopidogrel Bisulfate (Plavix) 600 mg ONCE ONCE PO ; Start 11/08/17 at 16:45; Stop 11/08/17 at 16:46; Status DC Clopidogrel Bisulfate (Plavix) 75 mg DAILY PO Last administered on 11/11/17at 08: 49; Start 11/09/17 at 09:00 Miscellaneous Information 1 ONCE ONCE XX ; Start 11/08/17 at 16:15; Stop at 16:31; Status DC Iohexol (OMNIPAQUE 350 INJ ([employer])) 100 ml STK-MED ONCE OTHER ; Start at 17:18; Stop 11/08/17 at 17:19; Status DC Spironolactone (Aldactone) 25 mg DAILY PO ; Start 11/09/17 at 09:00; Status UNV Spironolactone (Aldactone) 25 mg BID@09,18 PO Last administered on 11/11/17at 08: 50; Start 11/09/17 at 20:00; Stop 11/11/17 at 09:10; Status DC Ramipril (Altace) 2.5 mg ONCE ONCE PO Last administered on 11/09/17at 08:48; Start 11/09/17 at 08:00; Stop 11/09/17 at 08:01; Status DC Ramipril (Altace) 2.5 mg DAILY PO Last administered on 11/11/17at 08:51; Start at 09:00 Carvedilol (Coreg) 3.125 mg ONCE ONCE PO Last administered on 11/09/17at 08:48 ; Start 11/09/17 at 08:00; Stop 11/09/17 at 08:01; Status DC Carvedilol (Coreg) 3.125 mg Q12HR PO ; Start 11/09/17 at 21:00; Stop 11/09/17 at 21:00; Status DC Heparin Sodium/ Dextrose 250 ml @ 18 mls/hr TITRATE PRN IV Coagulation Management Last administered on 11/09/17at 14:51; Start 11/09/17 at 15:00 Heparin Sodium (Porcine) (Heparin Inj) 5,000 units UNSCH PRN IV PUSH aPTT less than 25; Start 11/09/17 at 14:45 Heparin Sodium (Porcine) (Heparin Inj) 2,500 units UNSCH PRN IV PUSH aPTT 25 to 39; Start 11/09/17 at 14:45 Heparin Sodium (Porcine) (Heparin Inj) 9,000 units ONCE ONCE IV Last administered on 11/09/17at 14:52; Start 11/09/17 at 15:00; Stop 11/09/17 at 15:01 ; Status DC Lidocaine HCl (Xylocaine 2% Inj) 100 mg STAT ONCE IV PUSH Last administered on 11/09/17at 15:14; Start 11/09/17 at 15:15; Stop 11/09/17 at 15:16; Status DC Fentanyl Citrate (fentaNYL INJ) 100 mcg STK-MED ONCE .ROUTE ; Start 11/09/17 at 15:49; Stop 11/09/17 at 15:50; Status DC Midazolam HCl (Versed Inj) 5 mg STK-MED ONCE .ROUTE ; Start 11/09/17 at 15:49; Stop 11/09/17 at 15:50; Status DC Fentanyl Citrate (fentaNYL INJ) 25 mcg ONCE ONCE IV PUSH Last administered on 11/09/17at 15:41; Start 11/09/17 at 15:41; Stop 11/09/17 at 16:33; Status DC Midazolam HCl (Versed Inj) 1 mg NOW ONCE IV PUSH Last administered on at 15:41; Start 11/09/17 at 15:41; Stop 11/09/17 at 16:33; Status DC Lidocaine HCl/ Dextrose 500 ml @ 30 mls/hr [id number] IV Last administered on at 18:01; Start 11/09/17 at 16:45; Stop 11/10/17 at 10:31; Status DC Fentanyl Citrate (fentaNYL INJ) 50 mcg NOW ONCE IV Last administered on at 16:25; Start 11/09/17 at 16:25; Stop 11/09/17 at 16:35; Status DC Magnesium Sulfate/ Dextrose 100 ml @ 100 mls/hr Q1H IV Last administered on at 22:17; Start 11/09/17 at 20:00; Stop 11/09/17 at 21:59; Status DC Potassium Chloride (KCl) 30 meq ONCE ONCE PO Last administered on 11/09/17at 20 :50; Start 11/09/17 at 20:00; Stop 11/09/17 at 20:01; Status DC Calcium Gluconate 1 gm/Sodium Chloride 110 ml @ 110 mls/hr ONCE ONCE IV Last administered on 11/10/17at 01:16; Start 11/09/17 at 22:00; Stop 11/09/17 at 22:59 ; Status DC Potassium Phosphate 30 mmol/ Sodium Chloride 260 ml @ 43.333 mls/ hr ONCE ONCE IV Last administered on 11/10/17at 09:39; Start 11/10/17 at 10:00; Stop at 15:59; Status DC Potassium Bicarbonate (Effer-K Eff) 50 meq ONCE ONCE PO Last administered on at 12:43; Start 11/10/17 at 11:00; Stop 11/10/17 at 11:01; Status DC Potassium Chloride (KCl) 60 meq ONCE ONCE PO Last administered on 11/10/17at 12 :43; Start 11/10/17 at 10:45; Stop 11/10/17 at 10:46; Status DC Furosemide (Lasix Inj) 10 mg NOW ONCE IV PUSH Last administered on 11/10/17at 12:42; Start 11/10/17 at 12:00; Stop 11/10/17 at 12:01; Status DC Mexiletine HCl (Mexitil) 200 mg TID PO Last administered on 11/11/17at 12:55; Start 11/10/17 at 13:00 Amiodarone HCl (Cordarone) 200 mg TID PO Last administered on 11/11/17at 12:55; Start 11/11/17 at 09:00 Spironolactone (Aldactone) 50 mg BID@09,18 PO ; Start 11/11/17 at 18:00 Magnesium Oxide (Mag-Ox) 400 mg ONCE ONCE PO Last administered on 11/11/17at 10: 10; Start 11/11/17 at 09:15; Stop 11/11/17 at 09:23; Status DC Magnesium Oxide (Mag-Ox) 400 mg Q12HR PO ; Start 11/11/17 at 21:00 Potassium Phosphate 30 mmol/ Sodium Chloride 260 ml @ 43.333 mls/ hr ONCE ONCE IV Last administered on 11/11/17at 10:10; Start 11/11/17 at 10:00; Stop at 15:59 A/P Assessment and Plan Assessment and Plan 57-year-old male with : Tachyarrhythmia: SVT versus slow V. tach CAD Ischemic cardiomyopathy History of A. fib History of CABG/Maze procedure History of ICD placement Status post cardiac catheterization was bare-metal stent to the LAD and saphenous vein graft HYPOKALEMIA WILL REPLACE HYPOMAG WILL REPLACE SP CARDIOVERSION ON11-09 HAS HAD AICD SETTINGS ADJUSTED Plan: Neuro: Follow neuro status. avoid sedatives and narcotics. Cardiovascular: Started on heparin for anticoagulation and amiodarone gtt. following bolus. Did not respond with adenosine 12 mg IV with absolutely no change in heart rate raising concern for accessory pathway SVT versus slow V. tach. Discussed with Dr. Moe Hassan from cardiology. EP consulted per Dr. Hassan. Patient reportedly converted to sinus rhythm and Dr. Hassan is planning cardiac catheterization. Remains on amiodarone drip Pulmonary: Supplemental O2. GI/liver: Continue cardiac diet Renal/: IV hydration, strict intake output, monitor and replete electrolytes, follow BUN/creatinine. ID: No indication for antibiotics at this time. Heme: On anticoagulation with heparin. Endocrine: Watch for hyperglycemia, SSI for glycemic control if needed Prophylaxis: On heparin for full anticoagulation. No indication for GI prophylaxis at this time. Is being followed by ELECTROPHYSIOLOGY Further recommendations per Dr. Moe Hassan. Discussed current clinical status with patient and updated regarding plan of care and he voiced understanding and was agreeable. Patient will be transferred to hospitalist service for further medical management as he has converted out of this tachyarrhythmia. Discharge Planning PENDING CARDIAC CLEARANCE Tramaine Mensah DO Nov 11, 2017 14:25
[2017-11-11] MEDS: SPIRONOLACTONE 50 MG TAB PO SCH (16:58)
[2017-11-11] MEDS ORDERED: AMIODARONE 200 MG TAB PO ONE (17:00)
[2017-11-11] MEDS: MORPHINE SULFATE 4 MG/ML INJ IV PUSH PRN (19:56)
[2017-11-11] MEDS: MAGNESIUM OXIDE 400 MG TAB PO SCH (19:57)
[2017-11-11] MEDS: MELATONIN 5 MG TAB PO SCH (20:02)
[2017-11-11] MEDS: SACUBITRIL/VALSARTAN 24 MG-26 MG TAB PO SCH (21:22)
[2017-11-11] MEDS: ALPRAZolam 0.5 MG TAB PO PRN (21:22)
[2017-11-12] VITALS (25 sets, daily range): BP systolic 116–144; BP diastolic 77–89; PULSE 70–84; RESP 16–20; TEMP 98.2–98.9; O2SAT 96–100
[2017-11-12] MEDS: CHLORHEXIDINE GLUCONATE 2 % 1 PACK (2 CLOTHS) TOP SCH (04:00)
[2017-11-12] MEDS: ACETAMINOPHEN 325 MG TAB PO PRN (04:02)
[2017-11-12] MEDS: ALPRAZolam 0.5 MG TAB PO PRN ×2 (05:21→20:03)
[2017-11-12 05:44] LABS: AUTOMATED NEUTROPHIL # 5.1 TH/MM3 (1.8-7.7); BASOPHIL % 0.5 % (0.0-2.0); EOSINOPHIL # 0.3 TH/MM3 (0-0.4); EOSINOPHIL % 4.4 % (0.0-4.0); HEMATOCRIT 40.8 % (39.0-51.0); LYMPH % 14.1 % (9.0-44.0); MEAN CELL VOLUME 98.8 FL (80.0-100.0); MEAN CORPUSCULAR HEMOGLOBIN 33.8 PG (27.0-34.0); MEAN CORPUSCULAR HGB CONC 34.2 % (32.0-36.0); MEAN PLATELET VOLUME 9.3 FL (7.0-11.0); MONO % 12.1 % (0.0-8.0); MONOCYTE # 0.9 TH/MM3 (0-0.9); NEUT % 68.9 % (16.0-70.0); PLATELET COUNT 158 TH/MM3 (150-450); RED BLOOD COUNT 4.13 MIL/MM3 (4.50-5.90); RED CELL DISTRIBUTION WIDTH 13.8 % (11.6-17.2); WHITE BLOOD COUNT 7.4 TH/MM3 (4.0-11.0)
[2017-11-12 05:56] LABS: ALBUMIN 3.4 GM/DL (3.4-5.0); AST (GOT) 38 U/L (15-37); BICARBONATE 23.9 MEQ/L (21.0-32.0); BLOOD UREA NITROGEN 14 MG/DL (7-18); CALCIUM 8.5 MG/DL (8.5-10.1); CHLORIDE 104 MEQ/L (98-107); CREATININE 0.94 MG/DL (0.60-1.30); GLOMERULAR FILTRATION RATE 83 ML/MIN (>89); GLUCOSE,RANDOM 98 MG/DL (74-106); MAGNESIUM 2.2 MG/DL (1.5-2.5); SODIUM (NA) 138 MEQ/L (136-145)
[2017-11-12 05:58] LABS: ALT (GPT) 115 U/L (12-78); PHOSPHORUS 4.7 MG/DL (2.5-4.9)
[2017-11-12 06:01] LABS: ALKALINE PHOSPHATASE 109 U/L (45-117); TOTAL BILIRUBIN ADULT 0.6 MG/DL (0.2-1.0); TOTAL PROTEIN 7.4 GM/DL (6.4-8.2)
[2017-11-12] MEDS: DOCUSATE SODIUM 50 MG/SENNA 8.6 MG TAB PO SCH ×2 (08:34→20:03)
[2017-11-12] MEDS: ASPIRIN 81 MG CHEW TAB PO SCH (08:34)
[2017-11-12] MEDS: SACUBITRIL/VALSARTAN 24 MG-26 MG TAB PO SCH ×2 (08:34→20:03)
[2017-11-12] MEDS: CLOPIDOGREL 75 MG TAB PO SCH (08:34)
[2017-11-12] MEDS: SPIRONOLACTONE 50 MG TAB PO SCH ×2 (08:34→17:17)
[2017-11-12] MEDS: MEXILETINE HCL 200 MG CAP PO SCH ×3 (08:34→17:17)
[2017-11-12] MEDS: AMIODARONE 200 MG TAB PO SCH ×3 (08:35→17:17)
[2017-11-12] MEDS: MAGNESIUM OXIDE 400 MG TAB PO SCH ×2 (08:39→20:03)
[2017-11-12] MEDS: SODIUM CHLORIDE 0.9% FLUSH 10 ML FLUSH IV FLUSH SCH ×2 (09:00→20:04)
--- NOTE | 2017-11-12 12:00 | PD.CARD.PN ---
Subjective Subjective Remarks alert in nad Objective Medications Current Medications Medications (Trade) Dose Ordered Sig/Janneth Route Start Time Stop Time Status Last Admin (Tylenol) 650 mg Q6H PRN PO 11/07/17 10:15 11/12/17 04:02 (Zofran Odt) 4 mg Q6H PRN PO 11/07/17 10:15 (Reglan Inj) 10 mg Q6H PRN IV PUSH 11/07/17 10:15 11/10/17 20:11 (Duoneb Neb) 1 ampule Q2HR NEB PRN INH 11/07/17 10:15 ([facility]) 1 [id number] XX 11/07/17 10:15 11/07/17 10:15 (Chlorhexidine 2% Cloth) 3 pack Taper DAILY@04 TOP 11/08/17 04:00 11/04/18 03:59 11/11/17 04:00 (Chlorhexidine 2% Cloth) 3 pack UNSCH PRN TOP 11/07/17 10:15 (Amna-Colace) 1 tab BID PO 11/07/17 21:00 11/12/17 08:34 (Milk Of Magnesia Liq) 30 ml Q12H PRN PO 11/07/17 10:15 (Senokot) 17.2 mg Q12H PRN PO 11/07/17 10:15 (Dulcolax Supp) 10 mg DAILY PRN RECTAL 11/07/17 10:15 (Lactulose Liq) 30 ml DAILY PRN PO 11/07/17 10:15 (Melatonin) 5 mg HS PO 11/07/17 22:00 11/11/17 20:02 (Morphine Inj) 2 mg Q4H PRN IV PUSH 11/08/17 02:45 11/11/17 19:56 (NS Flush) 2 ml UNSCH PRN IV FLUSH 11/08/17 16:15 11/09/17 08:49 (NS Flush) 2 ml BID IV FLUSH 11/08/17 21:00 11/12/17 09:00 (Aspirin Chew) 162 mg DAILY PO 11/09/17 09:00 11/12/17 08:34 (Plavix) 75 mg DAILY PO 11/09/17 09:00 11/12/17 08:34 (Mexitil) 200 mg TID PO 11/10/17 13:00 11/12/17 08:34 (Aldactone) 50 mg BID@,18 PO 11/11/17 18:00 11/12/17 08:34 (Mag-Ox) 400 mg Q12HR PO 11/11/17 21:00 11/12/17 08:39 (Cordarone) 400 mg TID PO 11/12/17 09:00 11/12/17 08:35 (Entresto 24-26 Mg) 1 tab BID PO 11/11/17 21:00 11/12/17 08:34 (Xanax) 0.5 mg Q8H PRN PO 11/11/17 20:45 11/12/17 05:21 Vital Signs / I&O Vital Signs Date Time Temp Pulse Resp B/P (MAP) Pulse Ox O2 Delivery O2 Flow Rate FiO2 11/12/17 11:00 74 11/12/17 11:00 98.6 82 16 136/89 (105) 98 11/12/17 10:00 72 11/12/17 09:00 74 11/12/17 08:00 70 11/12/17 07:45 71 11/12/17 07:45 Room Air 11/12/17 07:45 98.6 74 16 144/82 (102) 98 11/12/17 06:00 75 11/12/17 05:00 73 11/12/17 04:00 Nasal Cannula 2.00 11/12/17 04:00 74 11/12/17 04:00 98.8 74 18 132/85 (101) 96 11/12/17 03:00 72 11/12/17 02:00 84 11/12/17 01:00 77 11/12/17 00:00 72 11/12/17 00:00 98.3 72 20 124/80 (95) 96 11/11/17 23:00 80 11/11/17 22:35 98 Nasal Cannula 2.00 11/11/17 22:00 84 11/11/17 21:00 81 11/11/17 20:00 98.7 79 22 157/98 (117) 97 11/11/17 20:00 79 11/11/17 18:00 84 11/11/17 17:00 82 11/11/17 16:00 148 11/11/17 15:00 97.9 82 16 98 I/O 11/11/17 11/11/17 11/11/17 11/12/17 11/12/17 11/12/17 07:00 15:00 23:00 07:00 15:00 23:00 Intake Total 678 ml 400 ml 480 ml Output Total 1300 ml 1650 ml 700 ml 1200 ml Balance -622 ml -1250 ml -700 ml -720 ml Intake Oral 480 ml 400 ml 480 ml IV Total 198 ml Output Urine Total 1300 ml 1650 ml 700 ml 1200 ml # Voids 3 # Bowel Movements 1 0 Physical Exam GENERAL: SKIN: Warm and dry. HEAD: Normocephalic. EYES: No scleral icterus. No injection or drainage. NECK: Supple, trachea midline. No JVD or lymphadenopathy. CARDIOVASCULAR: Regular rate and rhythm without murmurs, gallops, or rubs. RESPIRATORY: Breath sounds equal bilaterally. No accessory muscle use. GASTROINTESTINAL: Abdomen soft, non-tender, nondistended. MUSCULOSKELETAL: No cyanosis, or edema. BACK: Nontender without obvious deformity. No CVA tenderness. Laboratory Laboratory Tests Test 11/12/17 05:09 White Blood Count 7.4 TH/MM3 Red Blood Count 4.13 MIL/MM3 Hemoglobin 14.0 GM/DL Hematocrit 40.8 % Mean Corpuscular Volume 98.8 FL Mean Corpuscular Hemoglobin 33.8 PG Mean Corpuscular Hemoglobin Concent 34.2 % Red Cell Distribution Width 13.8 % Platelet Count 158 TH/MM3 Mean Platelet Volume 9.3 FL Neutrophils (%) (Auto) 68.9 % Lymphocytes (%) (Auto) 14.1 % Monocytes (%) (Auto) 12.1 % Eosinophils (%) (Auto) 4.4 % Basophils (%) (Auto) 0.5 % Neutrophils # (Auto) 5.1 TH/MM3 Lymphocytes # (Auto) 1.0 TH/MM3 Monocytes # (Auto) 0.9 TH/MM3 Eosinophils # (Auto) 0.3 TH/MM3 Basophils # (Auto) 0.0 TH/MM3 CBC Comment DIFF FINAL Differential Comment Blood Urea Nitrogen 14 MG/DL Creatinine 0.94 MG/DL Random Glucose 98 MG/DL Total Protein 7.4 GM/DL Albumin 3.4 GM/DL Calcium Level 8.5 MG/DL Phosphorus Level 4.7 MG/DL Magnesium Level 2.2 MG/DL Alkaline Phosphatase 109 U/L Aspartate Amino Transf (AST/SGOT) 38 U/L Alanine Aminotransferase (ALT/SGPT) 115 U/L Total Bilirubin 0.6 MG/DL Sodium Level 138 MEQ/L Potassium Level 3.8 MEQ/L Chloride Level 104 MEQ/L Carbon Dioxide Level 23.9 MEQ/L Anion Gap 10 MEQ/L Estimat Glomerular Filtration Rate 83 ML/MIN B-Type Natriuretic Peptide 276 PG/ML Assessment and Plan Problem List: (1) CAD (coronary artery disease) ICD Codes: I25.10 - Atherosclerotic heart disease of [place] coronary artery without angina pectoris (2) S/P CABG x 3 ICD Codes: Z95.1 - Presence of aortocoronary bypass graft (3) Cardiomyopathy ICD Codes: I42.9 - Cardiomyopathy, unspecified (4) ICD (implantable cardioverter-defibrillator) battery depletion ICD Codes: Z45.02 - Encounter for adjustment and management of automatic implantable cardiac defibrillator (5) CHF (congestive heart failure) ICD Codes: I50.9 - Heart failure, unspecified (6) Dyspnea ICD Codes: R06.00 - Dyspnea, unspecified (7) Palpitations ICD Codes: R00.2 - Palpitations (8) Tobacco abuse ICD Codes: Z72.0 - Tobacco use (9) Wide-complex tachycardia ICD Codes: I47.2 - Ventricular tachycardia (10) Ventricular tachycardia ICD Codes: I47.2 - Ventricular tachycardia Assessment and Plan 1.) Ventricular tachycardia - VT appears to be nonischemic in origin as he is completely revascularized 11/08/17; replete electrolytes prn; remains in narrow complex nsr s/p cardioversion with synchronized 360 j 11/09/17, lidocaine drip discontinued by Dr Marina, started on po mexilitine and amiodarone per Dr Marina, icd threshold changed to 150 bpm with atp pre shock algorhythm, s/p atp x 2 last evening, d/w Dr Marina, Dr Marina rec continue current meds 2.) CAD - continue aspirin, plavix, statin held due to increased lfts 3.) Cardiomyopathy - continue altace, increase aldactone 50 mg bid, add magnesium, lasix, f/u bnp/bmp; there is uncertainty of his ability to tolerate beta blockers has he developed hypotension and diaphoresis with administration of 5 mg iv lopressor and recurrent vt occurred @ 2-3 hours after he was given coreg 3.125 mg po, so i have discontinued coreg and will defer risks and benefits of beta leigh use to EP; entresto added, f/u bnp, bmp in am, d/w patient and nurse Moe Hassan MD Nov 12, 2017 12:00
--- NOTE | 2017-11-12 14:46 | HHI.PR ---
Subjective Remarks Pt seen and examined. AFVSS. No acute events overnight. Reports he is feeling well and has had no further events. Denies CP, SOB, abdominal pain, N/V. Only complaint is back pain from laying around in hospital bed. Trying to move around the room and sit up in chair. Anxious to be able to go home. Objective Vital Signs Date Time Temp Pulse Resp B/P (MAP) Pulse Ox O2 Delivery O2 Flow Rate FiO2 11/12/17 11:00 74 11/12/17 11:00 98.6 82 16 136/89 (105) 98 11/12/17 10:00 72 11/12/17 09:00 74 11/12/17 08:00 70 11/12/17 07:45 71 11/12/17 07:45 Room Air 11/12/17 07:45 98.6 74 16 144/82 (102) 98 11/12/17 07:45 96 Nasal Cannula 2.00 11/12/17 06:00 75 11/12/17 05:00 73 11/12/17 04:00 Nasal Cannula 2.00 11/12/17 04:00 74 11/12/17 04:00 98.8 74 18 132/85 (101) 96 11/12/17 03:00 72 11/12/17 02:00 84 11/12/17 01:00 77 11/12/17 00:00 72 11/12/17 00:00 98.3 72 20 124/80 (95) 96 11/11/17 23:00 80 11/11/17 22:35 98 Nasal Cannula 2.00 11/11/17 22:00 84 11/11/17 21:00 81 11/11/17 20:00 98.7 79 22 157/98 (117) 97 11/11/17 20:00 79 11/11/17 18:00 84 11/11/17 17:00 82 11/11/17 16:00 148 11/11/17 15:00 97.9 82 16 98 I/O 11/11/17 11/11/17 11/11/17 11/12/17 11/12/17 11/12/17 07:00 15:00 23:00 07:00 15:00 23:00 Intake Total 678 ml 400 ml 480 ml Output Total 1300 ml 1650 ml 700 ml 1200 ml Balance -622 ml -1250 ml -700 ml -720 ml Intake Oral 480 ml 400 ml 480 ml IV Total 198 ml Output Urine Total 1300 ml 1650 ml 700 ml 1200 ml # Voids 3 # Bowel Movements 1 0 Result Diagram: 11/12/17 0509 11/12/17 0509 Objective Remarks GENERAL: WN, WD male resting in bed in NAD. SKIN: Warm and dry. HEENT: AT/NC. Pupils equal and round. MMM. NECK: Supple no tender LAD or JVD. HEART: RRR no m/r/g. LUNGS: CTAB without wheezes or crackles. ABDOMEN: +BS, soft, NT, ND. EXTREMITIES: No LE edema. NEURO: Awake and alert. Nonfocal. PSYCH: Appropriate mood and affect. A/P Assessment and Plan 57 YOWM with history of CAD, AFIB, CHF, and AICD admitted 11/07 after being transferred from the ER in [facility] for tachyarrhythmia despite adenosine 12 mg IV and amiodarone gtt. V TACH CAD Cardiomyopathy A FIB AICD - Cardiology and EP consulted - Required cardioversion 11/09, s/p discontinuation of lidocaine drip - Started on mexilitine and amiodarone per Dr. Marina - Had AICD settings adjusted with [facility] - s/p cardiac cath 11/08 with PCI of LAD and RCA with BMS. He was also found to have wide complex tachycardia thought to be ventricular tachycardia, severe LV systolic dysunfction with EF 30%, markedly elevated right heart cath pressure, and severe 3V CAD with 2 of 3 grafts patent - Continue ASA and Plavix - Continue magnesium - Continue spironolactone - Statin held secondary to increased LFTs - Caution with BBs as patient developed hypotension and diaphoresis - Monitor on telemetry Elevated LFTs - Check hepatitis panel Allergic rhinitis - Start Flonase DVT prophylaxis: Heparin SQ Discharge Planning Once cleared by cardiology, possibly tomorrow Leia Brown MD Nov 12, 2017 14:46
[2017-11-12] MEDS: MELATONIN 5 MG TAB PO SCH (20:03)
[2017-11-12] MEDS: FLUTICASONE PROPIONATE 50 MCG/ACT 16 GM NASAL SPRAY NASAL SCH (20:15)
[2017-11-12] MEDS: HEPARIN SODIUM - SQ 10,000 UNITS/ML VIAL SQ SCH (20:18)
[2017-11-13] VITALS (15 sets, daily range): BP systolic 103–133; BP diastolic 68–81; PULSE 69–86; RESP 16–18; TEMP 98–98.9; O2SAT 97–100
[2017-11-13] MEDS: CHLORHEXIDINE GLUCONATE 2 % 1 PACK (2 CLOTHS) TOP SCH (04:00)
[2017-11-13 04:19] LABS: HEMATOCRIT 43.6 % (39.0-51.0); HEMOGLOBIN 14.9 GM/DL (13.0-17.0); MEAN CELL VOLUME 98.1 FL (80.0-100.0); MEAN CORPUSCULAR HEMOGLOBIN 33.6 PG (27.0-34.0); MEAN CORPUSCULAR HGB CONC 34.2 % (32.0-36.0); MEAN PLATELET VOLUME 9.7 FL (7.0-11.0); PLATELET COUNT 199 TH/MM3 (150-450); RED BLOOD COUNT 4.44 MIL/MM3 (4.50-5.90); RED CELL DISTRIBUTION WIDTH 13.2 % (11.6-17.2); WHITE BLOOD COUNT 7.5 TH/MM3 (4.0-11.0)
[2017-11-13 04:39] LABS: CALCIUM 8.6 MG/DL (8.5-10.1); CREATININE 0.91 MG/DL (0.60-1.30); MAGNESIUM 2.3 MG/DL (1.5-2.5)
[2017-11-13] MEDS: ALPRAZolam 0.5 MG TAB PO PRN (05:28)
[2017-11-13] MEDS: MAGNESIUM OXIDE 400 MG TAB PO SCH (08:43)
[2017-11-13] MEDS: DOCUSATE SODIUM 50 MG/SENNA 8.6 MG TAB PO SCH (08:43)
[2017-11-13] MEDS: CLOPIDOGREL 75 MG TAB PO SCH (08:43)
[2017-11-13] MEDS: ASPIRIN 81 MG CHEW TAB PO SCH (08:43)
[2017-11-13] MEDS: MEXILETINE HCL 200 MG CAP PO SCH ×2 (08:43→11:41)
[2017-11-13] MEDS: AMIODARONE 200 MG TAB PO SCH ×2 (08:43→11:41)
[2017-11-13] MEDS: SACUBITRIL/VALSARTAN 24 MG-26 MG TAB PO SCH (08:44)
[2017-11-13] MEDS: FLUTICASONE PROPIONATE 50 MCG/ACT 16 GM NASAL SPRAY NASAL SCH (08:44)
[2017-11-13] MEDS: SPIRONOLACTONE 50 MG TAB PO SCH (08:44)
[2017-11-13] MEDS: SODIUM CHLORIDE 0.9% FLUSH 10 ML FLUSH IV FLUSH SCH (08:44)
[2017-11-13] MEDS: HEPARIN SODIUM - SQ 10,000 UNITS/ML VIAL SQ SCH (09:00)
[2017-11-13] MEDS ORDERED: PLAV75TA29 PO (11:34)
[2017-11-13] MEDS ORDERED: ALDA50TA2 PO (11:34)
[2017-11-13] MEDS ORDERED: MAGN400T2 PO (11:34)
[2017-11-13] MEDS ORDERED: ASPI81 PO (11:34)
[2017-11-13] MEDS ORDERED: SACU1TAB PO (11:34)
[2017-11-13] MEDS ORDERED: ALPR.5 PO (11:34)
[2017-11-13] MEDS ORDERED: AMIO200T PO (11:34)
--- NOTE | 2017-11-13 11:34 | HHI.DCPOC ---
Discharge Care Plan Diagnosis: (1) Ventricular tachycardia (2) Cardiomyopathy (3) CHF (congestive heart failure) Goals to Promote Your Health * To prevent worsening of your condition and complications * To maintain your health at the optimal level Directions to Meet Your Goals Take your medications as prescribed Follow your dietary instruction Follow activity as directed Keep your appointments as scheduled Take your immunizations and boosters as scheduled If your symptoms worsen call your PCP, if no PCP go to Urgent Care Center or Emergency Room Smoking is Dangerous to Your Health. Avoid second hand smoke Call the 24-hour hour crisis hotline for domestic abuse at Leia Brown MD Nov 13, 2017 11:34
--- NOTE | 2017-11-13 11:41 | HHI.DS ---
Discharge Summary Admission Date November 07, 2017 at 09:37 Discharge Date: Nov 13, 2017 Admitting Diagnosis SVT, SVT vs. slow VTACH (1) CAD (coronary artery disease) ICD Code: I25.10 - Atherosclerotic heart disease of [place] coronary artery without angina pectoris (2) CHF (congestive heart failure) ICD Code: I50.9 - Heart failure, unspecified (3) Cardiomyopathy ICD Code: I42.9 - Cardiomyopathy, unspecified (4) Ventricular tachycardia ICD Code: I47.2 - Ventricular tachycardia Procedures 11/08/2017 Right heart catheterization, left heart catheterization, left ventriculography, coronary angiography, saphenous vein angiography, HENDERSON angiography, IFR of the ostial LAD, IFR of the proximal LAD, IFR of the distal LAD and mid-LAD with pullback IFR of the distal and mid-LAD, direct PCI with bare metal stent in the ostial LAD, direct PCI with bare-metal stent in the proximal LAD, FFR of the vein graft to the right coronary artery and direct PCI with bare metal stent of the vein graft to the right coronary artery anastomosis. Brief History - From Admission History of Present Illness HPI This is a 57-year-old male who has a history of coronary artery disease status post CABG with a reduced ejection fraction of 30% and an AICD who presents to the emergency department with palpitations that started overnight, constant, severe, associated with some shortness of breath. He denies any chest discomfort. He says his AICD is set to fire at 220. He has never had symptoms like this before. He does not take any medications and does not currently follow with a development and planning engineer. One month ago he was evaluated in our chest pain center and had a normal stress test. He later developed shingles which was the etiology of his pain. Patient was evaluated in the ER at the [place]. He received adenosine 12 mg IV with no change in his heart rate. He was diagnosed to be in slow V. tach. Dr. Hassan from cardiology was contacted by ER physician and recommended transferring patient to the main hospital after being initiated on heparin and amiodarone drips. Patient was accepted for admission by critical care medicine service. I evaluated the patient immediately on his arrival to the ICU. At the time of my evaluation patient was resting in bed with a heart rate in the 180s however did not appear to be in any acute distress. He did complain of palpitations however denies any chest pain. He did have minimal shortness of breath at the time. Patient was on heparin and amiodarone drips. Adenosine 12 mg IV push was administered with 12-lead EKG running. Patient had absolutely no change in his heart rate which was at 188 bpm. His ICD was interrogated by ICD rep. It was reading the rhythm as SVT however there was limited data as patient was still in the acute episode per ICD rep. I spoke with Dr. Hassan personally evaluating patient and he recommended attempting Lopressor 5 mg IV for rate control PFSH Past Medical History Atrial Fibrillation: Yes Cardiovascular Problems: Yes (CAD, AFIB) Coronary Artery Disease: Yes Myocardial Infarction: Yes (X2) Past Surgical History AICD: Yes Cardiac Surgery: Yes (ABLATION, AICD) Coronary Artery Bypass Graft: Yes (X3) Social History Alcohol Use: Yes Tobacco Use: Yes (CIGARS OCCASIONALLY) Substance Use: No Allergies-Medications (Allergen,Severity, Reaction): Coded Allergies: No Known Allergies (Verified Allergy, Unknown, 11/07/17) Reported Meds & Prescriptions Reported Meds & Active Scripts Active No Active Prescriptions or Reported Medications Review of Systems Except as stated in HPI: all other systems reviewed are Neg Physical Exam Narrative GENERAL:Well appearing, no acute distress SKIN: Focused skin assessment warm and dry. HEAD: Atraumatic. Normocephalic. EYES: Pupils equal and round. No injection or drainage. ENT: Moist mucous membranes NECK: Trachea midline. CARDIOVASCULAR: Tachycardic. No murmur appreciated. RESPIRATORY: Clear to auscultation. Breath sounds equal bilaterally. GASTROINTESTINAL: Abdomen soft, non-tender, nondistended. MUSCULOSKELETAL: No obvious deformities. NEUROLOGICAL: Awake and alert. No obvious cranial nerve deficits. Moving all extremities. PSYCHIATRIC: Appropriate mood and affect; insight and judgment normal. CBC/BMP: 11/13/17 0408 11/13/17 0408 Significant Findings Laboratory Tests Test 11/11/17 04:04 11/12/17 05:09 11/12/17 19:47 11/13/17 04:08 Red Blood Count 3.83 MIL/MM3 (4.50-5.90) 4.13 MIL/MM3 (4.50-5.90) 4.44 MIL/MM3 (4.50-5.90) Hematocrit 38.0 % (39.0-51.0) Monocytes (%) (Auto) 10.8 % (0.0-8.0) 12.1 % (0.0-8.0) Monocytes # (Auto) 1.0 TH/MM3 (0-0.9) Albumin 3.2 GM/DL (3.4-5.0) Calcium Level 8.2 MG/DL (8.5-10.1) Phosphorus Level 2.3 MG/DL (2.5-4.9) Alkaline Phosphatase 121 U/L (45-117) Aspartate Amino Transf (AST/SGOT) 59 U/L (15-37) 38 U/L (15-37) Alanine Aminotransferase (ALT/SGPT) 151 U/L (12-78) 115 U/L (12-78) Estimat Glomerular Filtration Rate 85 ML/MIN (>89) 83 ML/MIN (>89) 86 ML/MIN (>89) B-Type Natriuretic Peptide 606 PG/ML (0-100) 276 PG/ML (0-100) Eosinophils (%) (Auto) 4.4 % (0.0-4.0) PE at Discharge GENERAL: Awake alert and oriented 3 talkative and cooperative SKIN: Warm and dry. HEAD: Atraumatic. Normocephalic. EYES: Pupils equal and round. No scleral icterus. No injection or drainage. Extraocular muscles intact ENT: No nasal bleeding or discharge. Mucous membranes pink and moist. Tongue is midline NECK: Trachea midline. No JVD. Supple CARDIOVASCULAR: IRRegular rate and rhythm. S1-S2 no S3 or S4 RESPIRATORY: No accessory muscle use. Clear to auscultation. Breath sounds equal bilaterally. GASTROINTESTINAL: Abdomen soft, non-tender, nondistended. Hepatic and splenic margins not palpable. MUSCULOSKELETAL: Extremities without clubbing, cyanosis, or edema. No obvious deformities. Right groin catheterization site is stable NEUROLOGICAL: Awake and alert. No obvious cranial nerve deficits. Motor grossly within normal limits. Five out of 5 muscle strength in the arms and legs. Normal speech. PSYCHIATRIC: Appropriate mood and affect; insight and judgment normal. Pt update on day of discharge Pt reports feeling symptom free and ready to go. States Flonase greatly helped his post-nasal drip and cough. Denies CP, palpitations, SOB, N/V. Requests Rx for Xanax on discharge as it helped him sleep and calm down. Hospital Course 57 YOWM with history of CAD, AFIB, CHF, and AICD admitted 11/07 after being transferred from the ER in [place] for tachyarrhythmia despite adenosine 12 mg IV and amiodarone gtt. V TACH CAD Cardiomyopathy A FIB AICD - Cardiology and EP consulted - Required cardioversion 11/09 and lidocaine drip - Started on amiodarone per Dr. Marina - Had AICD settings adjusted with [facility] - s/p cardiac cath 11/08 with PCI of LAD and RCA with BMS. He was also found to have wide complex tachycardia thought to be ventricular tachycardia, severe LV systolic dysunfction with EF 30%, markedly elevated right heart cath pressure, and severe 3V CAD with 2 of 3 grafts patent - Continue ASA and Plavix - Continue magnesium - Continue spironolactone - Statin held secondary to increased LFTs, hepatitis profile negative - Caution with BBs as patient developed hypotension and diaphoresis He was cleared by cardiology and discharged in stable condition on 11/13. Pt Condition on Discharge: Stable Discharge Disposition: Discharge Home Discharge Time: <= 30 minutes Discharge Instructions DIET: Follow Instructions for: Heart Healthy Diet Activities you can perform: Regular-No Restrictions, Shower Only-No Bath, See Additionl Instruction Other Activity Instructions: No heavy lifting x 1 week Follow up Referrals: Cardiology - 2-3 Days with Solo Phillips MD PCP Follow-up - 1 Week New Medications: Alprazolam (Xanax) 0.5 Mg Tab 0.5 MG PO HS PRN for anxiety, #7 TAB Amiodarone (Amiodarone) 200 Mg Tab 400 MG PO TID for Regulate Heart Beat, #90 TAB Aspirin (Tgt Aspirin) 81 Mg Chw 162 MG PO DAILY for Blood Clot Prevention, #30 EA Clopidogrel (Plavix) 75 Mg Tab 75 MG PO DAILY for Blood Clot Prevention, #30 TAB Magnesium Oxide (Magnesium Oxide) 400 Mg Tab 400 MG PO Q12HR for Nutritional Supplement, #60 TAB Sacubitril-Valsartan (Entresto) 24-26 Mg Tab 1 TAB PO BID for Blood Pressure Management, #60 TAB Spironolactone (Aldactone) 50 Mg Tab 50 MG PO BID@ for Blood Pressure Management, #60 TAB Leia Brown MD Nov 13, 2017 11:41
--- NOTE | 2017-11-13 11:46 | PD.CARD.PN ---
Subjective Subjective Remarks alert in nad, no events reported Objective Medications Current Medications Medications (Trade) Dose Ordered Sig/Janneth Route Start Time Stop Time Status Last Admin (Tylenol) 650 mg Q6H PRN PO 11/07/17 10:15 11/12/17 04:02 (Zofran Odt) 4 mg Q6H PRN PO 11/07/17 10:15 (Reglan Inj) 10 mg Q6H PRN IV PUSH 11/07/17 10:15 11/10/17 20:11 (Duoneb Neb) 1 ampule Q2HR NEB PRN INH 11/07/17 10:15 ([facility] [place] [facility] 1 Q361D XX 11/07/17 10:15 11/07/17 10:15 (Chlorhexidine 2% Cloth) Taper DAILY@04 TOP 11/08/17 04:00 11/04/18 03:59 11/11/17 04:00 (Chlorhexidine 2% Cloth) 3 pack UNSCH PRN TOP 11/07/17 10:15 (Amna-Colace) 1 tab BID PO 11/07/17 21:00 11/13/17 08:43 (Milk Of Magnesia Liq) 30 ml Q12H PRN PO 11/07/17 10:15 (Senokot) 17.2 mg Q12H PRN PO 11/07/17 10:15 (Dulcolax Supp) 10 mg DAILY PRN RECTAL 11/07/17 10:15 (Lactulose Liq) 30 ml DAILY PRN PO 11/07/17 10:15 (Melatonin) 5 mg HS PO 11/07/17 22:00 11/12/17 20:03 (Morphine Inj) 2 mg Q4H PRN IV PUSH 11/08/17 02:45 11/11/17 19:56 (NS Flush) 2 ml UNSCH PRN IV FLUSH 11/08/17 16:15 11/09/17 08:49 (NS Flush) 2 ml BID IV FLUSH 11/08/17 21:00 11/13/17 08:44 (Aspirin Chew) 162 mg DAILY PO 11/09/17 09:00 11/13/17 08:43 (Plavix) 75 mg DAILY PO 11/09/17 09:00 11/13/17 08:43 (Mexitil) 200 mg TID PO 11/10/17 13:00 11/13/17 11:41 (Aldactone) 50 mg BID@,18 PO 11/11/17 18:00 11/13/17 08:44 (Mag-Ox) 400 mg Q12HR PO 11/11/17 21:00 11/13/17 08:43 (Cordarone) 400 mg TID PO 11/12/17 09:00 11/13/17 11:41 (Entresto 24-26 Mg) 1 tab BID PO 11/11/17 21:00 11/13/17 08:44 (Xanax) 0.5 mg Q8H PRN PO 11/11/17 20:45 11/13/17 05:28 (Flonase Van Spr) 1 spray BID NASAL 11/12/17 21:00 11/13/17 08:44 (Heparin Inj) 5,000 units Q12HR SQ 11/12/17 21:00 11/13/17 09:00 Vital Signs / I&O Vital Signs Date Time Temp Pulse Resp B/P (MAP) Pulse Ox O2 Delivery O2 Flow Rate FiO2 11/13/17 10:27 97 21 11/13/17 07:40 98.9 76 16 125/81 (96) 100 11/13/17 07:40 100 Room Air 11/13/17 07:00 78 11/13/17 06:00 70 11/13/17 05:00 69 11/13/17 04:00 78 11/13/17 04:00 98.6 78 18 127/76 (93) 97 11/13/17 03:00 76 11/13/17 02:00 73 11/13/17 01:00 72 11/13/17 00:00 98.0 75 18 103/68 (80) 98 11/13/17 00:00 75 11/12/17 23:00 79 11/12/17 22:00 75 11/12/17 21:53 100 Nasal Cannula 2.00 11/12/17 21:00 82 11/12/17 20:00 74 11/12/17 20:00 98.2 83 18 116/80 (92) 97 11/12/17 20:00 Room Air 11/12/17 18:00 82 11/12/17 17:00 78 11/12/17 16:00 74 11/12/17 15:20 98.9 80 16 125/77 (93) 100 11/12/17 15:00 76 11/12/17 15:00 76 11/12/17 14:00 76 11/12/17 13:00 84 11/12/17 12:00 72 I/O 11/12/17 11/12/17 11/12/17 11/13/17 11/13/17 11/13/17 07:00 15:00 23:00 07:00 15:00 23:00 Intake Total 480 ml 1440 ml 480 ml Output Total 1200 ml 1525 ml 1600 ml Balance -720 ml -85 ml -1120 ml Intake Oral 480 ml 1440 ml 480 ml Output Urine Total 1200 ml 1525 ml 1600 ml # Bowel Movements 0 0 Physical Exam GENERAL: SKIN: Warm and dry. HEAD: Normocephalic. EYES: No scleral icterus. No injection or drainage. NECK: Supple, trachea midline. No JVD or lymphadenopathy. CARDIOVASCULAR: Regular rate and rhythm without murmurs, gallops, or rubs. RESPIRATORY: Breath sounds equal bilaterally. No accessory muscle use. GASTROINTESTINAL: Abdomen soft, non-tender, nondistended. MUSCULOSKELETAL: No cyanosis, or edema. BACK: Nontender without obvious deformity. No CVA tenderness. Laboratory Laboratory Tests Test 11/12/17 19:47 11/13/17 04:08 Hepatitis A IgM Antibody NONREACTIVE Hepatitis B Surface Antigen NONREACTIVE Hepatitis B Core IgM Antibody NONREACTIVE Hepatitis C IgG Antibody NONREACTIVE White Blood Count 7.5 TH/MM3 Red Blood Count 4.44 MIL/MM3 Hemoglobin 14.9 GM/DL Hematocrit 43.6 % Mean Corpuscular Volume 98.1 FL Mean Corpuscular Hemoglobin 33.6 PG Mean Corpuscular Hemoglobin Concent 34.2 % Red Cell Distribution Width 13.2 % Platelet Count 199 TH/MM3 Mean Platelet Volume 9.7 FL Blood Urea Nitrogen 16 MG/DL Creatinine 0.91 MG/DL Random Glucose 104 MG/DL Calcium Level 8.6 MG/DL Magnesium Level 2.3 MG/DL Sodium Level 138 MEQ/L Potassium Level 4.0 MEQ/L Chloride Level 104 MEQ/L Carbon Dioxide Level 26.0 MEQ/L Anion Gap 8 MEQ/L Estimat Glomerular Filtration Rate 86 ML/MIN B-Type Natriuretic Peptide 52 PG/ML Assessment and Plan Problem List: (1) CAD (coronary artery disease) ICD Codes: I25.10 - Atherosclerotic heart disease of [place] coronary artery without angina pectoris (2) S/P CABG x 3 ICD Codes: Z95.1 - Presence of aortocoronary bypass graft (3) Cardiomyopathy ICD Codes: I42.9 - Cardiomyopathy, unspecified (4) ICD (implantable cardioverter-defibrillator) battery depletion ICD Codes: Z45.02 - Encounter for adjustment and management of automatic implantable cardiac defibrillator (5) CHF (congestive heart failure) ICD Codes: I50.9 - Heart failure, unspecified (6) Dyspnea ICD Codes: R06.00 - Dyspnea, unspecified (7) Palpitations ICD Codes: R00.2 - Palpitations (8) Tobacco abuse ICD Codes: Z72.0 - Tobacco use (9) Wide-complex tachycardia ICD Codes: I47.2 - Ventricular tachycardia (10) Ventricular tachycardia ICD Codes: I47.2 - Ventricular tachycardia Assessment and Plan 1.) Ventricular tachycardia - VT appears to be nonischemic in origin as he is completely revascularized 11/08/17; replete electrolytes prn; remains in narrow complex nsr s/p cardioversion with synchronized 360 j 11/09/17, lidocaine drip discontinued by Dr Marina, started on po mexilitine and amiodarone per Dr Marina, icd threshold changed to 150 bpm with atp pre shock algorhythm, s/p atp x 2 last evening, d/w Dr Marina, Dr Marina rec continue current meds 2.) CAD - continue aspirin, plavix, statin held due to increased lfts 3.) Cardiomyopathy - continue altace, increase aldactone 50 mg bid, add magnesium, lasix, f/u bnp/bmp; there is uncertainty of his ability to tolerate beta blockers has he developed hypotension and diaphoresis with administration of 5 mg iv lopressor and recurrent vt occurred @ 2-3 hours after he was given coreg 3.125 mg po, so i have discontinued coreg and will defer risks and benefits of beta leigh use to EP; entresto added, f/u bnp, bmp in am, d/w patient and nurse; patient is now euvolemic, creatinine stable, ok to dc from cv standpoint on current meds, patient advised to f/u with me in my office , explained to him noncompliance with aspirin and plavix could lead to life threatening stent thrombosis and to rx's filled immediately; d/w Moe House MD Nov 13, 2017 11:46
[2017-11-13] MEDS ORDERED: MEXI200 PO (12:24)
== END 2017-11-13 12:38 | disposition home or self-care (01) | DRG 249 ==
LOC: NEDDLT 08:03 → HIMW 09:37 → HCIS 11-09 11:38 → HCVI 11-09 18:20 → HCIS 11-11 15:00
PROVIDERS: ADMIT Family Medicine; ATTEND Family Medicine
PROC: 02713FZ Dilation of Coronary Artery, Two Arteries with Three Intraluminal Devices, Percutaneous Approach (ICD-10-PCS; principal; 2017-11-08)
PROC: 4A023N8 Measurement of Cardiac Sampling and Pressure, Bilateral, Percutaneous Approach (ICD-10-PCS; 2017-11-08)
PROC: B2121ZZ Fluoroscopy of Single Coronary Artery Bypass Graft using Low Osmolar Contrast (ICD-10-PCS; 2017-11-08)
PROC: B2111ZZ Fluoroscopy of Multiple Coronary Arteries using Low Osmolar Contrast (ICD-10-PCS; 2017-11-08)
PROC: B2151ZZ Fluoroscopy of Left Heart using Low Osmolar Contrast (ICD-10-PCS; 2017-11-08)
PROC: B2181ZZ Fluoroscopy of Left Internal Mammary Bypass Graft using Low Osmolar Contrast (ICD-10-PCS; 2017-11-08)
PROC: 4A033BC Measurement of Arterial Pressure, Coronary, Percutaneous Approach (ICD-10-PCS; 2017-11-08)
PROC: 5A2204Z Restoration of Cardiac Rhythm, Single (ICD-10-PCS; 2017-11-09)
PROC: 5A2204Z Restoration of Cardiac Rhythm, Single (ICD-10-PCS; 2017-11-09)
PROC: 5A2204Z Restoration of Cardiac Rhythm, Single (ICD-10-PCS; 2017-11-09)
PROC: 5A2204Z Restoration of Cardiac Rhythm, Single (ICD-10-PCS; 2017-11-09)
DX: I47.1 Supraventricular tachycardia (principal); I47.2 Ventricular tachycardia; I50.9 Heart failure, unspecified; T82.858A Stenosis of other vascular prosthetic devices, implants and grafts, initial encounter; E83.42 Hypomagnesemia; I48.91 Unspecified atrial fibrillation; I25.10 Atherosclerotic heart disease of native coronary artery without angina pectoris; I25.5 Ischemic cardiomyopathy; F17.290 Nicotine dependence, other tobacco product, uncomplicated; Z95.810 Presence of automatic (implantable) cardiac defibrillator; I25.2 Old myocardial infarction; Z95.1 Presence of aortocoronary bypass graft; J30.9 Allergic rhinitis, unspecified
CPT/HCPCS: 71045; 80048; 80053; 80061; 80074; 80076; 82550; 83036; 83735; 83880; 84100; 84439; 84443; 84484; 85002; 85025; 85027; 85610; 85730; 87641; 92928; 92929; 93005; 93306; 93461; 93571; 93572; 96374; 96375; 96376; C1769; C1876; C1887; C1893; J0153; J0282; J0610; J1644; J1940; J2001; J2250; J2270; J2550; J2720; J2765; J3010; J3475; J7030; J7050; J7060; Q9967